=== PATIENT | male | born 2000 | race Two or more races ===

== ENCOUNTER 2023-11-05 14:41 | Outpatient (REF) | payer OTHER, SELFPAY ==
[2023-11-05 16:19] LABS: Immature Retic Fraction 29.6 % (2.3-13.4); Retic HGB Equivalent 35.9 pg (30.0-35.0); Reticulocytes Absolute 0.147 X10*6/uL (0.026-0.095)
[2023-11-05 17:34] LABS: Anion Gap 12 (12-20); Blood Urea Nitrogen 8 mg/dL (9-16); Calcium 9.5 mg/dL (8.4-10.2); Carbon Dioxide 26 mmol/L (22-29); Chloride 106 mmol/L (96-108); Estimated Glomerular Filt Rate > 60; Glucose Random 86 mg/dL (60-115); Potassium 4.1 mmol/L (3.3-5.1); Sodium 140 mmol/L (135-145)
[2023-11-05 17:36] LABS: Alanine Aminotransferase 15 U/L (0-40); Albumin Level 4.3 g/dL (3.5-5.0); Alkaline Phosphatase 61 U/L (39-117); Aspartate Amino Transferase 25 U/L (5-37); Bilirubin Direct 0.5 mg/dL (0.0-0.5); Bilirubin Total 1.4 mg/dL (0.0-1.0); Total Protein 7.8 g/dL (6.5-8.0)
[2023-11-05 20:20] LABS: Creatinine Urine 87.39 mg/dL; Microalbum/Creatinine Ratio Ur 26.3 ug/mg cr (<30)
[2023-11-06 01:58] LABS: CT PCR NOT DETECTED (Not Detect.); NG PCR NOT DETECTED (Not Detect.)
[2023-11-06 08:00] LABS: HBc Num1 0.38 S/CO (0.00-0.79); HBsAGNum1 0.28 S/CO (0.00-0.99); HIV AB/AG Nonreactive (Nonreactive); HIV Num 1 0.05 S/CO (0.00-0.99); Hepatitis A Antibody IgM 0.43 Index (0-0.79); Hepatitis B Core Antibody Nonreactive (Nonreactive); Hepatitis B Surface Antigen Negative (Negative); ~HepC Num1 0.14 S/CO (0.00-0.79); ~Hepatitis A Antibody IgM Nonreactive (Nonreactive); ~Hepatitis B Surface Antibody REACTIVE (Nonreactive); ~Hepatitis C Antibody Nonreactive (Nonreactive)
[2023-11-11 14:28] LABS: Hematocrit 30.6 % (38.5-50.0); Hemoglobin 10.4 g/dL (13.2-17.1); MCH 35.7 pg (27.0-33.0); MCV 105.2 fL (80.0-100.0); RBC 2.91 Million/uL (4.20-5.80); RDW 16.2 % (11.0-15.0)
== END 2023-11-05 14:42 | disposition home or self-care (01) ==
LOC: HO.HHCL 14:41
PROVIDERS: Nurse Practitioner Primary Care; Visit Provider Internal Medicine
DX: D57.1 Sickle-cell disease without crisis (principal); Z20.2 Contact with and (suspected) exposure to infections with a predominantly sexual mode of transmission
CPT/HCPCS: 0353U; 36415; 80048; 80076; 82043; 82570; 83020; 85014; 85018; 85041; 85045; 86592; 86704; 86706; 86709; 86803; 87340; 87389; 87661

== ENCOUNTER 2024-05-22 17:57 | Emergency (ER) | payer OTHER, SELFPAY ==
--- NOTE | ~2024-05-22 | XR_ITS ---
EXAMINATION: XR CHEST CLINICAL INFORMATION: chest pain COMPARISON: Chest pain. TECHNIQUE: 2 views of the chest were obtained. FINDINGS: No significant abnormality is noted involving the heart, lungs, mediastinum, bony thorax or soft tissues. XR/XR chest 2V IMPRESSION: Unremarkable examination. Electronically signed by: Moreno Dykes MD 05/22/2024 07:58 PM [facility]
--- NOTE | 2024-05-22 17:58 | ECG_ITS ---
Test Reason : CP Blood Pressure : / mmHG Vent. Rate : 078 BPM Atrial Rate : 078 BPM P-R Int : 126 ms QRS Dur : 100 ms QT Int : 366 ms P-R-T Axes : 030 037 047 degrees QTc Int : 417 ms Normal sinus rhythm with sinus arrhythmia Normal ECG No previous ECGs available Referred By: Generic ED Physician Electronically Signed By:ISMAEL CHAVEZ
[2024-05-22 18:13] VITALS: BP 145/64; PULSE 87; RESP 18; TEMP 37.2; O2SAT 96; BMI 22.3
--- NOTE | 2024-05-22 18:19 | ED_ITS ---
HPI - Chest Pain General Chief Complaint: Chest Pain Stated Complaint: chest pain Time Seen by Provider: 05/22/24 19:26 Source: patient, RN notes reviewed, old records reviewed and certified court interpreter Mode of arrival: ambulatory Limitations: no limitations History of Present Illness ED Provider: Jennifer KINCAID narrative: 24-year-old male presents for evaluation of chest pain. The patient reports associated nausea and vomiting. His symptoms started about 16 hours ago per his report. Denies any abdominal pain He reports that he has not eaten since his symptoms started so he is unsure if this makes it better or worse He denies any fevers or chills He is unsure if he has a history of sickle cell disease, but he does state he has had similar pains like this in the past His pain is 04/01 Related Data Previous Rx's ?Medication ?Instructions ?Recorded aluminum-mag hydroxide-simethicone 10 ml PO 5XD PRN dyspepsia #3,000 05/22/24 200 mg-200 mg-20 mg/5 mL oral susp mL (Antacid M) omeprazole 20 mg capsule,delayed 20 mg PO DAILY #14 caps 05/22/24 release Allergies Allergy/AdvReac Type Severity Reaction Status Date / Time No Known Allergies Allergy Verified 05/22/24 18:16 Review of Systems 2 Constitutional: Constitutional: Denies body ache(s), Denies chills, Denies fever(s) and Denies headache(s) Eyes: Eyes: Denies irritation ENT: Denies vertigo, Denies dizziness and Denies headache(s) Cardiovascular: Cardiovascular: Reports chest pain and Denies dyspnea Respiratory: Respiratory: Denies cough and Denies dyspnea Gastrointestinal: Gastrointestinal: Denies abdominal pain, Denies nausea and Denies vomiting Musculoskeletal: Musculoskeletal: Denies back pain Integumentary/Breasts: Skin/Breast: Denies rash Neurologic: Denies vertigo, Denies dizziness and Denies headache(s) [facility] Social History Social History Advance Directives: No Advance Directives Information Provided: No Do you have a plan to hurt others: No Plan Physical Exam 2 Vital Signs: Vital Signs: Last Vital Signs Temp 99.2 F 05/22/24 20:23 Pulse 90 05/22/24 20:23 Resp 16 05/22/24 20:23 BP 121/63 05/22/24 20:23 Pulse Ox 96 05/22/24 20:23 O2 Del Method Room Air 05/22/24 20:23 BMI result Body Mass Index 22.3 Const: General: healthy appearing, comfortable, no acute distress, alert and awake Nutritional Appearance: well nourished Orientation/consciousness: p atient oriented x3 HEENT: Head: Yes normocephalic and Yes atraumatic Eyes: Eyelids: Yes eyelids normal Conjunctivae: conjunctivae normal S clerae: sclerae normal Corneas: corneas normal Pupils: Equal, round and reactive pupils present EOM: EOMs intact bilaterally Neck: Neck: Yes full ROM Resp: Effort & Inspection: normal respiratory effort, able to speak in complete sentences, no audible wheezes and not labored Auscultation: clear to auscultation bilaterally Cardio: Rate: regular rate Rhythm: regular rhythm GI: Inspection: No distended Palpation (GI): Soft to palpation, not firm, nontender (Nontender to the entire abdomen including the RUQ, LUQ and epigastrum), no guarding and not rigid Skin: General skin exam: elasticity normal Neuro: General: patient oriented x3 Cranial nerves: Yes Equal, round and reactive pupils present and Yes Bilaterally intact EOM present Cognition (Neuro): normal cognition Course Course Course Narrative: This is a Rapid Medical Examination (RME) performed by Kee Gordillo PA-C in triage. Full HPI, ROS, assessment and treatment plan per primary provider in the Main ED. 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 Denies fever, chills, sore throat, cough, sob, abd pain. + well appearing Plan: labs, ekg, viral swabs, cxr Reevaluation(s) Reevaluation #1: Patient's pain decreased from a 7 to a 2 with GI cocktail. This makes GI etiology much more likely. The patient's EKG is nonischemic, troponin is flat, he rules out for ACS. Again he does appear to have sickle cell disease but does not appear to be in [place] cell crisis, he will be discharged to follow up with GI Time: 21:02 Medications Administered Discontinued Medications Generic Name Dose Route Start Last Admin Trade Name Freq PRN Reason Stop Dose Admin Al Hydroxide/Mg Hydroxide 30 ml 05/22/24 19:38 05/22/24 19:48 Magnesium Hydrox/Alum Hydrox 30 Ml Oral.Susp PO 05/22/24 19:39 30 ml ONCE ONE Administration Lidocaine HCl 15 ml 05/22/24 19:38 05/22/24 19:48 Lidocaine Hcl Viscous 2 % 15 Ml Solution MUCOUS MEM 05/22/24 19:39 15 ml ONCE ONE Administration Ondansetron HCl 4 mg 05/22/24 19:38 05/22/24 19:48 Ondansetron Odt 4 Mg Tab.Rapdis TRANSLINGU 05/22/24 19:39 4 mg ONCE ONE Administration Medical Decision Making Medical Decision Making [facility] Narrative: 24-year-old male presents for evaluation of chest pain. He is quite well appearing vital signs are stable. His EKG is nonischemic. Initial troponin is 5.2. His hematology was not drawn, unclear why. I will make sure this is drawn with his repeat troponin. Based on his previous outpatient labs from October of this year does appear the patient likely has sickle cell disease as he was anemic with a high reticulocyte count. The patient's bilirubin is elevated 2.1 but he has no abdominal pain or tenderness, doubt obstructive biliary disease. Differential Diagnosis Differential Diagnoses: The differential diagnosis associated with the presentation includes Chest pain ACS Sickle cell disease Sickle cell crisis Pneumonia Bronchitis GERD Biliary disease Lab Data [facility] Lab Attestation statement: I reviewed the patient's lab results. Patient has a mild leukocytosis to 13.1 with a left shift. This may be related to a gastritis or viral illness. He does have a chronic anemia with an elevated reticulocyte count. His anemia is consistent with his baseline dating back to October of this year. His reticulocyte count is elevated to 7.8% chemistries show no significant concerning abnormalities. The bilirubin is slightly elevated as documented for, this may be related to sickle cell trait/sickle cell disorder. There was no evidence of sickle cell crisis. The patient's initial troponin was side 5.2 with a repeat of 6.1. 05/22/24 20:29 05/22/24 18:37 Labs: Lab Results 05/22/24 05/22/24 Range/Units 18:37 20:29 WBC 13.1 H (4.8-10.8) X10*3/uL RBC 3.05 L (4.60-5.80) X10*6/uL Hgb 10.4 L (14.0-18.0) g/dl Hct 28.4 L (42.0-52.0) % MCV 93.1 (80.0-98.0) fL MCH 34.1 H (27.0-33.0) pg MCHC 36.6 H (31.0-36.0) g/dl RDW 17.2 H (11.0-16.0) % Plt Count 353 (160-400) X10*3/uL MPV 9.8 (9.4-12.4) fL Immature Gran % (Auto) 1.1 H (0.0-0.4) % Neut % (Auto) 80.5 H (45-73) % Lymph % (Auto) 10.4 L (20-40) % [place] % (Auto) 7.7 (2-11) % Eos % (Auto) 0.1 (0-4) % Baso % (Auto) 0.2 (0-2) % Lymph # (Auto) 1.4 (1.2-4.9) X10*3/uL [place] # (Auto) 1.0 (0.1-1.2) X10*3/uL Eos # (Auto) 0.0 (0.0-0.4) X10*3/uL Baso # (Auto) 0.0 (0.0-0.2) X10*3/uL Abs Immat Gran (auto) 0.14 H (0.00-0.03) X10*3/uL Absolute Neuts (auto) 10.5 H (2.0-8.3) x10*3/uL Absolute Nucleated RBC 0.350 H (0.0-0.012) X10*3/uL Nucleated RBC % (auto) 2.7 H (0.0-0.2) /100WBC Sodium 139 (135-145) mmol/L Potassium 4.3 (3.3-5.1) mmol/L Chloride 104 (96-108) mmol/L Carbon Dioxide 23 (22-29) mmol/L Anion Gap 16 (12-20) BUN 8 L (9-16) mg/dL Creatinine 0.74 (0.5-1.4) mg/dL Estim Creat Clear Calc 150.2 Estimated GFR > 60 Random Glucose 106 (60-115) mg/dL Calcium 9.7 (8.4-10.2) mg/dL Magnesium 1.5 L (1.6-2.6) mg/dL Total Bilirubin 2.1 H (0.0-1.0) mg/dL AST 59 H (5-37) U/L ALT 27 (0-40) U/L Alkaline Phosphatase 69 (39-117) U/L Troponin I High Sens 5.2 6.1 (<3.5-35.0) ng/L Total Protein 8.4 H (6.5-8.0) g/dL Albumin 4.6 (3.5-5.0) g/dL Lipase 12 (8-78) U/L Influenza Type A (PCR) NEGATIVE (Negative) Influenza Type B (PCR) NEGATIVE (Negative) RSV RNA Qual (PCR) NEGATIVE (Negative) SARS-CoV-2 RNA (RT-PCR) NEGATIVE (Negative) Discharge Plan Discharge Clinical Impression: Chest pain Patient Disposition: Home, Self-Care Instructions: Chest Pain (ED), Gastroesophageal Reflux Disease (ED) Additional Instructions: Your symptoms are most likely related to heartburn or gastritis. I recommend taking omeprazole 20 mg daily for the next 2 weeks. You may follow-up with GI, Dr. Granados at the number provided You may use Tylenol for additional pain. I would avoid using ibuprofen as this may worsen your symptoms Prescriptions: New omeprazole 20 mg capsule,delayed release(DR/EC) 20 mg PO DAILY Qty: 14 0RF alum-mag hydroxide-simeth [Antacid M] 200-200-20 mg/5 mL suspension 10 ml PO 5XD PRN (Reason: dyspepsia) Qty: 3000 0RF Rx Instructions: administer between meals and at bedtime Referrals: Dylan Granados MD [Physician] - (GERD) Print Language: Kazakh
[2024-05-22 19:02] LABS: Anion Gap 16 (12-20)
[2024-05-22 19:03] LABS: Alanine Aminotransferase 27 U/L (0-40); Albumin Level 4.6 g/dL (3.5-5.0); Alkaline Phosphatase 69 U/L (39-117); Aspartate Amino Transferase 59 U/L (5-37); Bilirubin Total 2.1 mg/dL (0.0-1.0); Blood Urea Nitrogen 8 mg/dL (9-16); Calcium 9.7 mg/dL (8.4-10.2); Carbon Dioxide 23 mmol/L (22-29); Chloride 104 mmol/L (96-108); Creatinine Clr Calc Pharmacy 150.2; Estimated Glomerular Filt Rate > 60; Glucose Random 106 mg/dL (60-115); Lipase 12 U/L (8-78); Magnesium 1.5 mg/dL (1.6-2.6); Potassium 4.3 mmol/L (3.3-5.1); Sodium 139 mmol/L (135-145); Total Protein 8.4 g/dL (6.5-8.0)
[2024-05-22 19:06] LABS: Troponin-I High Sensitivity 5.2 ng/L (<3.5-35.0)
[2024-05-22 19:22] LABS: Influenza A PCR NEGATIVE (Negative); Influenza B PCR NEGATIVE (Negative); Resp Syncy Virus RNA Qual PCR NEGATIVE (Negative); SARS COV2 PCR INHOUSE NEGATIVE (Negative)
[2024-05-22] MEDS: Ondansetron ODT 4 MG TAB.RAPDIS TRANSLINGU (19:48)
[2024-05-22] MEDS: Magnesium Hydrox/Alum Hydrox 30 ML ORAL.SUSP PO (19:48)
[2024-05-22] MEDS: Lidocaine HCl Viscous 2 % 15 ML SOLUTION MUCOUS MEM (19:48)
--- NOTE | 2024-05-22 19:54 | PC.NURSE ---
pt medicated according to malik family at bedside per myranda karen repeat cbc and trop @ 2044
[2024-05-22 20:23] VITALS: BP 121/63; PULSE 90; RESP 16; TEMP 37.3; O2SAT 96
[2024-05-22 20:34] LABS: Basophils Percent Auto 0.2 % (0-2); Eosinophils Percent Auto 0.1 % (0-4); Hematocrit 28.4 % (42.0-52.0); Hemoglobin 10.4 g/dl (14.0-18.0); Imm Gran Abs Auto 0.14 X10*3/uL (0.00-0.03); Imm Gran Pct Auto 1.1 % (0.0-0.4); Lymphocytes Absolute Auto 1.4 X10*3/uL (1.2-4.9); Lymphocytes Percent Auto 10.4 % (20-40); MANUAL DIFF FLAG NO; Mean Corpuscular HGB Conc 36.6 g/dl (31.0-36.0); Mean Corpuscular Hemoglobin 34.1 pg (27.0-33.0); Mean Corpuscular Volume 93.1 fL (80.0-98.0); Mean Platelet Volume 9.8 fL (9.4-12.4); Monocytes Percent Auto 7.7 % (2-11); Neutrophils Absolute Auto 10.5 x10*3/uL (2.0-8.3); Neutrophils Percent Auto 80.5 % (45-73); Platelet Count 353 X10*3/uL (160-400); Red Blood Count 3.05 X10*6/uL (4.60-5.80); Red Cell Distribution Width 17.2 % (11.0-16.0); White Blood Count 13.1 X10*3/uL (4.8-10.8)
[2024-05-22 20:42] LABS: NRBC Pct Auto 2.7 /100WBC (0.0-0.2)
[2024-05-22 20:53] LABS: Troponin-I High Sensitivity 6.1 ng/L (<3.5-35.0)
[2024-05-22 20:56] LABS: Immature Retic Fraction 20.8 % (2.3-13.4); Reticulocyte Percent 7.8 % (0.5-1.8)
[2024-05-22 21:53] VITALS: BP 118/62; PULSE 88; RESP 16; TEMP 37.2; O2SAT 97
== END 2024-05-22 21:35 | disposition home or self-care (01) ==
PROVIDERS: Physician Assistant; Physician Assistant Medical; Emergency Provider Emergency Medicine Emergency Medical Services
DX: R07.9 Chest pain, unspecified (principal); Z03.818 Encounter for observation for suspected exposure to other biological agents ruled out; R11.2 Nausea with vomiting, unspecified; D64.9 Anemia, unspecified; Z79.899 Other long term (current) drug therapy
CPT/HCPCS: 0241U; 36415; 71046; 80053; 83690; 83735; 84484; 85025; 85045; 93005; 99283; 99285

== ENCOUNTER → 2024-05-22 17:58 | Outpatient (BNV) | payer OTHER, SELFPAY | PROVIDERS: Emergency Provider Emergency Medicine Emergency Medical Services; Visit Provider Internal Medicine | DX: I49.9 Cardiac arrhythmia, unspecified (principal) | CPT/HCPCS: 93010 ==

== ENCOUNTER 2024-06-22 16:08 | Emergency (ER) | payer OTHER, SELFPAY ==
--- NOTE | 2024-06-22 | ECG_ITS ---
Test Reason : CP Blood Pressure : / mmHG Vent. Rate : 059 BPM Atrial Rate : 059 BPM P-R Int : 136 ms QRS Dur : 102 ms QT Int : 400 ms P-R-T Axes : 042 051 053 degrees QTc Int : 396 ms Sinus bradycardia Otherwise normal ECG When compared with ECG of 22-MAY-2024 17:55, No significant change was found Referred By: Generic ED Physician Electronically Signed By:LOUIE BARAHONA MD
--- NOTE | ~2024-06-22 | XR_ITS ---
EXAMINATION: XR CHEST CLINICAL INFORMATION: chest pain COMPARISON: None available. TECHNIQUE: 2 views of the chest were obtained. FINDINGS: No significant abnormality is noted involving the heart, lungs, mediastinum, bony thorax or soft tissues. XR/XR chest 2V IMPRESSION: Unremarkable chest exam. Electronically signed by: Dru Mathur MD 06/22/2024 04:35 PM [facility]
--- NOTE | 2024-06-22 16:22 | ED_ITS ---
HPI - General Adult General Chief complaint: Chest Pain Stated complaint: Chest pain Related Data Previous Rx's ?Medication ?Instructions ?Recorded aluminum-mag hydroxide-simethicone 10 ml PO 5XD PRN dyspepsia #3,000 05/22/24 200 mg-200 mg-20 mg/5 mL oral susp mL (Antacid M) omeprazole 20 mg capsule,delayed 20 mg PO DAILY #14 caps 05/22/24 release aluminum-mag hydroxide-simethicone 10 ml PO 5XD #3,000 mL 06/23/24 200 mg-200 mg-20 mg/5 mL oral susp omeprazole 20 mg capsule,delayed 20 mg PO DAILY #30 caps 06/23/24 release Allergies Allergy/AdvReac Type Severity Reaction Status Date / Time No Known Allergies Allergy Verified 06/23/24 09:52 [facility] Social History Social History Alcohol intake: current Alcohol intake frequency: holidays/special occasions only Smoked in Last 30 Days: No Use of substances other than those prescribed or required for medical reasons: No Advance Directives: No Advance Directives Information Provided: No Do you have a plan to hurt others: No Plan Physical Exam ED Vital Signs: BMI result Body Mass Index 22.0 Course Course Course Narrative: This is a rapid medical exam performed by Nita Cerrato NP: Additional HPI, ROS, PE not included below will be deferred to primary provider. Patient is a 24-year-old Swedish speaking male presenting to the ED with complaint of chest pain. 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 Plan: EKG, labs, CXR Medical Decision Making Lab Data 06/22/24 16:50 06/22/24 16:50 Labs: Lab Results 06/22/24 Range/Units 16:50 WBC 12.6 H (4.8-10.8) X10*3/uL RBC 2.88 L (4.60-5.80) X10*6/uL Hgb 10.1 L (14.0-18.0) g/dl Hct 27.2 L (42.0-52.0) % MCV 94.4 (80.0-98.0) fL MCH 35.1 H (27.0-33.0) pg MCHC 37.1 H (31.0-36.0) g/dl RDW 18.0 H (11.0-16.0) % Plt Count 226 D (160-400) X10*3/uL MPV 10.1 (9.4-12.4) fL Immature Gran % (Auto) 1.5 H (0.0-0.4) % Neut % (Auto) 70.9 (45-73) % Lymph % (Auto) 19.6 L (20-40) % [place] % (Auto) 7.2 (2-11) % Eos % (Auto) 0.5 (0-4) % Baso % (Auto) 0.3 (0-2) % Lymph # (Auto) 2.5 (1.2-4.9) X10*3/uL [place] # (Auto) 0.9 (0.1-1.2) X10*3/uL Eos # (Auto) 0.1 (0.0-0.4) X10*3/uL Baso # (Auto) 0.0 (0.0-0.2) X10*3/uL Abs Immat Gran (auto) 0.19 H (0.00-0.03) X10*3/uL Absolute Neuts (auto) 8.9 H (2.0-8.3) x10*3/uL Absolute Nucleated RBC 0.590 H (0.0-0.012) X10*3/uL Nucleated RBC % (auto) 4.7 H (0.0-0.2) /100WBC Smear Path Review Cancelled Sodium 137 (135-145) mmol/L Potassium 4.7 (3.3-5.1) mmol/L Chloride 107 (96-108) mmol/L Carbon Dioxide 20 L (22-29) mmol/L Anion Gap 15 (12-20) BUN 10 (9-16) mg/dL Creatinine 0.69 (0.5-1.4) mg/dL Estim Creat Clear Calc 159.2 Estimated GFR > 60 Random Glucose 116 H (60-115) mg/dL Calcium 9.5 (8.4-10.2) mg/dL Total Bilirubin 1.9 H (0.0-1.0) mg/dL AST 70 H (5-37) U/L ALT 31 (0-40) U/L Alkaline Phosphatase 70 (39-117) U/L Troponin I High Sens 3.5 (<3.5-35.0) ng/L Total Protein 8.6 H (6.5-8.0) g/dL Albumin 4.6 (3.5-5.0) g/dL Discharge Plan Discharge Clinical Impression: Chest pain Patient Disposition: Left W/O Completing Treatment Prescriptions: No Action omeprazole 20 mg capsule,delayed release(DR/EC) 20 mg PO DAILY Qty: 30 0RF alum-mag hydroxide-simeth 200-200-20 mg/5 mL suspension 10 ml PO 5XD Qty: 3000 0RF Rx Instructions: administer between meals and at bedtime omeprazole 20 mg capsule,delayed release(DR/EC) 20 mg PO DAILY Qty: 14 0RF alum-mag hydroxide-simeth [Antacid M] 200-200-20 mg/5 mL suspension 10 ml PO 5XD PRN (Reason: dyspepsia) Qty: 3000 0RF Rx Instructions: administer between meals and at bedtime Discharge Date/Time: 06/22/24 19:18
[2024-06-22 16:24] VITALS: BP 126/54; PULSE 67; RESP 16; TEMP 36.9; O2SAT 98; BMI 22.0
[2024-06-22 16:54] LABS: MANUAL DIFF FLAG NO
[2024-06-22 16:59] LABS: Basophils Percent Auto 0.3 % (0-2); Eosinophils Absolute Auto 0.1 X10*3/uL (0.0-0.4); Eosinophils Percent Auto 0.5 % (0-4); Hematocrit 27.2 % (42.0-52.0); Hemoglobin 10.1 g/dl (14.0-18.0); Imm Gran Abs Auto 0.19 X10*3/uL (0.00-0.03); Imm Gran Pct Auto 1.5 % (0.0-0.4); Lymphocytes Absolute Auto 2.5 X10*3/uL (1.2-4.9); Lymphocytes Percent Auto 19.6 % (20-40); Mean Corpuscular HGB Conc 37.1 g/dl (31.0-36.0); Mean Corpuscular Hemoglobin 35.1 pg (27.0-33.0); Mean Corpuscular Volume 94.4 fL (80.0-98.0); Mean Platelet Volume 10.1 fL (9.4-12.4); Monocytes Absolute Auto 0.9 X10*3/uL (0.1-1.2); Monocytes Percent Auto 7.2 % (2-11); Neutrophils Absolute Auto 8.9 x10*3/uL (2.0-8.3); Neutrophils Percent Auto 70.9 % (45-73); Platelet Count 226 X10*3/uL (160-400); Red Blood Count 2.88 X10*6/uL (4.60-5.80); White Blood Count 12.6 X10*3/uL (4.8-10.8)
[2024-06-22 17:01] LABS: NRBC Pct Auto 4.7 /100WBC (0.0-0.2)
[2024-06-22 17:15] LABS: Alanine Aminotransferase 31 U/L (0-40); Albumin Level 4.6 g/dL (3.5-5.0); Alkaline Phosphatase 70 U/L (39-117); Anion Gap 15 (12-20); Aspartate Amino Transferase 70 U/L (5-37); Bilirubin Total 1.9 mg/dL (0.0-1.0); Blood Urea Nitrogen 10 mg/dL (9-16); Calcium 9.5 mg/dL (8.4-10.2); Carbon Dioxide 20 mmol/L (22-29); Chloride 107 mmol/L (96-108); Creatinine Clr Calc Pharmacy 159.2; Estimated Glomerular Filt Rate > 60; Glucose Random 116 mg/dL (60-115); Potassium 4.7 mmol/L (3.3-5.1); Sodium 137 mmol/L (135-145); Total Protein 8.6 g/dL (6.5-8.0)
[2024-06-22 17:36] LABS: Troponin-I High Sensitivity 3.5 ng/L (<3.5-35.0)
== END 2024-06-22 19:18 | disposition left against medical advice (07) ==
PROVIDERS: Registered Nurse Emergency; Emergency Provider Emergency Medicine
DX: R07.89 Other chest pain (principal); Z79.899 Other long term (current) drug therapy
CPT/HCPCS: 36415; 71046; 80053; 84484; 85025; 93005; 99283

== ENCOUNTER → 2024-06-22 16:12 | Outpatient (BNV) | payer OTHER, SELFPAY | PROVIDERS: Emergency Provider Emergency Medicine; Visit Provider Internal Medicine Cardiovascular Disease | DX: R07.9 Chest pain, unspecified (principal) | CPT/HCPCS: 93010 ==

== ENCOUNTER → 2024-06-22 16:26 | Outpatient (BNV) | payer OTHER, SELFPAY | PROVIDERS: Visit Provider Radiology Diagnostic Radiology | DX: R07.9 Chest pain, unspecified (principal) | CPT/HCPCS: 71046 ==

== ENCOUNTER 2024-06-23 09:43 | Emergency (ER) | payer OTHER, SELFPAY ==
[2024-06-23 09:51] VITALS: BP 136/81; PULSE 85; RESP 18; TEMP 37.1; O2SAT 95; BMI 26.4
--- NOTE | 2024-06-23 09:54 | ECG_ITS ---
Test Reason : CHEST PAIN Blood Pressure : / mmHG Vent. Rate : 082 BPM Atrial Rate : 082 BPM P-R Int : 132 ms QRS Dur : 100 ms QT Int : 376 ms P-R-T Axes : 043 023 024 degrees QTc Int : 439 ms Normal sinus rhythm with sinus arrhythmia Normal ECG When compared with ECG of 22-JUN-2024 16:12, No significant change was found Referred By: Generic ED Physician Electronically Signed By:LOUIE BARAHONA MD
[2024-06-23 10:08] LABS: MANUAL DIFF FLAG NO
[2024-06-23 10:09] LABS: Basophils Percent Auto 0.3 % (0-2); Eosinophils Absolute Auto 0.1 X10*3/uL (0.0-0.4); Eosinophils Percent Auto 0.4 % (0-4); Hematocrit 27.4 % (42.0-52.0); Hemoglobin 10.2 g/dl (14.0-18.0); Imm Gran Abs Auto 0.05 X10*3/uL (0.00-0.03); Imm Gran Pct Auto 0.4 % (0.0-0.4); Lymphocytes Absolute Auto 2.8 X10*3/uL (1.2-4.9); Lymphocytes Percent Auto 23.3 % (20-40); Mean Corpuscular HGB Conc 37.2 g/dl (31.0-36.0); Mean Corpuscular Hemoglobin 34.8 pg (27.0-33.0); Mean Corpuscular Volume 93.5 fL (80.0-98.0); Mean Platelet Volume 9.4 fL (9.4-12.4); Monocytes Absolute Auto 0.9 X10*3/uL (0.1-1.2); Monocytes Percent Auto 7.5 % (2-11); NRBC Pct Auto 4.9 /100WBC (0.0-0.2); Neutrophils Absolute Auto 8.1 x10*3/uL (2.0-8.3); Neutrophils Percent Auto 68.1 % (45-73); Platelet Count 256 X10*3/uL (160-400); Red Blood Count 2.93 X10*6/uL (4.60-5.80); Red Cell Distribution Width 18.3 % (11.0-16.0); White Blood Count 11.8 X10*3/uL (4.8-10.8)
--- NOTE | 2024-06-23 10:27 | ED_ITS ---
HPI - General Adult General Chief complaint: General Medical Stated complaint: chest pain abd pain Time Seen by Provider: 06/23/24 10:26 Source: patient, RN notes reviewed, old records reviewed and interpreter and translator Mode of arrival: ambulatory Limitations: language barrier History of Present Illness ED Provider: Saqib KINCAID narrative: Patient is a 24-year-old male presenting with complaint of chest and abdominal pain for the past few days as well as nausea, vomiting, and gas/bloating. Presented here yesterday for similar complaints but left from the waiting room due to long wait time. States that he was also seen in this ED around one month ago for similar complaints and was prescribed medications, but when he went to pick them up, they were not at his pharmacy. Denies fevers, chills, body aches. Denies diarrhea or constipation. Denies hematemesis. MD complaint: chest and abdominal pain Onset (ago): day(s) Location: chest and abdomen Severity: severe Quality: burning Pain Consistency: constant Associated symptoms: nausea/vomiting Treatments prior to arrival: none Related Data Previous Rx's ?Medication ?Instructions ?Recorded aluminum-mag hydroxide-simethicone 10 ml PO 5XD PRN dyspepsia #3,000 05/22/24 200 mg-200 mg-20 mg/5 mL oral susp mL (Antacid M) omeprazole 20 mg capsule,delayed 20 mg PO DAILY #14 caps 05/22/24 release aluminum-mag hydroxide-simethicone 10 ml PO 5XD #3,000 mL 06/23/24 200 mg-200 mg-20 mg/5 mL oral susp omeprazole 20 mg capsule,delayed 20 mg PO DAILY #30 caps 06/23/24 release Allergies Allergy/AdvReac Type Severity Reaction Status Date / Time No Known Allergies Allergy Verified 06/23/24 09:52 Review of Systems 2 Review of Systems: As per HPI. Yes all other systems are reviewed and are negative Constitutional: Constitutional: Reports as per HPI PMF Social History Social History Alcohol intake: current Alcohol intake frequency: holidays/special occasions only Smoked in Last 30 Days: No Use of substances other than those prescribed or required for medical reasons: No Advance Directives: No Advance Directives Information Provided: No Do you have a plan to hurt others: No Plan Physical Exam ED Vital Signs: Vital Signs - 24 hr 06/23/24 09:51 06/23/24 10:59 06/23/24 14:16 Temperature 98.7 F 98.2 F Pulse Rate 85 66 83 Respiratory Rate 18 18 18 Blood Pressure 136/81 109/54 L 122/70 Pulse Oximetry 95 98 96 Oxygen Delivery Method Room Air Room Air Room Air BMI result Body Mass Index 26.4 Vital signs have been reviewed and appear to be correct. Blood pressure normal. Heart rate normal. Respiratory rate normal. Temperature normal. Oxygen saturation normal. Const General: cooperative, healthy appearing and no acute distress Orientation/consciousness: oriented to person, oriented to place, oriented to time and patient oriented x3 Limitations: no limitations HENMT Head: Yes normocephalic and Yes atraumatic Ears: external ears normal General nose exam: Normal external nose present Face and sinus: Yes face symmetric Mouth: oropharynx normal and moist mucous membranes Throat: Yes uvula midline Eyes Pupils: Equal, round and reactive pupils present Neck Neck: Yes normal visual inspection and Yes supple Resp Effort & Inspection: normal respiratory effort and able to speak in complete sentences Auscultation: clear to auscultation bilaterally Cardio Rate: regular rate Rhythm: regular rhythm Heart sounds: S1 normal heart sound present and S2 normal heart sound present GI Inspection: Yes normal to inspection Palpation (GI): Soft to palpation, Tenderness to palpation present (GI) in the epigastrum, no guarding and No Rebound tenderness present Auscultation: normoactive bowel sounds General: Yes no CVA tenderness Back/Spine/Pelvis Back: no CVA tenderness Skin General skin exam: elasticity normal and turgor normal Neuro General: oriented to person, oriented to place, oriented to time, patient oriented x3, moves all extremities, no focal motor deficits and CN's II-XI intact bilaterally Cranial nerves: Yes Equal, round and reactive pupils present Cognition (Neuro): normal cognition Extrem General: Yes full ROM, Yes no pedal edema and Yes no calf tenderness Psych Mental Status: mental status grossly normal Affect: normal affect Thought process: Normal thought process present Medications Administered Discontinued Medications Generic Name Dose Route Start Last Admin Trade Name Freq PRN Reason Stop Dose Admin Al Hydroxide/Mg Hydroxide 30 ml 06/23/24 11:21 06/23/24 12:34 Magnesium Hydrox/Alum Hydrox 30 Ml Oral.Susp PO 06/23/24 11:22 30 ml ONCE ONE Administration Famotidine 20 mg 06/23/24 10:37 06/23/24 11:15 Famotidine/Pf 20 Mg/2 Ml Vial IVPUSH 06/23/24 10:38 20 mg ONCE ONE Administration Hydromorphone HCl 1 mg 06/23/24 12:42 06/23/24 14:18 Hydromorphone Hcl 1 Mg/Ml Syringe IVPUSH 06/23/24 12:43 Not Given ONCE ONE Protocol Sodium Chloride 1,000 mls @ 999 mls/hr 06/23/24 10:45 06/23/24 12:33 Ns IV 06/23/24 11:45 Infused .Q1H1M MATILDE Infusion Lidocaine HCl 15 ml 06/23/24 11:21 06/23/24 12:34 Lidocaine Hcl Viscous 2 % 15 Ml Solution MUCOUS MEM 06/23/24 11:22 15 ml ONCE ONE Administration Ondansetron HCl 4 mg 06/23/24 10:37 06/23/24 11:15 Ondansetron Hcl 4 Mg/2 Ml Vial IVPUSH 06/23/24 10:38 4 mg ONCE ONE Administration Medical Decision Making Medical Decision Making MDM Narrative: Patient is a 24-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 On exam patient is awake, A+Ox3, in no acute distress, VS WNL, afebrile, normal neurological exam without focal deficits, physical exam findings as above. Given reported symptoms and physical exam findings, initial differential includes but is not limited to GERD, PUD, gastritis, sickle cell crisis. Labs notable for anemia consistent with prior lab values, elevated Tbili and AST similar to prior, troponin of 3.8, will obtain repeat. X-ray chest obtained yesterday while patient in the waiting room notable for no evidence of pneumonia, pneumothorax, cardiomegaly. My interpretation is in agreement with the radiologist's interpretation. Patient reports significant improvement in pain after medications given in the ED. No delta on repeat troponin. He states that he is ready for discharge home. I am in agreement with this. Will refer patient to GI for any ongoing symptoms. Will send prescriptions for omeprazole and antacid. Return precautions discussed at bedside. Patient verbalized understanding of and agreement with plan. In- person aerial photograph interpreter was utilized for all interactions, assessments, and discussions. Differential Diagnosis Differential Diagnoses: The differential diagnosis associated with the presentation includes as per [facility] Admission/Observation Consideration of admission/observation: Escalation of care including admission/observation considered Patient would have been admitted to the hospital had their work up had any findings where hospital admission was appropriate and their clinical presentation warranted hospital admission. Lab Data [facility] Lab Attestation statement: I reviewed the patient's lab results. as per [facility] 06/23/24 10:03 06/23/24 10:03 Labs: Lab Results 06/23/24 06/23/24 Range/Units 10:03 13:50 WBC 11.8 H (4.8-10.8) X10*3/uL RBC 2.93 L (4.60-5.80) X10*6/uL Hgb 10.2 L (14.0-18.0) g/dl Hct 27.4 L (42.0-52.0) % MCV 93.5 (80.0-98.0) fL MCH 34.8 H (27.0-33.0) pg MCHC 37.2 H (31.0-36.0) g/dl RDW 18.3 H (11.0-16.0) % Plt Count 256 (160-400) X10*3/uL MPV 9.4 (9.4-12.4) fL Immature Gran % (Auto) 0.4 (0.0-0.4) % Neut % (Auto) 68.1 (45-73) % Lymph % (Auto) 23.3 (20-40) % [place] % (Auto) 7.5 (2-11) % Eos % (Auto) 0.4 (0-4) % Baso % (Auto) 0.3 (0-2) % Lymph # (Auto) 2.8 (1.2-4.9) X10*3/uL [place] # (Auto) 0.9 (0.1-1.2) X10*3/uL Eos # (Auto) 0.1 (0.0-0.4) X10*3/uL Baso # (Auto) 0.0 (0.0-0.2) X10*3/uL Abs Immat Gran (auto) 0.05 H (0.00-0.03) X10*3/uL Absolute Neuts (auto) 8.1 (2.0-8.3) x10*3/uL Absolute Nucleated RBC 0.580 H (0.0-0.012) X10*3/uL Nucleated RBC % (auto) 4.9 H (0.0-0.2) /100WBC Absolute Retic 0.303 H (0.026-0.095) X10*6/uL Percent Retic 9.8 H (0.5-1.8) % Immature Retic Fraction 34.0 H (2.3-13.4) % Retic Hgb Equivalent 31.7 (30.0-35.0) pg Sodium 140 (135-145) mmol/L Potassium 4.0 (3.3-5.1) mmol/L Chloride 106 (96-108) mmol/L Carbon Dioxide 24 (22-29) mmol/L Anion Gap 14 (12-20) BUN 10 (9-16) mg/dL Creatinine 0.78 (0.5-1.4) mg/dL Estim Creat Clear Calc 123.9 Estimated GFR > 60 Random Glucose 115 (60-115) mg/dL Calcium 9.3 (8.4-10.2) mg/dL Total Bilirubin 2.5 H (0.0-1.0) mg/dL AST 59 H (5-37) U/L ALT 28 (0-40) U/L Alkaline Phosphatase 71 (39-117) U/L Troponin I High Sens 3.8 4.2 (<3.5-35.0) ng/L Total Protein 8.3 H (6.5-8.0) g/dL Albumin 4.5 (3.5-5.0) g/dL Independent Interpretation I performed an independent interpretation of an: EKG External Record Review External record reviewed: Inpatient record, Office record and Outpatient record Prescription Management I considered prescription management with: Other Discharge Plan Discharge Clinical Impression: Acute epigastric pain Patient Disposition: Home, Self-Care Instructions: Acute Abdominal Pain (DC), Epigastric Pain (ED), Chest Pain (DC) Additional Instructions: You were evalutated in the ED today for chest and abdominal pain. Your evaluation was reassuring. Your symptoms improved with medication. You are being prescribed medications, pick these up from the pharmacy and take as prescribed. If your symptoms continue, call the gastroenterology office to schedule a follow up appointment. Prescriptions: New omeprazole 20 mg capsule,delayed release(DR/EC) 20 mg PO DAILY Qty: 30 0RF alum-mag hydroxide-simeth 200-200-20 mg/5 mL suspension 10 ml PO 5XD Qty: 3000 0RF Rx Instructions: administer between meals and at bedtime No Action omeprazole 20 mg capsule,delayed release(DR/EC) 20 mg PO DAILY Qty: 14 0RF alum-mag hydroxide-simeth [Antacid M] 200-200-20 mg/5 mL suspension 10 ml PO 5XD PRN (Reason: dyspepsia) Qty: 3000 0RF Rx Instructions: administer between meals and at bedtime Referrals: [facility] [Provider Group] Print Language: Ivorian
[2024-06-23 10:32] LABS: Albumin Level 4.5 g/dL (3.5-5.0); Alkaline Phosphatase 71 U/L (39-117); Anion Gap 14 (12-20); Aspartate Amino Transferase 59 U/L (5-37); Bilirubin Total 2.5 mg/dL (0.0-1.0); Blood Urea Nitrogen 10 mg/dL (9-16); Calcium 9.3 mg/dL (8.4-10.2); Carbon Dioxide 24 mmol/L (22-29); Chloride 106 mmol/L (96-108); Creatinine Clr Calc Pharmacy 123.9; Estimated Glomerular Filt Rate > 60; Glucose Random 115 mg/dL (60-115); Sodium 140 mmol/L (135-145); Total Protein 8.3 g/dL (6.5-8.0)
[2024-06-23 10:36] LABS: Alanine Aminotransferase 28 U/L (0-40)
[2024-06-23 10:47] LABS: Troponin-I High Sensitivity 3.8 ng/L (<3.5-35.0)
[2024-06-23 10:59] VITALS: BP 109/54; PULSE 66; RESP 18; TEMP 36.8; O2SAT 98
[2024-06-23] MEDS: Famotidine/PF 20 MG/2 ML VIAL IVPUSH (11:15)
[2024-06-23] MEDS: ondansetron HCL 4 MG/2 ML VIAL IVPUSH (11:15)
[2024-06-23] MEDS: 0.9 % Sodium Chloride 1,000 ML 999 ML IV (11:15)
[2024-06-23 11:19] LABS: Retic HGB Equivalent 31.7 pg (30.0-35.0); Reticulocyte Percent 9.8 % (0.5-1.8); Reticulocytes Absolute 0.303 X10*6/uL (0.026-0.095)
[2024-06-23] MEDS: Lidocaine HCl Viscous 2 % 15 ML SOLUTION MUCOUS MEM (12:34)
[2024-06-23] MEDS: Magnesium Hydrox/Alum Hydrox 30 ML ORAL.SUSP PO (12:34)
[2024-06-23 14:16] VITALS: BP 122/70; PULSE 83; RESP 18; O2SAT 96
[2024-06-23 14:21] LABS: Troponin-I High Sensitivity 4.2 ng/L (<3.5-35.0)
[2024-06-23 15:19] VITALS: BP 122/70; PULSE 83; RESP 18; TEMP 36.8; O2SAT 96
== END 2024-06-23 15:20 | disposition home or self-care (01) ==
PROVIDERS: Registered Nurse Emergency; Emergency Provider Emergency Medicine
DX: R10.13 Epigastric pain (principal); R11.2 Nausea with vomiting, unspecified; R07.9 Chest pain, unspecified; Z79.899 Other long term (current) drug therapy
CPT/HCPCS: 36415; 80053; 84484; 85025; 85045; 93005; 96361; 96374; 96375; 99284; J2405

== ENCOUNTER → 2024-06-23 09:54 | Outpatient (BNV) | payer OTHER, SELFPAY | PROVIDERS: Emergency Provider Emergency Medicine; Visit Provider Internal Medicine Cardiovascular Disease | DX: R07.9 Chest pain, unspecified (principal) | CPT/HCPCS: 93010 ==

== ENCOUNTER 2024-09-01 14:33 | Inpatient (IN) | payer OTHER, SELFPAY ==
[2024-09-01] VITALS (9 sets, daily range): BP systolic 98–153; BP diastolic 45–63; PULSE 57–96; RESP 13–23; TEMP 36.2–38.3; O2SAT 93–98; BMI 24.5
--- NOTE | ~2024-09-01 | CT_ITS ---
CLINICAL HISTORY: pain CT ABDOMEN AND PELVIS WITH CONTRAST Comparison: None Findings: The lung bases are clear. The gallbladder and solid organs are within normal limits. No renal stones. No bowel obstruction, pneumoperitoneum, or pneumatosis. No ascites. No significant mesenteric or paracolic edema. Large amount of stool in the colon. There is fecal material in the distal small bowel. Smooth luminal narrowing in the sigmoid with no adjacent fat stranding likely represents spasm. Appendix is not identified with certainty. No significant inflammatory changes are seen in its expected location. There are multiple small mesenteric lymph nodes in the right abdomen. Urinary bladder and prostate unremarkable. No acute fracture. IMPRESSION: 1. No obstructive or acute inflammatory changes in the gastrointestinal and genitourinary tracts. 2. Large colonic stool burden. Nonspecific small bowel feces. 3. Increased number of prominent mesenteric lymph nodes in the right abdomen for which the possibility of mesenteric adenitis is raised. This document has been electronically signed by: Deborah Sparrow DO on 09/01/2024 17:30:55
--- NOTE | ~2024-09-01 | XR_ITS ---
EXAMINATION: XR CHEST CLINICAL INFORMATION: pain COMPARISON: None available. TECHNIQUE: Frontal view of the chest was obtained. FINDINGS: Mild cardiac prominence, likely magnification from AP technique. Mediastinal and hilar contours appear normal. The lungs are clear bilaterally. No pneumothorax or effusion. No focal osseous or soft tissue abnormality. XR/XR chest 1V IMPRESSION: Mild prominence of the cardiac silhouette, likely magnification related to technique. Otherwise normal exam. Electronically signed by: Mesfin Buchanan MD 09/01/2024 04:43 PM EDT
--- NOTE | 2024-09-01 15:14 | ECG_ITS ---
Test Reason : ABD PAIN Blood Pressure : */* mmHG Vent. Rate : 85 BPM Atrial Rate : 85 BPM P-R Int : 136 ms QRS Dur : 102 ms QT Int : 362 ms P-R-T Axes : 52 52 39 degrees QTcB Int : 430 ms Sinus rhythm with marked sinus arrhythmia Otherwise normal ECG When compared with ECG of 23-Jun-2024 09:57, No significant change was found Referred By: Generic ED Physician Electronically Signed By: ISMAEL CHAVEZ
[2024-09-01 15:25] LABS: MANUAL DIFF FLAG NO
[2024-09-01 15:28] LABS: Basophils Percent Auto 0.2 % (0-2); Eosinophils Absolute Auto 0.1 X10*3/uL (0.0-0.4); Eosinophils Percent Auto 0.2 % (0-4); Hematocrit 27.7 % (42.0-52.0); Hemoglobin 10.4 g/dl (14.0-18.0); Imm Gran Abs Auto 0.29 X10*3/uL (0.00-0.03); Imm Gran Pct Auto 1.4 % (0.0-0.4); Lymphocytes Percent Auto 14.6 % (20-40); Mean Corpuscular HGB Conc 37.5 g/dl (31.0-36.0); Mean Corpuscular Hemoglobin 34.1 pg (27.0-33.0); Mean Corpuscular Volume 90.8 fL (80.0-98.0); Monocytes Absolute Auto 1.1 X10*3/uL (0.1-1.2); Monocytes Percent Auto 5.5 % (2-11); Neutrophils Absolute Auto 15.8 x10*3/uL (2.0-8.3); Neutrophils Percent Auto 78.1 % (45-73); Red Blood Count 3.05 X10*6/uL (4.60-5.80); Red Cell Distribution Width 16.9 % (11.0-16.0); White Blood Count 20.2 X10*3/uL (4.8-10.8)
[2024-09-01 15:33] LABS: NRBC Pct Auto 1.4 /100WBC (0.0-0.2)
[2024-09-01 15:39] LABS: INTERNATIONAL NORM RATIO 1.2 (0.9-1.1); Prothrombin Time 14.5 SEC (10.9-12.4)
[2024-09-01 15:48] LABS: Troponin-I High Sensitivity 4.6 ng/L (<3.5-35.0)
[2024-09-01 15:55] LABS: Mean Platelet Volume 9.3 fL (9.4-12.4); Platelet Count 627 X10*3/uL (160-400)
[2024-09-01 15:56] LABS: Alanine Aminotransferase 29 U/L (0-40); Albumin Level 4.4 g/dL (3.5-5.0); Anion Gap 13 (12-20); Aspartate Amino Transferase 57 U/L (5-37); Bilirubin Total 1.7 mg/dL (0.0-1.0); Blood Urea Nitrogen 11 mg/dL (9-16); Calcium 9.7 mg/dL (8.4-10.2); Carbon Dioxide 24 mmol/L (22-29); Chloride 106 mmol/L (96-108); Creatinine Clr Calc Pharmacy 134.6; Estimated Glomerular Filt Rate > 60; Glucose Random 153 mg/dL (60-115); Magnesium 1.4 mg/dL (1.6-2.6); Potassium 4.2 mmol/L (3.3-5.1); Sodium 139 mmol/L (135-145); Total Protein 8.7 g/dL (6.5-8.0)
--- NOTE | 2024-09-01 16:11 | ED.GENADULT ---
HPI - General Adult General Chief complaint: General Medical Stated complaint: Liberian speaking only, chest pain, poss sickle princess Time Seen by Provider: 09/01/24 16:10 Source: patient Limitations: no limitations and language barrier History of Present Illness ED Provider: Sherita Proctor PA-C HPI narrative: 24-year-old male with a history of sickle cell disease presents with pain. Patient states she developed diffuse abdominal and chest discomfort earlier today with the associated nausea vomiting. Denies sick contacts with same symptoms, diarrhea, fever or recent cough or cold symptoms. Denies shortness of breath. Related Data Previous Rx's ?Medication ?Instructions ?Recorded aluminum-mag hydroxide-simethicone 10 ml PO 5XD PRN dyspepsia #3,000 05/22/24 200 mg-200 mg-20 mg/5 mL oral susp mL (Antacid M) omeprazole 20 mg capsule,delayed 20 mg PO DAILY #14 caps 05/22/24 release aluminum-mag hydroxide-simethicone 10 ml PO 5XD #3,000 mL 06/23/24 200 mg-200 mg-20 mg/5 mL oral susp omeprazole 20 mg capsule,delayed 20 mg PO DAILY #30 caps 06/23/24 release Allergies Allergy/AdvReac Type Severity Reaction Status Date / Time No Known Allergies Allergy Verified 09/01/24 15:13 Review of Systems Review of Systems: Yes all other systems are reviewed and are negative Constitutional: Constitutional: Denies fatigue and Denies fever(s) Cardiovascular: Cardiovascular: Reports chest pain and Denies dyspnea Respiratory: Respiratory: Denies cough and Denies dyspnea Gastrointestinal: Gastrointestinal: Reports abdominal pain, Denies diarrhea, Reports nausea and Reports vomiting Endocrine: Endocrine: Denies fatigue [facility] Past Medical History Attestation statement: The following information was validated with the patient. Social History Social History Alcohol intake: current Alcohol intake frequency: holidays/special occasions only Smoked in Last 30 Days: No Use of substances other than those prescribed or required for medical reasons: Yes Substance Use Type: Marijuana Advance Directives: No Advance Directives Information Provided: Yes Do you have a plan to hurt others: No Plan Physical Exam ED Vital Signs: Vital Signs - 24 hr 09/01/24 15:12 09/01/24 16:50 09/01/24 17:16 Temperature 100.9 F H 99.3 F Pulse Rate 89 75 Respiratory Rate 18 14 Blood Pressure 98/45 L 120/54 L Pulse Oximetry 98 96 Oxygen Delivery Method Room Air Room Air 09/01/24 18:36 09/01/24 18:45 09/01/24 18:48 Temperature 98.6 F Pulse Rate 90 81 95 Respiratory Rate 23 H 13 13 Blood Pressure 125/53 L 123/56 L 123/56 L Pulse Oximetry 95 95 Oxygen Delivery Method Room Air Room Air BMI result Body Mass Index 24.5 Const Other: Alert, ill-appearing appears extremely uncomfortable Orientation/consciousness: patient oriented x3 HENMT Other: Dry oral mucosa, dry cracked lips Resp Effort & Inspection: normal respiratory effort Cardio Other: Normal peripheral perfusion GI Other: Abdomen is soft, nondistended, generalized tenderness to palpation without guarding Skin Other: Warm dry no rash Neuro General: patient oriented x3, gait normal, no focal motor deficits and CN's II-XI intact bilaterally Psych Other: Cooperative Course Reevaluation(s) Reevaluation #1: Concern for sepsis, the patient's pressures are soft, he has a leukocytosis of 20, adding on blood cultures, lactic acid, weight based IV fluid, ceftriaxone, we need to check if he has a fever.... Adding SARs and a chest x-ray, scanning his abdomen. His focus of pain is chest and abdomen and he has been vomiting. Time: 16:20 Medications Administered Discontinued Medications Generic Name Dose Route Start Last Admin Trade Name Eliceoq PRN Reason Stop Dose Admin Acetaminophen 975 mg 09/01/24 16:52 09/01/24 17:16 Acetaminophen 325 Mg Tablet PO 09/01/24 16:53 975 mg ONCE ONE Administration Ceftriaxone Sodium 2 gm 09/01/24 16:14 09/01/24 16:34 Ceftriaxone Sodium 2 Gm Vial IVPUSH 09/01/24 16:15 2 gm ONCE ONE Administration Hydromorphone HCl 1 mg 09/01/24 16:12 09/01/24 16:34 Hydromorphone Hcl 1 Mg/Ml Syringe IVPUSH 09/01/24 16:13 1 mg ONCE ONE Administration Protocol Hydromorphone HCl 1 mg 09/01/24 17:41 09/01/24 17:54 Hydromorphone Hcl 1 Mg/Ml Syringe IVPUSH 09/01/24 17:42 1 mg ONCE ONE Administration Protocol Magnesium Sulfate 2 gm in 50 mls @ 25 mls/hr 09/01/24 16:12 09/01/24 18:37 Magnesium Sulfate/H2o IV 09/01/24 18:11 Infused ONCE ONE Infusion Sodium Chloride 2,068.38 mls @ 2,068.38 mls/hr 09/01/24 16:14 09/01/24 18:32 Ns 30 ml/kg infuse over 1 hr (2068.38 ml) 09/01/24 17:13 Infused IV Infusion .Q1H STA Iohexol 100 ml 09/01/24 16:55 09/01/24 16:55 Iohexol 350 Mg/Ml 100 Ml Infus..Btl IV 09/01/24 16:56 85 ml ONCE ONE Administration Ketorolac Tromethamine 15 mg 09/01/24 16:12 09/01/24 16:34 Ketorolac Tromethamine 15 Mg/Ml Vial IVPUSH 09/01/24 16:13 15 mg ONCE ONE Administration Ondansetron HCl 4 mg 09/01/24 16:18 09/01/24 16:35 Ondansetron Hcl 4 Mg/2 Ml Vial IVPUSH 09/01/24 16:19 4 mg ONCE ONE Administration Medical Decision Making Medical Decision Making MDM Narrative: 24-year-old male with a history of sickle cell disease presents with pain. Patient states she developed diffuse abdominal and chest discomfort earlier today with the associated nausea vomiting. Denies sick contacts with same symptoms, diarrhea, fever or recent cough or cold symptoms. Denies shortness of breath. Problem: Sickle cell disease History: Per patient I have considered the following differential diagnoses: Sepsis, viral syndrome, pneumonia, viral gastroenteritis, acute intra-abdominal pathology, sickle cell crisis, acute chest syndrome Plan: Concern for sepsis, the patient's pressures are soft, he has a leukocytosis of 20, adding on blood cultures, lactic acid, weight based IV fluid, ceftriaxone, we need to check if he has a fever.... Adding SARs and a chest x-ray, scanning his abdomen. His focus of pain is chest and abdomen and he has been vomiting. Thought about acute chest syndrome, however his troponin is not elevated, there were no ischemic changes on EKG he is not hypoxic. Were tick count was ordered as well with the his initial screening labs. His Mag was low we will add on 2 g of IV magnesium I have independently reviewed the following tests: Labs: Leukocytosis with left shift, not anemic, he has reticulocytes, he is not an aplastic crisis, magnesium low at 1.4, we will replenish, no additional electrolyte abnormalities, delta trop 3.8, viral panel pending neg EKG: Sinus rhythm, rate 85, no ischemic changes no ectopy QTC 430 Chest x-ray: XR/XR chest 1V IMPRESSION: Mild prominence of the cardiac silhouette, likely magnification related to technique. Otherwise normal exam. CT abdomen and pelvis:IMPRESSION: 1. No obstructive or acute inflammatory changes in the gastrointestinal and genitourinary tracts. 2. Large colonic stool burden. Nonspecific small bowel feces. 3. Increased number of prominent mesenteric lymph nodes in the right abdomen for which the possibility of mesenteric adenitis is raised. Lab Data 09/01/24 15:22 09/01/24 15:22 Labs: Lab Results 09/01/24 09/01/24 09/01/24 Range/Units 15:22 16:34 17:37 WBC 20.2 H (4.8-10.8) X10*3/uL RBC 3.05 L (4.60-5.80) X10*6/uL Hgb 10.4 L (14.0-18.0) g/dl Hct 27.7 L (42.0-52.0) % MCV 90.8 (80.0-98.0) fL MCH 34.1 H (27.0-33.0) pg MCHC 37.5 H (31.0-36.0) g/dl RDW 16.9 H (11.0-16.0) % Plt Count 627 H D (160-400) X10*3/uL MPV 9.3 L (9.4-12.4) fL Immature Gran % (Auto) 1.4 H (0.0-0.4) % Neut % (Auto) 78.1 H (45-73) % Lymph % (Auto) 14.6 L (20-40) % [place] % (Auto) 5.5 (2-11) % Eos % (Auto) 0.2 (0-4) % Baso % (Auto) 0.2 (0-2) % Lymph # (Auto) 3.0 (1.2-4.9) X10*3/uL [place] # (Auto) 1.1 (0.1-1.2) X10*3/uL Eos # (Auto) 0.1 (0.0-0.4) X10*3/uL Baso # (Auto) 0.0 (0.0-0.2) X10*3/uL Abs Immat Gran (auto) 0.29 H (0.00-0.03) X10*3/uL Absolute Neuts (auto) 15.8 H (2.0-8.3) x10*3/uL Absolute Nucleated RBC 0.290 H (0.0-0.012) X10*3/uL Nucleated RBC % (auto) 1.4 H (0.0-0.2) /100WBC Absolute Retic 0.232 H (0.026-0.095) X10*6/uL Percent Retic 7.8 H (0.5-1.8) % Immature Retic Fraction 32.8 H (2.3-13.4) % Retic Hgb Equivalent 31.5 (30.0-35.0) pg PT 14.5 H (10.9-12.4) SEC INR 1.2 H (0.9-1.1) Sodium 139 (135-145) mmol/L Potassium 4.2 (3.3-5.1) mmol/L Chloride 106 (96-108) mmol/L Carbon Dioxide 24 (22-29) mmol/L Anion Gap 13 (12-20) BUN 11 (9-16) mg/dL Creatinine 0.77 (0.5-1.4) mg/dL Estim Creat Clear Calc 134.6 Estimated GFR > 60 Random Glucose 153 H (60-115) mg/dL Lactic Acid 1.2 (0.5-2.0) mmol/L Calcium 9.7 (8.4-10.2) mg/dL Magnesium 1.4 L* (1.6-2.6) mg/dL Total Bilirubin 1.7 H (0.0-1.0) mg/dL AST 57 H (5-37) U/L ALT 29 (0-40) U/L Alkaline Phosphatase 72 (39-117) U/L Troponin I High Sens 4.6 3.8 (<3.5-35.0) ng/L Total Protein 8.7 H (6.5-8.0) g/dL Albumin 4.4 (3.5-5.0) g/dL Influenza Type A (PCR) NEGATIVE (Negative) Influenza Type B (PCR) NEGATIVE (Negative) RSV RNA Qual (PCR) NEGATIVE (Negative) SARS-CoV-2 RNA (RT-PCR) NEGATIVE (Negative) Blood Type O Positive Antibody Screen NEGATIVE Discharge Plan Discharge Clinical Impression: Chest pain, Abdominal pain, Nausea and vomiting, Sepsis, Constipation Patient Disposition: Admitted As Inpatient
[2024-09-01 16:19] LABS: Immature Retic Fraction 32.8 % (2.3-13.4); RET ABN SCTR 1; Reticulocytes Absolute 0.232 X10*6/uL (0.026-0.095)
[2024-09-01 16:20] LABS: Retic HGB Equivalent 31.5 pg (30.0-35.0); Reticulocyte Percent 7.8 % (0.5-1.8)
[2024-09-01] MEDS: cefTRIAXone sodium 2 GM VIAL IVPUSH (16:34)
[2024-09-01] MEDS: Ketorolac Tromethamine 15 MG/ML VIAL IVPUSH (16:34)
[2024-09-01] MEDS: HYDROmorphone HCl 1 MG/ML SYRINGE IVPUSH ×3 (16:34→20:33)
[2024-09-01] MEDS: ondansetron HCL 4 MG/2 ML VIAL IVPUSH (16:35)
[2024-09-01] MEDS: Magnesium Sulfate/H2O 2 GM/50 ML PIGGYBACK IV (16:35)
[2024-09-01] MEDS: 0.9 % Sodium Chloride 2,068.38 ML 2068.38 ML IV (16:35)
[2024-09-01 16:46] LABS: Alkaline Phosphatase 72 U/L (39-117)
[2024-09-01] MEDS: iohexoL 350 MG/ML 100 ML INFUS..BTL IV (16:55)
[2024-09-01 16:56] LABS: Lactic Acid 1.2 mmol/L (0.5-2.0)
[2024-09-01] MEDS: Acetaminophen 325 MG TABLET 975 MG PO (17:16)
[2024-09-01 18:06] LABS: Troponin-I High Sensitivity 3.8 ng/L (<3.5-35.0)
--- OUTSIDE RECORDS SUMMARY | 2024-09-01 18:07 | XMS_ITS | Encounter Summary ---
Author Organization [employer] Address [address] [place] [address] Care Team Providers Care Aircraft Maintenance Engineer Name Role Phone Amanda Harrison Primary Care Provider [phone] Reason for Visit * Reason Onset Date Comments Med Refill 09/28/2023 Encounter Details Date Type Department Care Team (Late st Contact Info) Description 09/28/2023 Refill [facility] [address] [place], [place] [phone] Amanda Harrison ANP [address] [place] [address] Sickle cell disease without crisis (CMS/HCC) Social History Tobacco Use Types Packs/Day Years Used Date Smoking Tobacco: Never Passive Smoke Exposure: Never Smokeless Tobacco: Never Alcohol Use Standard Drinks/Week Comments Not Currently 0 (1 standard drink = 0.6 oz pur e alcohol) Housing Stability Answer Date Recorded What is your housing situation today? I do not have housing (Staying with others, in a hotel, in a mcfp, living outside on the street, on a beach, in a car, or in a park 04/02/[address] you li ve. Do you have problems with any of the following? None of the above 04/02/2023 Food Insecurity Answer Date Recorded Within the past 12 months, y ou worried that your food would run out before you got money to buy more: Never True 04/11/2023 Within the past 12 months,th e food you bought just didn't last and you didn't have enough money to get more: Never True Transportation Answer Date Recorded In the past 12 months, has l ack of transportation kept you from medical appts, meetings, work or from getting things needed for daily living? No 04/11/2023 Utilities Answer Date Recorded In the past 12 months, has t he electric, gas, oil or water company threatened to shut off services in your home? 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 Not on file Not on file documented as of this encounter Plan of Treatment Upcoming Encounters Date Type Department Care Team (Late st Contact Info) Description 09/08/2024 2:00 PM EDT Office Visit [facility] [address] [place] [phone] Amanda Harrison ANP [address] [place] [address] documented as of this encounter Visit Diagnoses Diagnosis Sickle cell disease without crisis (CMS/HCC) 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
--- OUTSIDE RECORDS SUMMARY | 2024-09-01 18:07 | XMS_ITS | Encounter Summary ---
Author Organization [employer] Address [address] [facility] [address] [place] [address] Care Team Providers Care Tongue Binder Name Role Phone Amanda Harrison Primary Care Provider [phone] Reason for Visit * Reason Onset Date Comments Med Refill 08/26/2023 Encounter Details Date Type Department Care Team (Late st Contact Info) Description 08/26/2023 Refill [facility] [address] [place], [place] [phone] Amanda Harrison ANP [address] [place] [address] Sickle cell disease without crisis (CMS/HCC) Social [...] with others, in a hotel, in a skilled nursing, living outside on the street, on a [...] Description 09/08/2024 2:00 PM EDT Office Visit [facility] [address] [place] [phone] Amanda Harrison ANP [address] [place] [address] documented as of this encounter Visit Diagnoses Diagnosis Sickle cell disease without crisis (CMS/HCC) 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
--- OUTSIDE RECORDS SUMMARY | 2024-09-01 18:07 | XMS_ITS | Continuity of Care Document ---
[facility] Organization [facility] Address [address] [place] [phone] Phone Care Team Providers Care Wheelman Name Role Phone Unavailable Unavailable Unavailable Advance Directives Directive Yes / No Effective Date File Name No Information Encounters Encounter Description Practice Location Reason(s) For Visit Diagnoses Date Provider Providers Copied on Encounter [facility], [address] [place] [address], [id number], tel:[phone] Advanced Care No Information No Information Family [...]
--- OUTSIDE RECORDS SUMMARY | 2024-09-01 18:07 | XMS_ITS | Encounter Summary ---
Author Organization [employer] Address [address] [place] [address] Care Team Providers Care Self Pay Collector Name Role Phone Amanda Harrison Primary Care Provider [phone] Reason for Visit * Reason Comments Pre-visit Planning SDOH Screening negat janelle and Tobacco screening negative Encounter Details Date Type Department Care Team ([facility] st Contact Info) Description 08/31/2024 Patient Outreach [facility] [address] [place] [address] Amanda Harrison ANP [address] [place] [address] Pre-visit Planning (SDOH Screening negative and Tobacco screening negative) Social History Tobacco Use Types Packs/Day Years Used Date Smoking Tobacco: Never Passive Smoke Exposure: Never Smokeless Tobacco: Never Alcohol Use Standard Drinks/Week Comments Not Currently 0 (1 standard drink = 0.6 oz pur e alcohol) Housing Stability Answer Date Recorded What is your housing situation today? I have areli hurd 08/31/[address] you li ve. Do you have problems with any of the following? None of the above 08/31/2024 Food Insecurity Answer Date Recorded Within the past 12 months, y ou worried that your food would run out before you got money to buy more: Never True 08/31/2024 Within the past 12 months,th e food you bought just didn't last and you didn't have enough money to get more: Never True 04/2025 Transportation Answer Date Recorded In the past 12 months, has l ack of transportation kept you from medical appts, meetings, work or from getting things needed for daily living? No 08/31/2024 Utilities Answer Date Recorded In the past 12 months, has t he electric, gas, oil or water company threatened to shut off services in your home? No 08/31/2024 Depression Answer Date Recorded Patient Health Questionnaire-2 Score 0 04/11/2023 Internet Access Answer Date Recorded Internet Access Q1 Yes 08/31/2024 Internet Access Q2 Not on file 08/31/2024 Sex and Gender Information Value Date Recorded Sex Assigned at Male 02/26/2023 10:30 AM EDT Legal Sex Male 11:13 AM EDT Gender Identity Male 02/26/2023 10:30 AM EDT Sexual Orientation Straight 02/26/2023 10 :30 AM EDT Occupation Industry Job Start Date Job End Date [employer] Not on file Not on file Not on file documented as of this encounter Progress Notes * Marely Howe - 08/31/2024 1:50 PM EDT [employer] placed successful outbound call to patient for pre-visit planning. Patient name and confirmed. Patient confirms appt date and time, and has transportation arrangements. Biggest concern for appointment at this time is no concerns. Patient advised to bring to appointment a photo id and insurance card. Appropriate screenings completed in anticipation of appointment. documented in this encounter Plan of Treatment Upcoming Encounters Date Type Department Care Team (Late st Contact Info) Description 09/08/2024 2:00 PM EDT Office Visit [facility] [address] [place] [address] Amanda Harrison ANP [address] [place] [address] documented as of this encounter Visit Diagnoses Not on filedocumented in this encounter Care Teams Self Pay Collector Relationship Specialty Start Date End Date Amanda Harrison ANP [address] [place] [address] PCP - General Family Medicine 04/11/23 documented as of this encounter
--- OUTSIDE RECORDS SUMMARY | 2024-09-01 18:07 | XMS_ITS | Clinical Summary ---
Author Organization [employer] Address [address] [facility] 7[address] [place] [address] Care Team Providers Care Male Model Name Role Phone Amanda Harrison Primary Care Provider [phone] Allergies No known active allergies Medications ibuprofen 800 MG tablet TAKE 1 TABLET ORALLY 3 TIMES A DAY NEEDED 2023 Active Sodium Fluoride (PreviDent 5000 Plus) 1.1 % cream Apply 1 mg to teeth 3 times daily. 1 g 3 09/15/2023 Active folic acid (Folvite) 1 MG tabletIndicatio ns:Sickle cell disease without crisis (CMS/HCC) TAKE 1 TABLET BY MOUTH EVERY DAY 90 tablet 3 11/05/2023 Active triamcinolone (Kenalog) 0.1 % creamIndication s:Rash APPLY TO THE AFFECTED AREA(S) TWICE DAILY IN THE MORNING AND AT BEDTIME NEEDED 30 g 2 07/08/2024 Active hydroxyurea (Hydrea) 500 MG capsuleIndicati ons:Sickle cell disease without crisis (CMS/HCC) TAKE 3 CAPSULES BY MOUTH AT THE SAME TIME EVERY MORNING 90 capsule 1 07/20/2024 Active Active Problems Problem Noted Date Diagnosed Date Cardiomyopathy 07/08/2023 Sickle cell disease without crisis 02/26/2023 Encounters Date Type Department Care Team Description 08/31/2024 Patient Outreach [facility] [address] [place] [address] [phone] Amanda Harrison ANP Pre-visit Planning (SDOH Screening negative and Tobacco screening negative) 07/20/2024 Refill [facility] [address] [place], [place] [phone] Amanda Harrison ANP Sickle cell disease without crisis (CMS/HCC) 07/08/2024 Telephone [facility] [address] [place], [place] [phone] Meron Villanueva, RN Record Request 07/08/2024 Refill [facility] [address] [place] [phone] Amanda Harrison ANP Rash 06/30/2024 5:20 PM EST Office Visit [facility] [address] [place] [phone] Alexa Gonzales NP Epigastric pain (Primary Dx) 06/30/2024 Telephone [facility] [address] [place] [phone] Alexa Gonzales NP Insurance 06/30/2024 Travel 06/29/2024 Telephone [facility] [address] [place] [phone] Amanda Harrison ANP Letter for School/Work from Last 3 Months Family History Medical History Relation Name Comments Sickle cell anemia Other Relation Name Status Comments Other Social History Tobacco Use Types Packs/Day Years Used Date Smoking Tobacco: Never Passive Smoke Exposure: Never Smokeless Tobacco: Never Tobacco Cessation:Counseling Given: Not Answered Alcohol Use Standard Drinks/Week Comments Not Currently [...] file Not on file Not on file Last Filed Vital Signs Vital Sign Reading Time Taken Comments Blood Pressure 126/73 06/30/2024 6:22 PM EST Pulse 86 06/30/2024 6:22 PM EST Temperature 36.7 ??C (98.1 ??F) 06/30/2024 6:22 PM ES T Respiratory Rate 16 06/30/2024 6:22 PM EST Oxygen Saturation 99% 06/30/2024 6:22 PM EST Inhaled Oxygen Concentration - - Weight 69.4 kg (153 lb) 06/30/2024 6:22 PM EST Height 167.6 cm (5' 6 ) 03/06/2024 11:39 AM EDT Body Mass Index 24.69 03/06/2024 11:39 AM EDT Plan of Treatment Upcoming Encounters Date Type Department Care Team (Late st Contact Info) Description 09/08/2024 2:00 PM EDT Office Visit [facility] [address] [place], [place] [phone] Amanda Harrison ANP [address] [place] [address] Health Maintenance Due Date Last Done Comments Dental Prophylaxis 2001 HIB Vaccines (1 of 1 - Risk 1-dose series) 05/07/2002 Meningococcal Vaccine (1 - Risk 2-dose series) 2003 Meningococcal B Vaccine (1 o f 4 - Increased Risk) 2011 Alcohol/Substance Use Screening 2013 Family Planning (PISQ) 02/05/2016 HPV Vaccines (1 - Male 3-dos e series) 02/05/2016 DTaP/Tdap/Td Vaccines (1 - Tdap) 02/05/2020 Hepatitis B Vaccines (1 of 3 - 19+ 3-dose series) 02/05/2020 Pneumococcal Vaccine: Pediatrics (0 to 5 Years) and At-Risk Patients (6 to 49) Years) (1 of 2 - PCV) 02/05/2020 COVID-19 Vaccine (1 - 2023-2 5 season) 2024 Influenza Vaccine (#1) 2024 Dental Oral Exam 03/18/2024 09/15/2023 Depression Screening 04/11/2024 04/11/2023, 04/11/2023 Dental X-Ray: Bitewings 09/15/2024 09/15/2023 Chlamydia and Gonorrhea Screening 11/04/2024 11/05/2023 Tobacco Screening 07/08/2025 07/08/2024 SDOH Screening 08/31/2025 08/31/2024 Dental X-Ray: Full Mouth 09/15/2026 09/15/2023 Zoster Vaccines (1 of 2) 2051 RSV Patients and Patients Aged 60 years or older (1 - 1-dose 75+ series) 02/05/2076 HIV Screening Completed 11/05/2023 Hepatitis C Screening Completed 11/05/2023 Hepatitis A Vaccines Aged Out No long er eligible based on patient's age to complete this topic IPV Vaccines Aged Out No longer eligi ble based on patient's age to complete this topic RSV under 20 months Aged Out No longe r eligible based on patient's age to complete this topic Rotavirus Vaccines Aged Out No longer eligible based on patient's age to complete this topic Procedures Procedure Name Priority Date/Time Associated Diagnosis Comments CHLAMYDIA/N. GONORRHOEAE RNA, TMA, UROGENITAL Routine 11/05/2023 2:51 PM EDT Possible exposure to STI HEPATITIS PANEL, GENERAL Routine 11/05/2023 2:49 PM EDT Possible exposure to STI HIV 1/2 ANTIGEN/ANTIBODY, FOURTH GENERATION W/RFL Routine 11/05/2023 2:49 PM EDT Possible exposure to STI INTRAORAL - COMPLETE SERIES OF RADIOGRAPHIC IMAGES Routine 09/15/2023 10:00 AM EDT Encounter for dental examination Dental caries Dental plaque Dental calculus COMPREHENSIVE ORAL EVALUATION - NEW OR ESTABLISHED PATIENT Routine 09/15/2023 10:00 AM EDT Encounter for dental examination Dental caries Dental plaque Dental calculus from Last 3 Months or Most Recently Relevant to Health Maintenance Results * Chlamydia/N. Gonorrhoeae RNA, TMA, Urogenitial (11/05/2023 2:51 PM EDT) CT PCR NOT DETECTED Not Detect. [facility] Comment:A not detected test result does not exclude the possibilityof infection because test results can be affected byimproper specimen collection, concurrent antibiotic therapy,or the number of organisms in the specimen which may bebelow the sensitivity of the test. As with many diagnostictests, results from the Xpert CT/NG assay should beinterpreted in conjunction with other laboratory andclinical data available to the clinician.Xpert CT/NG performance has not been evaluated in patientsless than 14 years of age. The assay should not be used forthe evaluationof suspected sexual abuse or for other medico-legalindications. Additional testing is recommended in anycircumstance when false positive or false negative resultscould lead to adverse medical, social or psychologicalconsequences. NG PCR NOT DETECTED Not Detect. [facility] Comment:A not detected test result does not exclude the possibilityof infection because test results can be affected byimproper specimen collection, concurrent antibiotic therapy,or the number of organisms in the specimen which may bebelow the sensitivity of the test. As with many diagnostictests, results from the Xpert CT/NG assay should beinterpreted in conjunction with other laboratory andclinical data available to the clinician.Xpert CT/NG performance has not been evaluated in patientsless than 14 years of age. The assay should not be used forthe evaluationof suspected sexual abuse or for other medico-legalindications. Additional testing is recommended in anycircumstance when false positive or false negative resultscould lead to adverse medical, social or psychologicalconsequences. Urine (Urine, Random) 11/05/2023 2:51 PM EDT 11/05/2023 7:25 PM EDT Narrative [facility] - 11/06/2023 1:58 AM EDT Urine [facility] MICROBIOLOGY - GENERAL ORDER JOSE Final Result [facility] [address] [place] [address] [phone] * Hepatitis A,B,C Profile (11/05/2023 2:49 PM EDT) Pathologist [facility] [place] Hepatitis A IgM Nonreactive Nonreactive [facility] Comment:IgM antibodies to PATEL V not detected; does not exclude earlyacute or recovered HAV infection. ~Hepatitis B Surface Antibody REACTIVE Nonreactive [facility] Comment:REACTIVE: > 11.99 mI U/mL Hepatitis B Core Antibody Nonreactive Nonreactive [facility] Hepatitis C Antibody Nonreactive Nonreactive [facility] Comment:Antibodies to HCV no t detected; does not exclude early acuteHCV infection. Hepatitis B Surface Ag Negative Negative [facility] Blood Venous blood specimen / Unknown 11/05/2023 2:49 PM EDT 11/05/2023 4:00 PM EDT [facility] LAB BLOOD ORDERABLES Final Resul t [facility] [address] [place] [address] [phone] * HIV-1/2 Antigen and Antibodies, Fourth Generation, with Reflexes (11/05/2023 2:49 PM EDT) Pathologist [facility] [place] HIV AB/AG Nonreactive Nonreactive [facility] Comment:HIV-1 p24 Ag and/or HIV-1/HIV-2 Ab not detected.A test result that is nonreactive does not exclude thepossibility of exposure to or infection with HIV-1 and/orHIV-2. Nonreactive results in this assay for individualswith prior exposure to HIV-1 and/or HIV-2 may be due toantigen and antibody levels that are below the limit ofdetection of this assay.The [employer] HIV Ag/Ab Combo assay result andsupplemental assay results should be interpreted inconjunction with the patient's clinical presentation,history and other laboratory results. If the results areinconsistent with clinical evidence, additional testing issuggested to confirm the result. Blood Venous blood specimen / Unknown 11/05/2023 2:49 PM EDT 11/05/2023 4:00 PM EDT [facility] BLOOD ORDERABLES Final Resul t [facility] [address] [place] [address] [phone] from Last 3 Months or Most Recently Relevant to Health Maintenance Insurance [facility] DIRECT [facility] MEDICAID STAND ADULT Care Teams Male Model Relationship Specialty Start Date End Date Amanda Harrison ANP [address] [place] [address] PCP - General Family Medicine 04/11/23
[2024-09-01 18:28] LABS: Influenza A PCR NEGATIVE (Negative); Influenza B PCR NEGATIVE (Negative); Resp Syncy Virus RNA Qual PCR NEGATIVE (Negative); SARS COV2 PCR INHOUSE NEGATIVE (Negative)
--- NOTE | 2024-09-01 19:58 | P.HPHOSP_ITS ---
History of Present Illness Date of Service: 09/01/24 Chief Complaint: chest pain/abd pain 24-year-old male with a past medical history of sickle cell disease presented to the hospital with a chief complaint of abdominal pain, chest pain started this morning. Patient reported that this morning he started developing abdominal pain, diffuse in nature, associated nausea and vomiting. Denies any diarrhea. Also developed chest pain. Denies any shortness of breath. Denies any cough or sputum production. Mentioned that his pain distribution is different than the current symptoms today. Denies any numbness tingling or focal weakness. Denies any urinary symptoms. Review of all other systems is negative except mentioned above ER course: Per ER team, patient reported having chest pain, EKG nonischemic, troponin negative, chest x-ray showed no acute cardiopulmonary process, patient is saturating well on room air. Also has mild diffuse abdominal tenderness, CT abdomen pelvis showed no acute intra-abdominal process except for constipation. Patient given Dilaudid with improvement in the pain. [facility] Social History Alcohol intake: current Alcohol intake frequency: holidays/special occasions only Smoked in Last 30 Days: No Use of substances other than those prescribed or required for medical reasons: Yes Substance Use Type: Marijuana Advance Directives: No Advance Directives Information Provided: Yes Do you have a plan to hurt others: No Plan Meds Allergies Allergy/AdvReac Type Severity Reaction Status Date / Time No Known Allergies Allergy Verified 09/01/24 15:13 Active Medications: Current Medications Acetaminophen (Acetaminophen 325 Mg Tablet) 650 mg PO Q6H PRN PRN Reason: Pain, Mild 1-3,fever,headache Albuterol/Ipratropium (Albuterol/Iprat 2.5/0.5mg 3 Ml Ampul.Neb) 3 ml INHALE Q4H PRN PRN Reason: Shortness of Breath/Wheezing Benzonatate (Benzonatate 100 Mg Capsule) 100 mg PO TID PRN PRN Reason: Cough Calcium Carbonate (Calcium Carbonate 750 Mg Tab.Chew) 750 mg PO Q4H PRN PRN Reason: Heartburn Docusate Sodium (Docusate Sodium 100 Mg Capsule) 100 mg PO BID MATILDE Enoxaparin Sodium (Enoxaparin Sodium 40 Mg/0.4 Ml Syringe) 40 mg SUBCUT Q24H MATILDE Hydromorphone HCl (Hydromorphone Hcl 0.5 Mg/0.5 Ml Syringe) 0.5 mg IVPUSH Q4H PRN; Protocol PRN Reason: Pain, Severe (Pain Scale 7-10) Lactated Ringer's (Lr) 1,000 mls @ 100 mls/hr IVCONT .Q10H MATILDE Magnesium Hydroxide (Milk Of Magnesia 30 Ml Oral.Susp) 30 ml PO DAILY PRN PRN Reason: Constipation Melatonin (Melatonin 3 Mg Tablet) 6 mg PO BEDTIME PRN PRN Reason: Insomnia Polyethylene Glycol (Polyethylene Glycol 3350 17 Gm Powd.Pack) 17 gm PO DAILY PRN PRN Reason: Constipation Senna (Sennosides 8.6 Mg Tablet) 17.2 mg PO BEDTIME MATILDE Sodium Chloride (0.9 % Sodium Chloride Flush 3 Ml Syringe) 3 ml IVFLUSH QSHIFT MATILDE Physical Exam 2 Vital Signs and Narrative: Vital Signs: Last Vital Signs Temp 98.6 F 09/01/24 18:36 Pulse 95 09/01/24 18:48 Resp 13 09/01/24 18:48 BP 123/56 L 09/01/24 18:48 Pulse Ox 95 09/01/24 18:48 O2 Del Method Room Air 09/01/24 18:48 BMI result Body Mass Index 24.5 Gen: Appears be in no acute distress HEENT: NCAT, Moist mucosa. Pulmonary: Vesicular breath sounds, fair air entry CVS: Normal S1-S2 Abdomen: BS+, Soft, mildly tender diffusely, no guarding no rigidity Extremities: Warm well perfused Neuro: Alert and awake. Results Labs 09/01/24 15:22 09/01/24 15:22 Labs: Laboratory Results - last 24 hr 09/01/24 09/01/24 15:22 16:34 MCV 90.8 MCH 34.1 H MCHC 37.5 H RDW 16.9 H Plt Count 627 H D MPV 9.3 L Immature Gran % (Auto) 1.4 H Neut % (Auto) 78.1 H Lymph % (Auto) 14.6 L [place] % (Auto) 5.5 Eos % (Auto) 0.2 Baso % (Auto) 0.2 Lymph # (Auto) 3.0 [place] # (Auto) 1.1 Eos # (Auto) 0.1 Baso # (Auto) 0.0 Abs Immat Gran (auto) 0.29 H Absolute Neuts (auto) 15.8 H Absolute Nucleated RBC 0.290 H Nucleated RBC % (auto) 1.4 H Absolute Retic 0.232 H Percent Retic 7.8 H Immature Retic Fraction 32.8 H Retic Hgb Equivalent 31.5 PT 14.5 H INR 1.2 H Anion Gap 13 Estim Creat Clear Calc 134.6 Estimated GFR > 60 Random Glucose 153 H Lactic Acid 1.2 Calcium 9.7 Magnesium 1.4 L* Total Bilirubin 1.7 H AST 57 H ALT 29 Alkaline Phosphatase 72 Total Protein 8.7 H Albumin 4.4 Influenza Type A (PCR) NEGATIVE Influenza Type B (PCR) NEGATIVE RSV RNA Qual (PCR) NEGATIVE SARS-CoV-2 RNA (RT-PCR) NEGATIVE Blood Type O Positive Antibody Screen NEGATIVE Imaging Radiologist's Impressions: Impressions Chest X-Ray 09/01/24 16:11 IMPRESSION: Mild prominence of the cardiac silhouette, likely magnification related to technique. Otherwise normal exam. Electronically signed by: Mesfin Buchanan MD 09/01/2024 04:43 PM EDT RP Assessment and Plan (1) Abdominal pain: Qualifiers: Abdominal location: upper abdomen, unspecified Qualified Code(s): R 10.10 - Upper abdominal pain, unspecified Status: Acute Plan 24-year-old male with a past medical history of sickle cell disease presented to the hospital with a chief complaint of abdominal pain, chest pain started this morning. Concern for sickle cell pain crisis. Admitted for further management. Chest pain/abdominal pain: Sickle cell pain crisis: Patient pain crisis distribution is different from current symptoms. EKG nonischemic, troponin negative, CT abdomen pelvis showed no acute findings except for constipation. Patient saturating well on room air. Less concern for acute chest syndrome. Plan -telemetry -Dilaudid p.r.n. -incentive spirometry -gentle IV fluids Constipation: Bowel regimen Fever: Unclear source. Patient received ceftriaxone in the ER. Follow up cultures. UA pending. Chest x-ray shows no pneumonia. Will continue ceftriaxone for now. DVT prophylaxis: Lovenox Code status: Full code Quality Stroke Does the patient have a stroke diagnosis?: No VTE Prior VTE?: No VTE Risk Level:: Medical - moderate - high VTE Device Contraindication: Patient Refused VTE Drug Contraindication: N/A - Med Ordered
[2024-09-01] MEDS: Docusate Sodium 100 MG CAPSULE PO (20:32)
[2024-09-01] MEDS: Milk of Magnesia 30 ML ORAL.SUSP PO (20:32)
[2024-09-01] MEDS: bisacodyL 5 MG TABLET.DR 10 MG PO (20:32)
[2024-09-01] MEDS: Enoxaparin Sodium 40 MG/0.4 ML SYRINGE SUBCUT (20:33)
[2024-09-01] MEDS: Sennosides 8.6 MG TABLET 17.2 MG PO (20:33)
[2024-09-01] MEDS: Acetaminophen 325 MG TABLET 650 MG PO (20:34)
[2024-09-01] MEDS: Lactated Ringers 1,000 ML 100 ML IVCONT (20:34)
[2024-09-01 20:53] LABS: Appearance Urine Clear; Color Urine Yellow; Glucose Urine UA Negative (Negative); Leukocyte Esterase Urine Negative (Negative); Nitrite Urine Negative (Negative); PH 6.5 (5.0-9.0); Specific Gravity - Urine >= 1.030 (1.005-1.025); Urine Blood Negative (Negative); Urine Ketones Negative (Negative); Urine Protein Negative (Neg-Trace)
--- NOTE | 2024-09-01 21:14 | PHA.MEDREC ---
Addendum entered by Teto Mckinney formerly [facility] 09/02/24 09:15: MED REC CHECKED BY [facility] Addendum entered by Nora Hammonds 09/02/24 09:10: Called [facility] pharmacy and patient hasn't picked up Hydroxyurea 500 mg since December 2023. Addendum entered by Nora Hammonds 09/02/24 09:07: called [facility] pharmacy to confirm Hydroxyurea 500 mg . [facility] states that patient hasn't filled since February 2024. [facility] confirmed there was a script called in but patient never picked up. Original Note: Pharmacy Consult ? Medication Reconciliation Pharmacy has completed the medication reconciliation. Spoke with patient and he stated he is taking 3 Hydroxyurea 500mg tabs every morning for sickle cell control and states he is filling it at [facility]; will have AM team follow up with [facility] to confirm medication, facility closed at 1800. He confirmed he took that yesterday.
[2024-09-02] MEDS: HYDROmorphone HCl 0.5 MG/0.5 ML SYRINGE 1 MG IVPUSH ×3 (01:44→08:22)
[2024-09-02 03:42] VITALS: BP 112/52; PULSE 62; RESP 20; TEMP 36.8; O2SAT 90
[2024-09-02 06:25] LABS: Hematocrit 24.9 % (42.0-52.0); Hemoglobin 9.3 g/dl (14.0-18.0); Mean Corpuscular HGB Conc 37.3 g/dl (31.0-36.0); Mean Corpuscular Hemoglobin 33.9 pg (27.0-33.0); Mean Corpuscular Volume 90.9 fL (80.0-98.0); Mean Platelet Volume 9.3 fL (9.4-12.4); Platelet Count 511 X10*3/uL (160-400); Red Blood Count 2.74 X10*6/uL (4.60-5.80); Red Cell Distribution Width 17.7 % (11.0-16.0)
[2024-09-02 06:28] LABS: NRBC Pct Auto 2.2 /100WBC (0.0-0.2)
[2024-09-02 07:09] LABS: Alanine Aminotransferase 25 U/L (0-40); Albumin Level 3.9 g/dL (3.5-5.0); Alkaline Phosphatase 63 U/L (39-117); Anion Gap 13 (12-20); Aspartate Amino Transferase 56 U/L (5-37); Bilirubin Total 1.7 mg/dL (0.0-1.0); Blood Urea Nitrogen 6 mg/dL (9-16); Calcium 9.1 mg/dL (8.4-10.2); Carbon Dioxide 21 mmol/L (22-29); Chloride 109 mmol/L (96-108); Creatinine Clr Calc Pharmacy 161.9; Estimated Glomerular Filt Rate > 60; Glucose Random 97 mg/dL (60-115); Potassium 4.8 mmol/L (3.3-5.1); Sodium 138 mmol/L (135-145); Total Protein 7.8 g/dL (6.5-8.0)
[2024-09-02 07:10] VITALS: BP 122/61; PULSE 61; RESP 18; TEMP 37.3; O2SAT 93
[2024-09-02 07:13] LABS: Atypical Lymph Absolute Manual 0.2 x10*3/uL; Atypical Lymphs Percent Manual 1 % (0-6); Eosinophils Absolute Manual 0.2 X10*3/uL (0.0-0.4); Eosinophils Percent Manual 1 % (0-4); Large Platelet PRESENT; Lymphocytes Absolute Manual 2.1 X10*3/uL (1.2-4.9); Lymphocytes Percent Manual 14 % (20-40); Macrocytosis 1+ (5-14) /OIF; Metamyelocytes Absolute 0.2 X10*3/uL; Metamyelocytes Percent 1 %; Monocytes Absolute Manual 0.9 X10*3/uL (0.1-1.2); Monocytes Percent Manual 6 % (2-11); Neutrophils Percent Manual 77 % (45-73); Nucleated Red Blood Cells 3 /100WBC (0-0); Ovalocytes 1+ (5-14) /OIF; Platelet Estimate SLIGHTLY INCREASED (NORMAL); Platelet Morphology Comment NOTED; RBC Morphology NOTED
[2024-09-02 07:14] LABS: Howell Jolly Bodies PRESENT; Polychromasia 2+ (3-5) /OIF; Sickle Cells 2+ (3-5) /OIF; Smudge Cells PRESENT; Target Cells 1+ (5-14) /OIF; Toxic Vacuolation PRESENT
[2024-09-02 07:23] LABS: Band Neutrophils Percent 0 % (3-5); Neutrophils Absolute Manual 11.6 X10*3/uL (2.0-8.3)
[2024-09-02] MEDS: Lactated Ringers 1,000 ML 100 ML IVCONT (08:17)
[2024-09-02] MEDS: polyethylene glycoL 3350 17 GM POWD.PACK PO (08:24)
[2024-09-02] MEDS: Acetaminophen 325 MG TABLET 650 MG PO ×2 (08:25→14:43)
[2024-09-02] MEDS: 0.9 % Sodium Chloride Flush 3 ML SYRINGE IVFLUSH ×3 (08:28→19:57)
[2024-09-02] MEDS: ondansetron HCL 4 MG/2 ML VIAL IVPUSH (08:28)
--- NOTE | 2024-09-02 09:44 | MHC.CM.PN ---
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 Harrison. He is able to arrange transport home at [place]. DCP; home, self care. CM to follow for DC needs.
[2024-09-02] MEDS: Folic Acid 1 MG TABLET PO (10:20)
[2024-09-02] MEDS: Hydroxyurea 500 MG CAPSULE 1500 MG PO (10:20)
[2024-09-02] MEDS: Docusate Sodium 100 MG CAPSULE PO ×2 (10:21→19:57)
[2024-09-02] MEDS: Lactulose 20 GM/30 ML SOLUTION PO (10:21)
--- NOTE | 2024-09-02 10:39 | HO.PM.IMPN ---
Subjective Subjective Date of Service: 09/02/24 Interval History: Complaining of bilateral lower chest pain constant pain, started yesterday a.m. took marijuana the night before, denies associated fever chills, no cough no sputum production, no urinary symptoms, presentation atypical for his usual crisis flare, no shortness of breath with deep breathing, no PND, no orthopnea. Review of Systems All other system reviewed and are negative. Physical Exam Vital Signs: Vital Signs: Last Vital Signs Temp 99.2 F 09/02/24 07:10 Pulse 61 09/02/24 07:10 Resp 18 09/02/24 07:10 BP 122/61 09/02/24 07:10 Pulse Ox 93 09/02/24 07:10 O2 Del Method Room Air 09/02/24 07:10 BMI result Body Mass Index 24.5 Const: Other: General in no acute distress. Neck no JVD. Tenderness to palpation bilateral lower ribs CVS regular rate rhythm, Respiratory lungs clear to auscultation, no respiratory distress, no wheeze, no rhonchi. Gastrointestinal abdomen soft, non tender, bowel sounds audible, no guarding , no rigidity. Extremities no edema. Neuro non focal Skin no rash Objective Data Active Medications Acetaminophen (Acetaminophen 325 Mg Tablet) 650 mg PO Q6H PRN PRN Reason: Pain, Mild 1-3,fever,headache Last Admin: 09/02/24 08:25 Dose: 650 mg Documented By: JACK Albuterol/Ipratropium (Albuterol/Iprat 2.5/0.5mg 3 Ml Ampul.Neb) 3 ml INHALE Q4H PRN PRN Reason: Shortness of Breath/Wheezing Benzonatate (Benzonatate 100 Mg Capsule) 100 mg PO TID PRN PRN Reason: Cough Calcium Carbonate (Calcium Carbonate 750 Mg Tab.Chew) 750 mg PO Q4H PRN PRN Reason: Heartburn Ceftriaxone Sodium (Ceftriaxone Sodium 1 Gm Vial) 1 gm IVPUSH Q24H [facility] Docusate Sodium (Docusate Sodium 100 Mg Capsule) 100 mg PO BID [facility] Last Admin: 09/02/24 10:21 Dose: 100 mg Documented By: JACK Enoxaparin Sodium (Enoxaparin Sodium 40 Mg/0.4 Ml Syringe) 40 mg SUBCUT Q24H [facility] Last Admin: 09/01/24 20:33 Dose: 40 mg Documented By: EVANS Folic Acid (Folic Acid 1 Mg Tablet) 1 mg PO DAILY [facility] Last Admin: 09/02/24 10:20 Dose: 1 mg Documented By: JACK Hydromorphone HCl (Hydromorphone Hcl 0.5 Mg/0.5 Ml Syringe) 0.25 mg IVPUSH Q3H PRN; Protocol PRN Reason: Pain, Severe (Pain Scale 7-10) Hydroxyurea (Hydroxyurea 500 Mg Capsule) 1,500 mg PO DAILY [facility] Last Admin: 09/02/24 10:20 Dose: 1,500 mg Documented By: JACK Lactated Ringer's (Lr) 1,000 mls @ 150 mls/hr IVCONT .Q6H40M [facility] Last Infusion: 09/02/24 10:01 Dose: 150 mls/hr Documented By: JACK Magnesium Hydroxide (Milk Of Magnesia 30 Ml Oral.Susp) 30 ml PO DAILY PRN PRN Reason: Constipation Melatonin (Melatonin 3 Mg Tablet) 6 mg PO BEDTIME PRN PRN Reason: Insomnia Ondansetron HCl (Ondansetron Hcl 4 Mg/2 Ml Vial) 4 mg IVPUSH Q6H PRN PRN Reason: Nausea and Vomiting Last Admin: 09/02/24 08:28 Dose: 4 mg Documented By: JACK Polyethylene Glycol (Polyethylene Glycol 3350 17 Gm Powd.Pack) 17 gm PO DAILY PRN PRN Reason: Constipation Last Admin: 09/02/24 08:24 Dose: 17 gm Documented By: JACK Senna (Sennosides 8.6 Mg Tablet) 17.2 mg PO BEDTIME [facility] Last Admin: 09/01/24 20:33 Dose: 17.2 mg Documented By: EVANS Sodium Chloride (0.9 % Sodium Chloride Flush 3 Ml Syringe) 3 ml IVFLUSH QSHIFT [facility] Last Admin: 09/02/24 08:28 Dose: 3 ml Documented By: JACK Labs 09/02/24 06:14 09/02/24 06:14 Labs: Laboratory Results - last 24 hr 09/01/24 09/01/24 09/01/24 15:22 16:34 20:43 MCV 90.8 MCH 34.1 H MCHC 37.5 H RDW 16.9 H Plt Count 627 H D MPV 9.3 L Immature Gran % (Auto) 1.4 H Neut % (Auto) 78.1 H Lymph % (Auto) 14.6 L [place] % (Auto) 5.5 Eos % (Auto) 0.2 Baso % (Auto) 0.2 Lymph # (Auto) 3.0 [place] # (Auto) 1.1 Eos # (Auto) 0.1 Baso # (Auto) 0.0 Abs Immat Gran (auto) 0.29 H Absolute Neuts (auto) 15.8 H Absolute Nucleated RBC 0.290 H Nucleated RBC % (auto) 1.4 H Neutrophils % (Manual) Band Neutrophils % Lymphocytes % (Manual) Atypical Lymphs % (Man) Monocytes % (Manual) Eosinophils % (Manual) Metamyelocytes % Abs Neuts (Manual) Lymphocytes # (Manual) Atyp Lymphs # (Manual) Monocytes # (Manual) Eosinophils # (Manual) Metamyelocytes # Nucleated RBCs Smudge Cells Toxic Vacuolation Platelet Estimate Large Platelets Plt Morphology Comment RBC Morphology Polychromasia Macrocytosis Sickle Cells Target Cells Ovalocytes [place] Bodies Smear Path Review SEE NOTE Absolute Retic 0.232 H Percent Retic 7.8 H Immature Retic Fraction 32.8 H Retic Hgb Equivalent 31.5 PT 14.5 H INR 1.2 H Anion Gap 13 Estim Creat Clear Calc 134.6 Estimated GFR > 60 Random Glucose 153 H Lactic Acid 1.2 Calcium 9.7 Magnesium 1.4 L* Total Bilirubin 1.7 H AST 57 H ALT 29 Alkaline Phosphatase 72 Total Protein 8.7 H Albumin 4.4 Urine Color Yellow Urine Appearance Clear Urine pH 6.5 Ur Specific [place] >= 1.030 H Urine Protein Negative Urine Glucose (UA) Negative Urine Ketones Negative Urine Blood Negative Urine Nitrite Negative Ur Leukocyte Esterase Negative Influenza Type A (PCR) NEGATIVE Influenza Type B (PCR) NEGATIVE RSV RNA Qual (PCR) NEGATIVE SARS-CoV-2 RNA (RT-PCR) NEGATIVE Blood Type O Positive Antibody Screen NEGATIVE 09/02/24 06:14 MCV 90.9 MCH 33.9 H MCHC 37.3 H RDW 17.7 H Plt Count 511 H MPV 9.3 L Immature Gran % (Auto) Cancelled Neut % (Auto) Cancelled Lymph % (Auto) Cancelled [place] % (Auto) Cancelled Eos % (Auto) Cancelled Baso % (Auto) Cancelled Lymph # (Auto) Cancelled [place] # (Auto) Cancelled Eos # (Auto) Cancelled Baso # (Auto) Cancelled Abs Immat Gran (auto) Cancelled Absolute Neuts (auto) Cancelled Absolute Nucleated RBC 0.330 H Nucleated RBC % (auto) 2.2 H Neutrophils % (Manual) 77 H Band Neutrophils % 0 L Lymphocytes % (Manual) 14 L Atypical Lymphs % (Man) 1 Monocytes % (Manual) 6 Eosinophils % (Manual) 1 Metamyelocytes % 1 Abs Neuts (Manual) 11.6 H Lymphocytes # (Manual) 2.1 Atyp Lymphs # (Manual) 0.2 Monocytes # (Manual) 0.9 Eosinophils # (Manual) 0.2 Metamyelocytes # 0.2 Nucleated RBCs 3 H Smudge Cells PRESENT Toxic Vacuolation PRESENT Platelet Estimate SLIGHTLY INCREASED Large Platelets PRESENT Plt Morphology Comment NOTED RBC Morphology NOTED Polychromasia 2+ (3-5) Macrocytosis 1+ (5-14) Sickle Cells 2+ (3-5) Target Cells 1+ (5-14) Ovalocytes 1+ (5-14) [place] Bodies PRESENT Smear Path Review Absolute Retic Percent Retic Immature Retic Fraction Retic Hgb Equivalent PT INR Anion Gap 13 Estim Creat Clear Calc 161.9 Estimated GFR > 60 Random Glucose 97 Lactic Acid Calcium 9.1 D Magnesium Total Bilirubin 1.7 H AST 56 H ALT 25 Alkaline Phosphatase 63 Total Protein 7.8 Albumin 3.9 Urine Color Urine Appearance Urine pH Ur Specific [place] Urine Protein Urine Glucose (UA) Urine Ketones Urine Blood Urine Nitrite Ur Leukocyte Esterase Influenza Type A (PCR) Influenza Type B (PCR) RSV RNA Qual (PCR) SARS-CoV-2 RNA (RT-PCR) Blood Type Antibody Screen Assessment and Plan (1) Constipation: Status: Acute (2) Chest pain: Status: Acute (3) Sickle cell crisis: Status: Acute Plan 24-year-old male with a past medical history of sickle cell disease presented to the hospital with a chief complaint of abdominal pain, chest pain started this morning. Concern for sickle cell pain crisis. Admitted for further management. Acute chest pain likely flare of sickle cell crisis Persistent pain, vomited x1 this morning, no further nausea, low-grade fever on arrival, no recurrent fevers No acute infection UA unremarkable chest x-ray showed no pneumonia. EKG nonischemic, troponin negative, CT abdomen pelvis showed no acute findings except for constipation. saturating well on room air. Less concern for acute chest syndrome, since normal chest x-ray, no tachypnea, no cough or wheeze. Continue IV Dilaudid p.r.n. dose reduced, continue IV fluids Continue hydroxyurea/folic acid DC IV ceftriaxone. WBC trending down follow CBC/BMP. Mild acute hypoxia likely due to shallow breaths with pain, O2 support as needed. Constipation: Bowel regimen/encourage by mouth fluids/lactulose 20 g x 1 DVT prophylaxis: Lovenox Code status: Full code Quality Stroke Does the patient have a stroke diagnosis?: No VTE Prior VTE?: No VTE Risk Level:: Medical - moderate - high VTE Device Contraindication: Patient Refused VTE Drug Contraindication: N/A - Med Ordered
[2024-09-02 10:42] LABS: Magnesium 1.9 mg/dL (1.6-2.6)
[2024-09-02 11:06] VITALS: BP 122/64; PULSE 74; RESP 18; TEMP 37.3; O2SAT 93
[2024-09-02] MEDS: HYDROmorphone HCl 0.5 MG/0.5 ML SYRINGE 0.25 MG IVPUSH (12:08)
[2024-09-02] MEDS: HYDROmorphone HCl 0.5 MG/0.5 ML SYRINGE IVPUSH ×4 (14:44→22:58)
[2024-09-02] MEDS: cefTRIAXone sodium 1 GM VIAL IVPUSH (14:44)
[2024-09-02] MEDS: Lactated Ringers 1,000 ML 150 ML IVCONT ×2 (14:47→22:58)
[2024-09-02 16:00] VITALS: BP 131/65; PULSE 73; RESP 20; TEMP 37.7; O2SAT 98
[2024-09-02 18:49] VITALS: BP 134/60; PULSE 87; RESP 20; TEMP 36.7; O2SAT 94
[2024-09-02] MEDS: Enoxaparin Sodium 40 MG/0.4 ML SYRINGE SUBCUT (19:57)
[2024-09-02] MEDS: Sennosides 8.6 MG TABLET 17.2 MG PO (19:57)
[2024-09-03] VITALS: BP 134/63; PULSE 75; RESP 18; TEMP 37.4; O2SAT 94
[2024-09-03] MEDS: Acetaminophen 325 MG TABLET 650 MG PO (00:06)
[2024-09-03] MEDS: HYDROmorphone HCl 0.5 MG/0.5 ML SYRINGE IVPUSH ×2 (02:08→08:19)
[2024-09-03 03:08] VITALS: BP 121/69; PULSE 78; RESP 18; TEMP 37.4; O2SAT 93
[2024-09-03 05:00] VITALS: TEMP 37.1
[2024-09-03 08:04] VITALS: BP 140/65; PULSE 92; RESP 17; TEMP 37.2; O2SAT 94
[2024-09-03] MEDS: Folic Acid 1 MG TABLET PO (08:18)
[2024-09-03] MEDS: Hydroxyurea 500 MG CAPSULE 1500 MG PO (08:18)
[2024-09-03] MEDS: Docusate Sodium 100 MG CAPSULE PO (08:19)
[2024-09-03] MEDS: Lactated Ringers 1,000 ML 150 ML IVCONT (08:22)
[2024-09-03 09:15] LABS: Hematocrit 25.5 % (42.0-52.0); Hemoglobin 9.3 g/dl (14.0-18.0); Mean Corpuscular HGB Conc 36.5 g/dl (31.0-36.0); Mean Corpuscular Hemoglobin 33.5 pg (27.0-33.0); Mean Corpuscular Volume 91.7 fL (80.0-98.0); Mean Platelet Volume 9.9 fL (9.4-12.4); Platelet Count 517 X10*3/uL (160-400); Red Blood Count 2.78 X10*6/uL (4.60-5.80); Red Cell Distribution Width 16.6 % (11.0-16.0); White Blood Count 14.2 X10*3/uL (4.8-10.8)
[2024-09-03 09:23] LABS: NRBC Pct Auto 2.9 /100WBC (0.0-0.2)
[2024-09-03 09:26] LABS: Anion Gap 12 (12-20); Blood Urea Nitrogen 7 mg/dL (9-16); Calcium 9.3 mg/dL (8.4-10.2); Carbon Dioxide 26 mmol/L (22-29); Chloride 102 mmol/L (96-108); Creatinine Clr Calc Pharmacy 175.7; Estimated Glomerular Filt Rate > 60; Glucose Random 110 mg/dL (60-115); Potassium 4.4 mmol/L (3.3-5.1); Sodium 136 mmol/L (135-145)
[2024-09-03 09:27] LABS: Anion Gap 12 (12-20); Blood Urea Nitrogen 5 mg/dL (9-16); Calcium 9.4 mg/dL (8.4-10.2); Carbon Dioxide 26 mmol/L (22-29); Chloride 102 mmol/L (96-108); Creatinine Clr Calc Pharmacy 164.5; Estimated Glomerular Filt Rate > 60; Glucose Random 112 mg/dL (60-115); Potassium 4.2 mmol/L (3.3-5.1); Sodium 136 mmol/L (135-145)
--- NOTE | 2024-09-03 10:34 | PM.DS ---
DS: Providers Provider Date of Service: 09/03/24 Date of admission: 09/01/24 19:54 Date of discharge: 09/03/24 Primary care physician: Amanda Harrison NP DS: Diagnosis Discharge Diagnosis (1) Constipation: Status: Acute (2) Chest pain: Status: Acute (3) Sickle cell crisis: Status: Acute DS: Summary Hospital Course Hospital Course: History of presenting illness Date of Service: 09/01/24 Chief Complaint: chest pain/abd pain 24-year-old male with a past medical history of sickle cell disease presented to the hospital with a chief complaint of abdominal pain, chest pain started this morning. Patient reported that this morning he started developing abdominal pain, diffuse in nature, associated nausea and vomiting. Denies any diarrhea. Also developed chest pain. Denies any shortness of breath. Denies any cough or sputum production. Mentioned that his pain distribution is different than the current symptoms today. Denies any numbness tingling or focal weakness. Denies any urinary symptoms. Review of all other systems is negative except mentioned above ER course: Per ER team, patient reported having chest pain, EKG nonischemic, troponin negative, chest x-ray showed no acute cardiopulmonary process, patient is saturating well on room air. Also has mild diffuse abdominal tenderness, CT abdomen pelvis showed no acute intra-abdominal process except for constipation. Patient given Dilaudid with improvement in the pain. Hospital course: 24-year-old male with a past medical history of sickle cell disease presented to the hospital with a chief complaint of abdominal pain, nausea and vomiting and bilateral anterior chest pain started this morning, likely multifactorial sickle cell pain crisis, question gastritis ,question due to constipation. Admitted for further management. Acute chest pain likely flare of sickle cell crisis versus gastroenteritis, patient treated with IV fluid, IV analgesics, UA and chest x-ray unremarkable,EKG nonischemic, troponin negative, CT abdomen pelvis showed no acute findings except for constipation, Less concern for acute chest syndrome, since normal chest x-ray, no tachypnea, no cough or wheeze, patient's symptoms improved with no recurrent nausea, vomiting , abdominal pain resolved, anterior chest wall pain improved, CBC and BMP stable, therefore being discharged home with recommendation to drink fluids avoid constipation continue hydroxyurea and folic acid and have close outpatient follow-up with PCP. Patient noted to have multiple visits to [place] [facility] for similar symptoms recommend to avoid use of marijuana and follow up with primary care physician to rule out gastritis Mild acute hypoxia likely due to shallow breaths with pain, resolved Constipation: Recommend high-fiber diet and fluids. Time Attestation Discharge Coordination Time (in mins): 40 Quality: Safe Use of Opioids Does Pt have an Active Cancer Diagnosis on the Problem List?: No Quality: Stroke Does the patient have a stroke diagnosis?: No Physical Exam Vital Signs: Vital Signs: Last Vital Signs Temp 99.0 F 09/03/24 08:04 Pulse 92 09/03/24 08:04 Resp 17 09/03/24 08:04 BP 140/65 H 09/03/24 08:04 Pulse Ox 94 09/03/24 08:04 O2 Del Method Room Air 09/03/24 08:04 BMI result Body Mass Index 24.5 Const: Other: General in no acute distress. Neck no JVD. CVS regular rate rhythm, Respiratory lungs clear to auscultation, no respiratory distress, no wheeze, no rhonchi. Gastrointestinal abdomen soft, non tender, bowel sounds audible, no guarding , no rigidity. Extremities no edema. Neuro non focal Skin no rash DS: Data Data Completed and Pending Labs on day of discharge: Laboratory Results - last 24 hr 09/02/24 09/03/24 09/03/24 06:14 08:18 08:18 WBC Cancelled 14.2 H RBC Cancelled Hgb Hct MCV MCH MCHC RDW Plt Count MPV Absolute Nucleated RBC Nucleated RBC % (auto) Sodium Potassium Chloride Carbon Dioxide Anion Gap BUN Creatinine Estim Creat Clear Calc Estimated GFR Random Glucose Calcium Magnesium 1.9 09/03/24 09/03/24 09/03/24 08:18 08:18 08:18 WBC RBC 2.78 L Hgb Cancelled 9.3 L Hct Cancelled 25.5 L MCV Cancelled MCH MCHC RDW Plt Count MPV Absolute Nucleated RBC Nucleated RBC % (auto) Sodium Potassium Chloride Carbon Dioxide Anion Gap BUN Creatinine Estim Creat Clear Calc Estimated GFR Random Glucose Calcium Magnesium 09/03/24 09/03/24 09/03/24 08:18 08:18 08:18 WBC RBC Hgb Hct MCV 91.7 MCH Cancelled 33.5 H MCHC Cancelled 36.5 H RDW Cancelled Plt Count MPV Absolute Nucleated RBC Nucleated RBC % (auto) Sodium Potassium Chloride Carbon Dioxide Anion Gap BUN Creatinine Estim Creat Clear Calc Estimated GFR Random Glucose Calcium Magnesium 09/03/24 09/03/24 09/03/24 08:18 08:18 08:18 WBC RBC Hgb Hct MCV MCH MCHC RDW 16.6 H Plt Count Cancelled 517 H MPV Cancelled 9.9 Absolute Nucleated RBC Cancelled Nucleated RBC % (auto) Sodium Potassium Chloride Carbon Dioxide Anion Gap BUN Creatinine Estim Creat Clear Calc Estimated GFR Random Glucose Calcium Magnesium 09/03/24 09/03/24 09/03/24 08:18 08:18 08:18 WBC RBC Hgb Hct MCV MCH MCHC RDW Plt Count MPV Absolute Nucleated RBC 0.410 H Nucleated RBC % (auto) Cancelled 2.9 H Sodium 136 136 Potassium 4.2 Chloride Carbon Dioxide Anion Gap BUN Creatinine Estim Creat Clear Calc Estimated GFR Random Glucose Calcium Magnesium 09/03/24 09/03/24 09/03/24 08:18 08:18 08:18 WBC RBC Hgb Hct MCV MCH MCHC RDW Plt Count MPV Absolute Nucleated RBC Nucleated RBC % (auto) Sodium Potassium 4.4 Chloride 102 102 Carbon Dioxide 26 26 Anion Gap 12 BUN Creatinine Estim Creat Clear Calc Estimated GFR Random Glucose Calcium Magnesium 09/03/24 09/03/24 09/03/24 08:18 08:18 08:18 WBC RBC Hgb Hct MCV MCH MCHC RDW Plt Count MPV Absolute Nucleated RBC Nucleated RBC % (auto) Sodium Potassium Chloride Carbon Dioxide Anion Gap 12 BUN 5 L 7 L Creatinine 0.63 0.59 Estim Creat Clear Calc 164.5 Estimated GFR Random Glucose Calcium Magnesium 09/03/24 09/03/24 09/03/24 08:18 08:18 08:18 WBC RBC Hgb Hct MCV MCH MCHC RDW Plt Count MPV Absolute Nucleated RBC Nucleated RBC % (auto) Sodium Potassium Chloride Carbon Dioxide Anion Gap BUN Creatinine Estim Creat Clear Calc 175.7 Estimated GFR > 60 > 60 Random Glucose 112 110 Calcium 9.4 Magnesium 09/03/24 08:18 WBC RBC Hgb Hct MCV MCH MCHC RDW Plt Count MPV Absolute Nucleated RBC Nucleated RBC % (auto) Sodium Potassium Chloride Carbon Dioxide Anion Gap BUN Creatinine Estim Creat Clear Calc Estimated GFR Random Glucose Calcium 9.3 Magnesium Preliminary micro results at discharge 09/01/24 16:33 Blood Culture - Preliminary Blood - Venous No growth after 24 hours. 09/01/24 16:33 Blood Culture - Preliminary Blood - Venous No growth after 24 hours. Discharge Plan Discharge Anticipated Discharge Date/Time: 09/03/24 10:29 Patient Disposition: Home, Self-Care Discharge Diagnosis: Acute flare of sickle cell disease Referrals: Amanda Harrison, [facility] [Primary Care Provider] - 1 Week Discharge Medications: Continued hydroxyurea 500 mg capsule 1,500 mg PO DAILY folic acid 1 mg tablet 1 mg DAILY Discharge Orders: Discharge Order (Routine); Ordered 09/03/24 Ordered By: Lorenza Ugalde Diet: Advance to usual diet Activity on Discharge: As tolerated Stand Alone Forms: Patient Portal Discharge page Print Language: [place] Care Plan Goals: Chest pain nausea, vomiting likely multifactorial due to sickle cell flare, versus gastritis, versus marijuana induced cyclic vomiting, nausea ,vomiting resolved, mild lower anterior chest wall pain take Tylenol, Drink fluids, continue hydroxyurea, avoid marijuana Take high-fiber diet and avoid constipation Health Concerns: Sickle cell disease continue home medication. Plan of Treatment: Outpatient follow-up with primary care provider Assessment: As above
--- NOTE | 2024-09-03 10:47 | MHC.CM.PN ---
PATIENT IS DC TODAY WITH NO SERVICE NEEDS INDICATED. RN AWARE OF PLAN.
--- NOTE | 2024-09-03 11:45 | PC.NURSE ---
per Md pt can return to work Friday
== END 2024-09-03 12:01 | disposition home or self-care (01) | DRG 662 ==
LOC: HO.ED 19:41 → HO.EDOVER 19:59 → HO.IMC 20:46
PROVIDERS: Physician Assistant; Physician Assistant Medical; Admitting Provider Hospitalist; Emergency Provider Emergency Medicine Emergency Medical Services; PCP Nurse Practitioner Primary Care; Visit Provider Hospitalist
DX: D57.00 Hb-SS disease with crisis, unspecified (principal); R09.02 Hypoxemia; K52.9 Noninfective gastroenteritis and colitis, unspecified; K59.00 Constipation, unspecified; Z20.822 Contact with and (suspected) exposure to COVID-19
CPT/HCPCS: 0241U; 36415; 71045; 74177; 80048; 80053; 81003; 83605; 83735; 84484; 85007; 85025; 85027; 85045; 85610; 86850; 86900; 86901; 87040; 93005; 99285; J0696; J1171; J1650; J1885; J2405; J3475; J7120; Q9967

== ENCOUNTER → 2024-09-01 15:14 | Outpatient (BNV) | payer OTHER, MEDICAID, SELFPAY | PROVIDERS: Emergency Provider Emergency Medicine Emergency Medical Services; Visit Provider Internal Medicine | DX: R10.9 Unspecified abdominal pain (principal) | CPT/HCPCS: 93010 ==

== ENCOUNTER → 2024-09-01 16:11 | Outpatient (BNV) | payer OTHER, MEDICAID, SELFPAY | PROVIDERS: Emergency Provider Emergency Medicine Emergency Medical Services; Visit Provider Radiology Diagnostic Radiology | DX: K56.41 Fecal impaction (principal); R07.9 Chest pain, unspecified | CPT/HCPCS: 71045; 74177 ==

== ENCOUNTER → 2024-09-01 19:54 | Outpatient (BNV) | payer MEDICAID, SELFPAY | PROVIDERS: Admitting Provider Hospitalist; Emergency Provider Emergency Medicine Emergency Medical Services; Visit Provider Hospitalist | DX: K59.00 Constipation, unspecified (principal); R07.9 Chest pain, unspecified; D57.00 Hb-SS disease with crisis, unspecified | CPT/HCPCS: 99223; 99233; 99239 ==

== ENCOUNTER 2025-01-05 10:56 | Outpatient (REF) | payer MEDICAID, SELFPAY ==
--- OUTSIDE RECORDS SUMMARY | 2020-09-07 06:44 | XMS_ITS | Continuity of Care Document ---
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
--- OUTSIDE RECORDS SUMMARY | 2025-01-05 10:20 | XMS_ITS | Encounter Summary ---
Author Organization [employer] Address [address] [place] [address] Care Team Providers Care Collar Band Creaser Name Role Phone Amanda Harrison Primary Care Provider [phone] Reason for Visit * Reason Comments Leg Pain Encounter Details Date Type Department Care Team ([facility] st Contact Info) Description 01/05/2025 10:20 AM EDT Office Visit [facility] [address] [place] [address] Acute pain of left knee (Primary Dx); Injury of left knee, initial encounter; Sickle cell disease without crisis (CMS/HCC) Social History Tobacco Use Types Packs/Day Years Used Date Smoking Tobacco: Never Passive Smoke Exposure: Never Smokeless Tobacco: Never Alcohol Use Standard Drinks/Week Comments Not Currently 0 (1 standard drink = 0.6 oz pur e alcohol) Depression Answer Date Recorded Patient Health Questionnaire-9 Score 4 09/08/2024 Patient Health Questionnaire-9 Score 4 09/08/2024 Last PHQ-9: Questionnaire Data Not on file 0 09/08/2024 Housing Stability Answer Date Recorded What is [...] Answer Date Recorded Patient Health Questionnaire-2 Score 1 09/08/2024 Internet Access Answer Date Recorded Internet Access [...] on file documented as of this encounter Last Filed Vital Signs Vital Sign Reading Time Taken Comments Blood Pressure 121/66 01/05/2025 9:57 AM EDT Pulse 68 01/05/2025 9:57 AM EDT Temperature 36.7 C (98.1 F) 01/05/2025 9:57 AM EDT Respiratory Rate 16 01/05/2025 9:57 AM EDT Oxygen Saturation 98% 01/05/2025 9:57 AM EDT Inhaled Oxygen Concentration - - Weight 68 kg (150 lb) 01/05/2025 9:57 AM EDT Height - - Body Mass Index 24.21 09/08/2024 2:13 PM EDT documented in this encounter Plan of Treatment Scheduled Orders Name Type Priority Associated Diagnoses Orde r Schedule XR Knee 4+ Views Left Imaging Routine Acute pain of left knee Injury of left knee, initial encounter Expected: 01/05/2025, Expires: 01/05/2026 documented as of this encounter Visit Diagnoses Diagnosis Acute pain of left knee- Primary Injury of left knee, initial encounter Sickle cell disease without crisis (CMS/HCC) 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
== END 2025-01-05 10:57 | disposition home or self-care (01) ==
LOC: HO.HHCX 10:56
PROVIDERS: Visit Provider Emergency Medicine
DX: S89.92XA Unspecified injury of left lower leg, initial encounter (principal); M25.562 Pain in left knee
CPT/HCPCS: 73564

== ENCOUNTER → 2025-01-05 10:56 | Outpatient (BNV) | payer MEDICAID, SELFPAY | PROVIDERS: Visit Provider Radiology Diagnostic Radiology | DX: M25.562 Pain in left knee (principal) | CPT/HCPCS: 73564 ==

== ENCOUNTER 2025-02-01 09:12 | Inpatient (IN) | payer OTHER, SELFPAY ==
[2025-02-01] VITALS (11 sets, daily range): BP systolic 123–134; BP diastolic 48–81; PULSE 56–108; RESP 13–25; TEMP 36.7–37.7; O2SAT 92–99; BMI 22.5
--- NOTE | ~2025-02-01 | XR_ITS ---
EXAMINATION: XR ABDOMEN KUB CLINICAL INDICATION: abd pain COMPARISON: Correlated to CT dated September 01, 2024. TECHNIQUE: AP view of the abdomen. FINDINGS: Abundant stool in the rectum and right hemicolon. Gas filled mildly prominent small bowel and large intestine. No pneumatosis intestinalis. No evidence levels. 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 XR/XR KUB IMPRESSION: Abundant stool without intestinal obstruction pattern. Concerning hematopathology discratia such as sickle cell disease Electronically signed by: Ferny Borden MD 02/03/2025 10:32 AM EDT
--- NOTE | 2025-02-01 09:49 | ED_ITS ---
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 He took motrin at home but threw it up. States last transfusion was many years ago. No trauma to the back. MD complaint: sickle cell crisis, back pain Onset (ago): day(s) (1) Location: back Severity: severe Quality: crushing and constant Pain Consistency: constant Relieving factors: none Exacerbating factors: movement Associated symptoms: nausea/vomiting Treatments prior to arrival: none Related Data Home Medications ?Medication ?Instructions ?Recorded ?Confirmed folic acid 1 mg tablet 1 mg DAILY 09/01/24 09/01/24 hydroxyurea 500 mg capsule 1,500 mg PO DAILY 09/01/24 09/01/24 Allergies Allergy/AdvReac Type Severity Reaction Status Date / Time No Known Allergies Allergy Verified 02/01/25 09:25 Review of Systems 2 Review of Systems: Constitutional : No Weight loss, No Fever, No Chills, ENT/Mouth : No Hearing loss, No Ear Pain, No Nasal Congestion, No Sinus Pain, No Hoarseness, No sore throat, No Rhinorrhea, No Swallowing Difficulty Cardiovascular : No Chest Pain, No SOB Respiratory : No Cough, No Dyspnea Gastrointestinal : pos Nausea, pos Vomiting, No Diarrhea, No abdominal Pain, No Hematochezia, No Melena Genitourinary : No Dysuria, No Urinary Frequency, No Hematuria, No Urinary Incontinence, Musculoskeletal : positive back pain, pos myalgias Skin : No Skin Lesions, No rash Neuro : No Weakness, No Numbness, No Paresthesias, no loss of bowel or bladder incontinence, no saddle anesthesia all other systemst reviewed and are negative PMFSH Past Medical History Attestation statement: The following information was validated with the patient. Source: old records reviewed Medical History Sickle cell anemia Social History Social History Household Members: Friend(s) Housing: House Do you presently have visiting nurse or other home services: No Alcohol intake: current Alcohol intake frequency: holidays/special occasions only Patient Tobacco Use Status: Never used Tobacco Smoked in Last 30 Days: No Use of substances other than those prescribed or required for medical reasons: No Substance Use Type: Marijuana Advance Directives: No Advance Directives Information Provided: Yes Do you have a plan to hurt others: No Plan service: No Physical Exam ED Vital Signs: Vital Signs - 24 hr 02/01/25 09:24 02/01/25 09:45 02/01/25 11:14 Temperature 98.4 F 98.4 F 98.0 F Pulse Rate 67 67 56 Respiratory Rate 22 H 22 H 16 Blood Pressure 134/81 134/81 125/59 L Pulse Oximetry 99 99 99 Oxygen Delivery Method Room Air Room Air Room Air 02/01/25 12:38 Temperature Pulse Rate Respiratory Rate 18 Blood Pressure Pulse Oximetry Oxygen Delivery Method BMI result Body Mass Index 22.5 Appearance: Alert. Oriented X3. in pain mild acute distress. Eyes: Pupils equal, round and reactive to light. scleral icterus ENT: Pharynx normal. Neck: Normal inspection. Neck supple. CVS: Normal heart rate and rhythm. Pulses normal. Respiratory: No respiratory distress. Breath sounds normal. Abdomen: Soft and nontender. Back: no midline ttp Skin: Skin warm and dry. Normal skin color. Normal skin turgor. Extremities: No lower extremity edema. No calf ttp Neuro: Oriented X 3. No motor deficit. No sensory deficit. CN2-12 intact Course Course Course Narrative: repeat IV dilaudid for pain Reevaluation(s) Reevaluation #1: multiple repeat IV doses of IV dilaudid with some improvement in pain but still c/o pain Medications Administered Generic Name Dose Route Start Last Admin Trade Name Freq PRN Reason Stop Dose Admin Sodium Chloride 1,000 mls @ 100 mls/hr 02/01/25 10:00 02/01/25 09:58 Ns IVCONT 100 mls/hr .Q10H MATILDE Administration Discontinued Medications Generic Name Dose Route Start Last Admin Trade Name Freq PRN Reason Stop Dose Admin Hydromorphone HCl 1 mg 02/01/25 10:44 02/01/25 11:15 Hydromorphone Hcl 1 Mg/Ml Syringe IVPUSH 02/01/25 10:45 1 mg ONCE ONE Administration Protocol Hydromorphone HCl 1 mg 02/01/25 12:25 02/01/25 12:38 Hydromorphone Hcl 1 Mg/Ml Syringe IVPUSH 02/01/25 12:26 1 mg ONCE ONE Administration Protocol Sodium Chloride 1,000 mls @ 999 mls/hr 02/01/25 10:01 02/01/25 11:20 Ns IV 02/01/25 11:01 Infused .Q1H1M ONE Infusion Ketorolac Tromethamine 15 mg 02/01/25 12:25 02/01/25 12:37 Ketorolac Tromethamine 15 Mg/Ml Vial IVPUSH 02/01/25 12:26 15 mg ONCE ONE Administration Morphine Sulfate 4 mg 02/01/25 09:51 02/01/25 09:59 Morphine Sulfate 4 Mg/Ml Cartridge IVPUSH 02/01/25 09:52 4 mg ONCE ONE Administration Protocol Medical Decision Making Medical Decision Making MDM Narrative: 24 yo male with PMH of sickle cell anemia here with c/o body pain and back pain but no fevers, no chest pain, no trouble breathing - he is NV intact and has no IVDA or cauda equina symptoms will obtain labs and retic count, start on IVF and morphine for pain Differential Diagnosis Differential Diagnoses: The differential diagnosis associated with the presentation includes sickle cell crisis, back strain Admission/Observation Consideration of admission/observation: Escalation of care including admission/observation considered will admit for hydration and pain control Consult Healthcare Provider Management of the patient was discussed with: Hospitalist (will admit) Lab Data [facility] Lab Attestation statement: I reviewed the patient's lab results. 02/01/25 09:42 02/01/25 09:42 Labs: Lab Results 02/01/25 02/01/25 Range/Units 09:42 09:50 WBC 11.0 H (4.8-10.8) X10*3/uL RBC 2.65 L (4.60-5.80) X10*6/uL Hgb 9.5 L (14.0-18.0) g/dl Hct 25.0 L (42.0-52.0) % MCV 94.3 (80.0-98.0) fL MCH 35.8 H (27.0-33.0) pg MCHC 38.0 H (31.0-36.0) g/dl RDW 16.7 H (11.0-16.0) % Plt Count 375 D (160-400) X10*3/uL MPV 10.2 (9.4-12.4) fL Immature Gran % (Auto) 1.4 H (0.0-0.4) % Neut % (Auto) 42.9 L (45-73) % Lymph % (Auto) 45.6 H (20-40) % [place] % (Auto) 7.8 (2-11) % Eos % (Auto) 2.3 (0-4) % Baso % (Auto) 0.0 (0-2) % Lymph # (Auto) 1.0 L (1.2-4.9) X10*3/uL [place] # (Auto) 0.2 (0.1-1.2) X10*3/uL Eos # (Auto) 0.1 (0.0-0.4) X10*3/uL Baso # (Auto) 0.0 (0.0-0.2) X10*3/uL Abs Immat Gran (auto) 0.03 (0.00-0.03) X10*3/uL Absolute Neuts (auto) 0.9 L (2.0-8.3) x10*3/uL Absolute Nucleated RBC 0.330 H (0.0-0.012) X10*3/uL Nucleated RBC % (auto) 15.2 H (0.0-0.2) /100WBC Smear Tech's Comments VERIFIED Absolute Retic 0.175 H Cancelled (0.026-0.095) X10*6/uL Percent Retic 6.5 H Cancelled (0.5-1.8) % Immature Retic Fraction 19.0 H Cancelled (2.3-13.4) % Retic Hgb Equivalent 31.3 Cancelled (30.0-35.0) pg Hold Purple Top SEE NOTE Sodium 139 (135-145) mmol/L Potassium 4.1 (3.3-5.1) mmol/L Chloride 107 (96-108) mmol/L Carbon Dioxide 23 (22-29) mmol/L Anion Gap 13 (12-20) BUN 12 (9-16) mg/dL Creatinine 0.68 (0.5-1.4) mg/dL Estim Creat Clear Calc 164.8 Estimated GFR > 60 Random Glucose 123 H (60-115) mg/dL Calcium 9.5 (8.4-10.2) mg/dL Total Bilirubin 1.8 H (0.0-1.0) mg/dL AST 64 H (5-37) U/L ALT 41 H (0-40) U/L Alkaline Phosphatase 77 (39-117) U/L Total Protein 8.1 H (6.5-8.0) g/dL Albumin 4.6 (3.5-5.0) g/dL Independent Historian Clinical information obtained from an independent historian. History obtained from or confirmed by: EMS External Record Review External record reviewed: Inpatient record and Outpatient record Critical Care Time Critical Care Time Critical Care Time: Yes Total Critical Care Time: 30 Attestation: repeat IV dilaudid for pain, review of records, admission, medical consult for admission. I attest to this time spent taking care of the patient Discharge Plan Discharge Clinical Impression: Sickle cell crisis Patient Disposition: Admitted As Inpatient Print Language: [place]
[2025-02-01 10:17] LABS: Alanine Aminotransferase 41 U/L (0-40); Albumin Level 4.6 g/dL (3.5-5.0); Alkaline Phosphatase 77 U/L (39-117); Anion Gap 13 (12-20); Aspartate Amino Transferase 64 U/L (5-37); Blood Urea Nitrogen 12 mg/dL (9-16); Calcium 9.5 mg/dL (8.4-10.2); Carbon Dioxide 23 mmol/L (22-29); Chloride 107 mmol/L (96-108); Creatinine Clr Calc Pharmacy 164.8; Estimated Glomerular Filt Rate > 60; Potassium 4.1 mmol/L (3.3-5.1); Sodium 139 mmol/L (135-145); Total Protein 8.1 g/dL (6.5-8.0)
[2025-02-01 10:40] LABS: Imm Gran Abs Auto 0.03 X10*3/uL (0.00-0.03); Imm Gran Pct Auto 1.4 % (0.0-0.4); Lymphocytes Absolute Auto 1.0 X10*3/uL (1.2-4.9); MANUAL DIFF FLAG SCAN; Mean Corpuscular Hemoglobin 35.8 pg (27.0-33.0); Mean Corpuscular Volume 94.3 fL (80.0-98.0); NRBC Abs Auto 0.330 X10*3/uL (0.0-0.012); SCAN SMEAR FLAG 1
[2025-02-01 10:41] LABS: Hematocrit 25.0 % (42.0-52.0); Hemoglobin 9.5 g/dl (14.0-18.0); Mean Corpuscular HGB Conc 38.0 g/dl (31.0-36.0); NRBC Pct Auto 15.2 /100WBC (0.0-0.2); Red Blood Count 2.65 X10*6/uL (4.60-5.80); White Blood Count 11.0 X10*3/uL (4.8-10.8)
[2025-02-01 10:42] LABS: Platelet Count 375 X10*3/uL (160-400); Reticulocytes Absolute 0.175 X10*6/uL (0.026-0.095)
--- NOTE | 2025-02-01 11:17 | PC.NURSE ---
24 M presents to ED with sickle cell crisis, 10/10 lower back pain. A+OX4, anxious, cooperative. RR even and unlabored, denies CP or SOB. Pain radiating from abdomen, to back and bilat legs. Pt sts he got out of work and showered today when it started. No other complaints.
--- NOTE | 2025-02-01 13:36 | PC.NURSE ---
patient oxygen noted to be 89% on room air, patient in no distress, s/p medication administration. upon waking, oxygen 95%. placed on 2L nasal cannula w/ good effect. patient continues to rest more comfortably at this time. call soto within reach
--- NOTE | 2025-02-01 14:48 | PHA.MEDREC ---
Pharmacy Consult ? Medication Reconciliation Pharmacy has completed the medication reconciliation. Patient reported medications. Takes ibuprofen but reported it is not helping. Gardenia Luevano, PharmD
[2025-02-01] MEDS: oxyCODONE HCl Immed Release 5 MG TABLET PO ×2 (16:24→22:54)
--- NOTE | 2025-02-01 16:31 | P.HPHOSP_ITS ---
History of Present Illness Date of Service: 02/01/25 Chief Complaint: Pain 24-year-old man presented in his lower back and chest secondary to sickle cell crisis. Patient denied no fevers, nausea, vomiting, diarrhea. He took Motrin at home but threw it up. His last episode was about 5 or 6 months ago in his last transfusion was years ago. Reticulocyte count elevated. Treated with IV fluids, IV Dilaudid, Toradol and morphine. Plan is to admit patient for further management and treatment of acute sickle cell crisis. Review of Systems 2 Review of Systems: Denies any recent fever chills or decrease in appetite respiratory denies any shortness of breath or cough cardiovascular reports musculoskeletal chest pain from sickle cell crisis gastrointestinal denies any dysphagia abdominal pain nausea vomiting or diarrhea genitourinary denies any dysuria frequency or hematuria musculoskeletal reports right-sided back pain neuropsych denies any weakness or seizures all other systems reviewed are negative [facility] Medical History Sickle cell anemia Social History Household Members: Friend(s) Housing: House Do you presently have visiting nurse or other home services: No Alcohol intake: current Alcohol intake frequency: holidays/special occasions only Patient Tobacco Use Status: Never used Tobacco Smoked in Last 30 Days: No Use of substances other than those prescribed or required for medical reasons: No Substance Use Type: Marijuana Advance Directives: No Advance Directives Information Provided: Yes Do you have a plan to hurt others: No Plan service: No Meds Allergies Allergy/AdvReac Type Severity Reaction Status Date / Time No Known Allergies Allergy Verified 02/01/25 09:25 Active Medications: Current Medications Acetaminophen (Acetaminophen 325 Mg Tablet) 650 mg PO Q6H PRN PRN Reason: Pain, Mild 1-3,fever,headache Calcium Carbonate (Calcium Carbonate 750 Mg Tab.Chew) 750 mg PO Q4H PRN PRN Reason: Heartburn Hydromorphone HCl (Hydromorphone Hcl 1 Mg/Ml Syringe) 1 mg IVPUSH Q3H PRN; Protocol PRN Reason: Pain, Severe (Pain Scale 7-10) Last Admin: 02/01/25 15:54 Dose: 1 mg Sodium Chloride (Ns) 1,000 mls @ 100 mls/hr IVCONT .Q10H MATILDE Last Admin: 02/01/25 09:58 Dose: 100 mls/hr Magnesium Hydroxide (Milk Of Magnesia 30 Ml Oral.Susp) 30 ml PO DAILY PRN PRN Reason: Constipation Melatonin (Melatonin 3 Mg Tablet) 6 mg PO BEDTIME PRN PRN Reason: Insomnia Ondansetron HCl (Ondansetron Hcl 4 Mg/2 Ml Vial) 4 mg IVPUSH Q8H PRN PRN Reason: Nausea and Vomiting Oxycodone HCl (Oxycodone Hcl Immed Release 5 Mg Tablet) 5 mg PO Q6H PRN PRN Reason: Pain, Moderate(Pain Scale 4-6) Last Admin: 02/01/25 16:24 Dose: 5 mg Sodium Chloride (0.9 % Sodium Chloride Flush 3 Ml Syringe) 3 ml IVFLUSH QSHIFT [facility] Last Admin: 02/01/25 14:10 Dose: Not Given Home Medications ?Medication ?Instructions ?Recorded ?Confirmed ?Last Taken ?Type folic acid 1 mg tablet 1 mg DAILY 09/01/24 02/01/25 02/01/25 History hydroxyurea 500 mg capsule 1,500 mg PO DAILY 09/01/24 02/01/25 02/01/25 History ibuprofen 200 mg tablet 400 mg PO Q6H PRN Pain 02/0102/01/25 02/01/25 History Physical Exam 2 Vital Signs and Narrative: Vital Signs: Last Vital Signs Temp 98.0 F 02/01/25 16:19 Pulse 61 02/01/25 16:19 Resp 16 02/01/25 16:19 BP 125/48 L 02/01/25 16:19 Pulse Ox 94 02/01/25 16:19 O2 Del Method Room Air 02/01/25 16:19 BMI result Body Mass Index 22.5 Appearing in no acute distress head is normocephalic atraumatic eyes pupils are PERRLA sclera is anicteric mouth throat mucous membranes are intact and moist neck is supple no lymphadenopathy, no JVD noted lung sounds are clear to auscultation heart regular rate rhythm, clear S1, S2 positive bowel sounds, abdomen is soft, nontender neuro patient is alert x3, no focal deficits Results Labs 02/01/25 09:42 02/01/25 09:42 Labs: Laboratory Results - last 24 hr 02/01/25 02/01/25 09:42 09:50 MCV 94.3 MCH 35.8 H MCHC 38.0 H RDW 16.7 H Plt Count 375 D MPV 10.2 Immature Gran % (Auto) 1.4 H Neut % (Auto) 42.9 L Lymph % (Auto) 45.6 H [place] % (Auto) 7.8 Eos % (Auto) 2.3 Baso % (Auto) 0.0 Lymph # (Auto) 1.0 L [place] # (Auto) 0.2 Eos # (Auto) 0.1 Baso # (Auto) 0.0 Abs Immat Gran (auto) 0.03 Absolute Neuts (auto) 0.9 L Absolute Nucleated RBC 0.330 H Nucleated RBC % (auto) 15.2 H Smear Tech's Comments VERIFIED Absolute Retic 0.175 H Cancelled Percent Retic 6.5 H Cancelled Immature Retic Fraction 19.0 H Cancelled Retic Hgb Equivalent 31.3 Cancelled Hold Purple Top SEE NOTE Anion Gap 13 Estim Creat Clear Calc 164.8 Estimated GFR > 60 Random Glucose 123 H Calcium 9.5 Total Bilirubin 1.8 H AST 64 H ALT 41 H Alkaline Phosphatase 77 Total Protein 8.1 H Albumin 4.6 Assessment and Plan (1) Sickle cell crisis: Status: Acute Plan 24-year-old man admitted with sickle cell crisis exacerbation Sickle cell crisis exacerbation with chest pain Stable H&H Elevated retic count Pain management IV fluids Incentive spirometry Mild transaminitis Secondary to sickle cell crisis DVT prophylaxis with early ambulation Full code Quality Stroke Does the patient have a stroke diagnosis?: No VTE Prior VTE?: No VTE Risk Level:: Medical - moderate - high VTE Device Contraindication: Treatment Not Indicated VTE Drug Contraindication: Treatment Not Indicated
[2025-02-01 23:13] LABS: Appearance Urine Clear; Glucose Urine UA Negative (Negative); PH 6.0 (5.0-9.0); Specific Gravity - Urine 1.010 (1.005-1.025); UMIC TRIGGER UACC YES
[2025-02-02 00:15] VITALS: BP 127/71; PULSE 107; RESP 17; TEMP 37.4; O2SAT 96
[2025-02-02] MEDS: oxyCODONE HCl Immed Release 5 MG TABLET PO ×2 (04:54→17:26)
[2025-02-02 05:05] LABS: Hematocrit 24.4 % (42.0-52.0); Hemoglobin 9.1 g/dl (14.0-18.0); Mean Corpuscular HGB Conc 37.3 g/dl (31.0-36.0); Mean Corpuscular Hemoglobin 36.1 pg (27.0-33.0); Mean Corpuscular Volume 96.8 fL (80.0-98.0); NRBC Abs Auto 2.010 X10*3/uL (0.0-0.012); Platelet Count 419 X10*3/uL (160-400); Red Blood Count 2.52 X10*6/uL (4.60-5.80); White Blood Count 13.1 X10*3/uL (4.8-10.8)
[2025-02-02 05:26] LABS: Anion Gap 12 (12-20); Blood Urea Nitrogen 7 mg/dL (9-16); Calcium 8.7 mg/dL (8.4-10.2); Carbon Dioxide 24 mmol/L (22-29); Chloride 108 mmol/L (96-108); Creatinine Clr Calc Pharmacy 200.2; Estimated Glomerular Filt Rate > 60; Potassium 4.1 mmol/L (3.3-5.1); Sodium 140 mmol/L (135-145)
[2025-02-02 05:30] LABS: NRBC Pct Auto 15.4 /100WBC (0.0-0.2)
[2025-02-02 05:36] VITALS: BP 133/75; PULSE 105; RESP 19; TEMP 37.3; O2SAT 93
[2025-02-02 05:36] LABS: Band Neutrophils Percent 2 % (3-5); Basophils Abs Manual 0.1 X10*3/uL (0.0-0.2); Basophils Percent Manual 1 % (0-2); Lymphocytes Absolute Manual 1.8 X10*3/uL (1.2-4.9); Lymphocytes Percent Manual 14 % (20-40); Monocytes Absolute Manual 1.6 X10*3/uL (0.1-1.2); Monocytes Percent Manual 12 % (2-11); Myelocytes Absolute 0.1 X10*/uL; Myelocytes Percent 1 %; Neutrophils Absolute Manual 9.4 X10*3/uL (2.0-8.3); Neutrophils Percent Manual 70 % (45-73)
[2025-02-02 05:37] LABS: RBC Morphology NOTED
[2025-02-02 05:38] LABS: Macrocytosis 1+ (5-14) /OIF; Ovalocytes 1+ (5-14) /OIF; Target Cells 1+ (5-14) /OIF
[2025-02-02 05:39] LABS: Microcytosis 1+ (5-14) /OIF; Polychromasia 1+ (0-2) /OIF
[2025-02-02 05:40] LABS: Smudge Cells PRESENT
[2025-02-02 05:41] LABS: Large Platelet PRESENT; Schistocytes 1+ (0-2) /OIF; Sickle Cells 2+ (3-5) /OIF; Stomatocytes 1+ (5-14) /OIF
[2025-02-02 08:17] VITALS: BP 129/75; PULSE 89; RESP 18; TEMP 37.1; O2SAT 91
[2025-02-02 11:40] VITALS: BP 140/65; PULSE 89; RESP 16; TEMP 37.2; O2SAT 94
--- NOTE | 2025-02-02 12:01 | MHC.CM.PN ---
Male 24 DX Sickle Cell Crisis Lives with Family. Independent with all functional mobility. PCP Amanda ALEMAN home self care. Patient will arrange for a family member to provide transportation home at discharge.
--- NOTE | 2025-02-02 12:12 | P.PNIM_ITS ---
Subjective Subjective Date of Service: 02/02/25 Interval History: pain Physical Exam 2 Exam: Exam: General: AO X 3, no acute distress Resp: CTA bilateral, no accessory muscles used CVS: S1,S2,RRR GI: soft, non tender, non distended Neuro: motor grossly intact, alert Psych: appropriate affect, appropriate insight Vital Signs: Vital Signs: Last Vital Signs Temp 98.9 F 02/02/25 11:40 Pulse 89 02/02/25 11:40 Resp 16 02/02/25 11:40 BP 140/65 H 02/02/25 11:40 Pulse Ox 94 02/02/25 11:40 O2 Del Method Nasal Cannula 02/02/25 11:40 O2 Flow Rate 1 02/02/25 11:40 BMI result Body Mass Index 22.5 Objective Data Active Medications Acetaminophen (Acetaminophen 325 Mg Tablet) 650 mg PO Q6H PRN PRN Reason: Pain, Mild 1-3,fever,headache Calcium Carbonate (Calcium Carbonate 750 Mg Tab.Chew) 750 mg PO Q4H PRN PRN Reason: Heartburn Hydromorphone HCl (Hydromorphone Hcl 1 Mg/Ml Syringe) 1.5 mg IVPUSH Q3H PRN; Protocol PRN Reason: Pain, Severe (Pain Scale 7-10) Last Admin: 02/02/25 11:04 Dose: 1.5 mg Documented By: REINIER Sodium Chloride (Ns) 1,000 mls @ 100 mls/hr IVCONT .Q10H MATILDE Last Admin: 02/02/25 05:57 Dose: 100 mls/hr Documented By: KIM Magnesium Hydroxide (Milk Of Magnesia 30 Ml Oral.Susp) 30 ml PO DAILY PRN PRN Reason: Constipation Melatonin (Melatonin 3 Mg Tablet) 6 mg PO BEDTIME PRN PRN Reason: Insomnia Ondansetron HCl (Ondansetron Hcl 4 Mg/2 Ml Vial) 4 mg IVPUSH Q8H PRN PRN Reason: Nausea and Vomiting Oxycodone HCl (Oxycodone Hcl Immed Release 5 Mg Tablet) 5 mg PO Q6H PRN PRN Reason: Pain, Moderate(Pain Scale 4-6) Last Admin: 02/02/25 04:54 Dose: 5 mg Documented By: KIM Sodium Chloride (0.9 % Sodium Chloride Flush 3 Ml Syringe) 3 ml IVFLUSH QSHIFT [facility] Last Admin: 02/02/25 07:06 Dose: Not Given Documented By: VANESSA Non-Admin Reason: IV Running Labs 02/02/25 04:47 02/02/25 04:47 Labs: Laboratory Results - last 24 hr 02/01/25 02/02/25 23:07 04:47 MCV 96.8 MCH 36.1 H MCHC 37.3 H RDW 18.8 H Plt Count 419 H MPV 9.6 Immature Gran % (Auto) Cancelled Neut % (Auto) Cancelled Lymph % (Auto) Cancelled [facility] % (Auto) Cancelled Eos % (Auto) Cancelled Baso % (Auto) Cancelled Lymph # (Auto) Cancelled [facility] # (Auto) Cancelled Eos # (Auto) Cancelled Baso # (Auto) Cancelled Abs Immat Gran (auto) Cancelled Absolute Neuts (auto) Cancelled Absolute Nucleated RBC 2.010 H Nucleated RBC % (auto) 15.4 H Neutrophils % (Manual) 70 Band Neutrophils % 2 L Lymphocytes % (Manual) 14 L Monocytes % (Manual) 12 H Basophils % (Manual) 1 Myelocytes % 1 Abs Neuts (Manual) 9.4 H Lymphocytes # (Manual) 1.8 Monocytes # (Manual) 1.6 H Basophils # (Manual) 0.1 Myelocytes # 0.1 Nucleated RBCs 29 H Smudge Cells PRESENT Platelet Estimate NORMAL Large Platelets PRESENT Plt Morphology Comment NOTED RBC Morphology NOTED Polychromasia 1+ (0-2) Microcytosis 1+ (5-14) Macrocytosis 1+ (5-14) Sickle Cells 2+ (3-5) Target Cells 1+ (5-14) Ovalocytes 1+ (5-14) Stomatocytes 1+ (5-14) Carbone-Huntington Bodies PRESENT Schistocytes 1+ (0-2) Anion Gap 12 Estim Creat Clear Calc 200.2 Estimated GFR > 60 Random Glucose 121 H Calcium 8.7 D Urine Color Yellow Urine Appearance Clear Urine pH 6.0 Ur Specific [place] 1.010 Urine Protein 30 (1+) H Urine Glucose (UA) Negative Urine Ketones Trace Urine Blood Negative Urine Nitrite Negative Ur Leukocyte Esterase Negative Urine RBC 0-2 Urine WBC 0-5 Ur Squamous Epith Cells 0-2 Urine Bacteria None Seen Hyaline Casts 0-2 Assessment and Plan (1) Sickle cell crisis: Status: Acute Plan 24M PMH sickle cell disease, presented with back pain Sickle cell disease with acute crisis Continue IV fluids, pain control, monitor hemoglobin DVT prophylaxis with Lovenox Full Code reason for continued hospitalization: Requiring IV pain med Quality Stroke Does the patient have a stroke diagnosis?: No VTE Prior VTE?: No VTE Risk Level:: Medical - moderate - high VTE Device Contraindication: Treatment Not Indicated VTE Drug Contraindication: Treatment Not Indicated
[2025-02-02 15:12] VITALS: BP 142/72; PULSE 99; RESP 18; TEMP 37.1; O2SAT 94
[2025-02-02 19:45] VITALS: BP 140/66; PULSE 87; RESP 18; TEMP 37.7; O2SAT 93
[2025-02-03] VITALS (7 sets, daily range): BP systolic 128–137; BP diastolic 60–80; PULSE 75–120; RESP 18–20; TEMP 36.6–37.7; O2SAT 91–100
--- NOTE | 2025-02-03 | ECG_ITS ---
Test Reason : cp Blood Pressure : */* mmHG Vent. Rate : 67 BPM Atrial Rate : 67 BPM P-R Int : 124 ms QRS Dur : 100 ms QT Int : 406 ms P-R-T Axes : 36 29 24 degrees QTcB Int : 429 ms Normal sinus rhythm with sinus arrhythmia Nonspecific T wave abnormality Abnormal ECG When compared with ECG of 01-Sep-2024 15:26, Nonspecific T wave abnormality now evident in Anterior leads Referred By: Dickson Gallego Electronically Signed By: Jh Pascal
[2025-02-03] MEDS: oxyCODONE HCl Immed Release 5 MG TABLET PO (00:40)
[2025-02-03 08:37] LABS: Anion Gap 14 (12-20); Blood Urea Nitrogen 6 mg/dL (9-16); Calcium 9.0 mg/dL (8.4-10.2); Carbon Dioxide 23 mmol/L (22-29); Chloride 105 mmol/L (96-108); Creatinine Clr Calc Pharmacy 183.8; Estimated Glomerular Filt Rate > 60; Potassium 4.6 mmol/L (3.3-5.1); Sodium 137 mmol/L (135-145)
[2025-02-03] MEDS: 0.9 % Sodium Chloride Flush 3 ML SYRINGE IVFLUSH (09:22)
[2025-02-03] MEDS: Milk of Magnesia 30 ML ORAL.SUSP PO (09:24)
[2025-02-03 09:49] LABS: Hematocrit 24.1 % (42.0-52.0); Hemoglobin 9.0 g/dl (14.0-18.0); Mean Corpuscular HGB Conc 37.3 g/dl (31.0-36.0); Mean Corpuscular Hemoglobin 36.6 pg (27.0-33.0); Mean Corpuscular Volume 98.0 fL (80.0-98.0); NRBC Abs Auto 1.280 X10*3/uL (0.0-0.012); Platelet Count 414 X10*3/uL (160-400); Red Blood Count 2.46 X10*6/uL (4.60-5.80); White Blood Count 10.8 X10*3/uL (4.8-10.8)
[2025-02-03 09:50] LABS: NRBC Pct Auto 11.8 /100WBC (0.0-0.2)
--- NOTE | 2025-02-03 10:49 | P.PNIM_ITS ---
Subjective Subjective Date of Service: 02/03/25 Interval History: Ongoing pain, constipation Physical Exam 2 Exam: Exam: General: AO X 3, no acute distress Resp: CTA bilateral, no accessory muscles used CVS: S1,S2,RRR GI: soft, non tender, non distended Neuro: motor grossly intact, alert Psych: appropriate affect, appropriate insight Vital Signs: Vital Signs: Last Vital Signs Temp 97.9 F 02/03/25 07:07 Pulse 106 H 02/03/25 07:07 Resp 18 02/03/25 07:07 BP 137/80 02/03/25 07:07 Pulse Ox 93 02/03/25 07:07 O2 Del Method Room Air 02/03/25 07:07 O2 Flow Rate 2 02/03/25 03:24 BMI result Body Mass Index 22.5 Objective Data Active Medications Acetaminophen (Acetaminophen 325 Mg Tablet) 650 mg PO Q6H PRN PRN Reason: Pain, Mild 1-3,fever,headache Last Admin: 02/03/25 10:10 Dose: 650 mg Documented By: AROLDO Calcium Carbonate (Calcium Carbonate 750 Mg Tab.Chew) 750 mg PO Q4H PRN PRN Reason: Heartburn Enoxaparin Sodium (Enoxaparin Sodium 40 Mg/0.4 Ml Syringe) 40 mg SUBCUT Q24H MATILDE Last Admin: 02/03/25 09:25 Dose: 40 mg Documented By: AROLDO Hydromorphone HCl (Hydromorphone Hcl 1 Mg/Ml Syringe) 1.5 mg IVPUSH Q3H PRN; Protocol PRN Reason: Pain, Severe (Pain Scale 7-10) Last Admin: 02/03/25 09:26 Dose: 1.5 mg Documented By: AROLDO Sodium Chloride (Ns) 1,000 mls @ 100 mls/hr IVCONT .Q10H MATILDE Last Admin: 02/03/25 00:41 Dose: 100 mls/hr Documented By: SUJIT Magnesium Hydroxide (Milk Of Magnesia 30 Ml Oral.Susp) 30 ml PO DAILY PRN PRN Reason: Constipation Last Admin: 02/03/25 09:24 Dose: 30 ml Documented By: AROLDO Melatonin (Melatonin 3 Mg Tablet) 6 mg PO BEDTIME PRN PRN Reason: Insomnia Ondansetron HCl (Ondansetron Hcl 4 Mg/2 Ml Vial) 4 mg IVPUSH Q8H PRN PRN Reason: Nausea and Vomiting Oxycodone HCl (Oxycodone Hcl Immed Release 5 Mg Tablet) 5 mg PO Q6H PRN PRN Reason: Pain, Moderate(Pain Scale 4-6) Last Admin: 02/03/25 00:40 Dose: 5 mg Documented By: SUJIT Sodium Chloride (0.9 % Sodium Chloride Flush 3 Ml Syringe) 3 ml IVFLUSH QSHIFT [facility] Last Admin: 02/03/25 09:22 Dose: 3 ml Documented By: AROLDO Labs 02/03/25 09:38 02/03/25 07:50 Labs: Laboratory Results - last 24 hr 02/03/25 02/03/25 07:50 09:38 MCV 98.0 MCH 36.6 H MCHC 37.3 H RDW 18.1 H Plt Count 414 H MPV 9.5 Absolute Nucleated RBC 1.280 H Nucleated RBC % (auto) 11.8 H Anion Gap 14 Estim Creat Clear Calc 183.8 Estimated GFR > 60 Random Glucose 108 Calcium 9.0 Assessment and Plan (1) Sickle cell crisis: Status: Acute Plan 24M PMH sickle cell disease, presented with back pain Sickle cell disease with acute crisis Continue IV fluids, pain control, monitor hemoglobin Constipation Due to opiates MiraLax Monitor DVT prophylaxis with Lovenox Full Code reason for continued hospitalization: Requiring IV pain med Quality Stroke Does the patient have a stroke diagnosis?: No VTE Prior VTE?: No VTE Risk Level:: Medical - moderate - high VTE Device Contraindication: Treatment Not Indicated VTE Drug Contraindication: Treatment Not Indicated
[2025-02-04 03:05] VITALS: BP 134/69; PULSE 98; RESP 18; TEMP 37.7; O2SAT 90
[2025-02-04 07:08] VITALS: BP 136/64; PULSE 82; RESP 18; TEMP 37.2; O2SAT 97
[2025-02-04 07:25] LABS: Hematocrit 23.0 % (42.0-52.0); Hemoglobin 8.4 g/dl (14.0-18.0); Mean Corpuscular HGB Conc 36.5 g/dl (31.0-36.0); Mean Corpuscular Hemoglobin 36.1 pg (27.0-33.0); Mean Corpuscular Volume 98.7 fL (80.0-98.0); NRBC Abs Auto 0.890 X10*3/uL (0.0-0.012); Platelet Count 458 X10*3/uL (160-400); Red Blood Count 2.33 X10*6/uL (4.60-5.80); White Blood Count 9.9 X10*3/uL (4.8-10.8)
[2025-02-04 07:30] LABS: NRBC Pct Auto 9.0 /100WBC (0.0-0.2)
[2025-02-04 07:42] LABS: Alanine Aminotransferase 20 U/L (0-40); Albumin Level 3.6 g/dL (3.5-5.0); Alkaline Phosphatase 95 U/L (39-117); Anion Gap 11 (12-20); Aspartate Amino Transferase 47 U/L (5-37); Blood Urea Nitrogen 6 mg/dL (9-16); Calcium 8.7 mg/dL (8.4-10.2); Carbon Dioxide 27 mmol/L (22-29); Chloride 104 mmol/L (96-108); Creatinine Clr Calc Pharmacy 195.0; Estimated Glomerular Filt Rate > 60; Magnesium 1.6 mg/dL (1.6-2.6); Potassium 3.9 mmol/L (3.3-5.1); Sodium 138 mmol/L (135-145); Total Protein 6.9 g/dL (6.5-8.0)
--- NOTE | 2025-02-04 09:00 | MHC.CM.PN ---
Patient is not medically cleared to discharge. He continues to require IV pain medication. SPO2 90%, Patient requires supplemental oxygen. DP home self care. Patient will arrange for transportation home at discharge.
--- NOTE | 2025-02-04 10:17 | PM.DS ---
DS: Providers Provider Date of Service: 02/04/25 Date of admission: 02/01/25 13:42 Date of discharge: 02/04/25 Primary care physician: Amanda Harrison NP DS: Diagnosis Discharge Diagnosis (1) Sickle cell crisis: Status: Acute DS: Summary Hospital Course Hospital Course: from initial hpi: 24-year-old man presented in his lower back and chest secondary to sickle cell crisis. Patient denied no fevers, nausea, vomiting, diarrhea. He took Motrin at home but threw it up. His last episode was about 5 or 6 months ago in his last transfusion was years ago. Reticulocyte count elevated. Treated with IV fluids, IV Dilaudid, Toradol and morphine. Plan is to admit patient for further management and treatment of acute sickle cell crisis. hospital course: Patient was admitted for sickle cell disease with acute crisis. Was treated with IV fluids, pain control, symptoms improved and will be discharged home continued on Hydrea and folic acid. Hemoglobin stable between 8 and 10. Time Attestation Discharge Coordination Time (in mins): 34 Quality: Safe Use of Opioids Does Pt have an Active Cancer Diagnosis on the Problem List?: No Quality: Stroke Does the patient have a stroke diagnosis?: No Physical Exam Exam: Exam: General: AO X 3, no acute distress Resp: CTA bilateral, no accessory muscles used CVS: S1,S2,RRR GI: soft, non tender, non distended Neuro: motor grossly intact, alert Psych: appropriate affect, appropriate insight Vital Signs: Vital Signs: Last Vital Signs Temp 98.9 F 02/04/25 07:08 Pulse 82 02/04/25 07:08 Resp 18 02/04/25 07:08 BP 136/64 02/04/25 07:08 Pulse Ox 97 02/04/25 07:08 O2 Del Method Nasal Cannula 02/04/25 07:08 O2 Flow Rate 2 02/04/25 07:08 BMI result Body Mass Index 22.5 DS: Data Data Completed and Pending Labs on day of discharge: Laboratory Results - last 24 hr 02/04/25 06:44 WBC 9.9 RBC 2.33 L Hgb 8.4 L Hct 23.0 L MCV 98.7 H MCH 36.1 H MCHC 36.5 H RDW 17.5 H Plt Count 458 H MPV 9.9 Absolute Nucleated RBC 0.890 H Nucleated RBC % (auto) 9.0 H Sodium 138 Potassium 3.9 Chloride 104 Carbon Dioxide 27 Anion Gap 11 L BUN 6 L Creatinine 0.57 Estim Creat Clear Calc 195.0 Estimated GFR > 60 Random Glucose 96 Calcium 8.7 Magnesium 1.6 Total Bilirubin 2.2 H Direct Bilirubin 0.5 AST 47 H ALT 20 Alkaline Phosphatase 95 Total Protein 6.9 Albumin 3.6 Discharge Plan Discharge Anticipated Discharge Date/Time: 02/04/25 09:57 Patient Disposition: Home, Self-Care Discharge Diagnosis: sickle cell Referrals: Amanda Harrison NP [Primary Care Provider, Internal Medicine] - 1 Week Discharge Medications: New hydromorphone 2 mg tablet 2 mg PO Q6H PRN (Reason: pain (scale score 7-10)) Qty: 10 0RF Rx Instructions: Partial Fill upon patient request. Continued hydroxyurea 500 mg capsule 1,500 mg PO DAILY folic acid 1 mg tablet 1 mg DAILY ibuprofen 200 mg Tablet 400 mg PO Q6H PRN (Reason: Pain) Discharge Orders: Discharge Order (Routine); Ordered 02/04/25 Ordered By: Dickson Gallego Diet: Advance to usual diet Activity on Discharge: As tolerated Stand Alone Forms: Patient Portal Discharge page Print Language: Tanzanian Care Plan Goals: recovery Health Concerns: sickle cell Plan of Treatment: conitnue meds Assessment: see above
--- NOTE | 2025-02-04 10:43 | MHC.CM.PN ---
Patient is medically cleared to discharge today to home, self care. He has arranged for transportation.
== END 2025-02-04 11:30 | disposition home or self-care (01) | DRG 812 ==
LOC: HO.ED 13:15 → HO.EDOVER 14:01 → HO.IMC 02-02 07:37
PROVIDERS: Admitting Provider Nurse Practitioner Acute Care; Emergency Provider Emergency Medicine; PCP Nurse Practitioner Primary Care; Visit Provider Internal Medicine
DX: D57.00 Hb-SS disease with crisis, unspecified (principal); K59.03 Drug induced constipation; T40.605A Adverse effect of unspecified narcotics, initial encounter; Z79.899 Other long term (current) drug therapy
CPT/HCPCS: 36415; 74018; 80048; 80053; 80076; 81001; 83735; 85007; 85025; 85027; 85045; 93005; 99285; J1171; J1650; J1885; J2270

== ENCOUNTER 2025-02-01 13:42 | Outpatient (BNV) | payer SELFPAY | END 2025-02-03 09:23 | PROVIDERS: Admitting Provider Nurse Practitioner Acute Care; Emergency Provider Emergency Medicine; PCP Nurse Practitioner Primary Care; Visit Provider Radiology Diagnostic Radiology | DX: K56.41 Fecal impaction (principal) | CPT/HCPCS: 74018 ==

== ENCOUNTER 2025-02-01 13:42 | Outpatient (BNV) | payer SELFPAY | END 2025-02-03 12:26 | PROVIDERS: Admitting Provider Nurse Practitioner Acute Care; Emergency Provider Emergency Medicine; PCP Nurse Practitioner Primary Care; Visit Provider Internal Medicine Cardiovascular Disease | DX: R94.31 Abnormal electrocardiogram [ECG] [EKG] (principal); R07.9 Chest pain, unspecified | CPT/HCPCS: 93010 ==

== ENCOUNTER → 2025-02-01 13:42 | Outpatient (BNV) | payer OTHER, SELFPAY | PROVIDERS: Admitting Provider Nurse Practitioner Acute Care; Emergency Provider Emergency Medicine; PCP Nurse Practitioner Primary Care; Visit Provider Internal Medicine | DX: D57.00 Hb-SS disease with crisis, unspecified (principal) | CPT/HCPCS: 99223; 99233; 99239 ==

== ENCOUNTER 2025-04-05 08:43 | Emergency (ER) | payer OTHER, SELFPAY ==
--- OUTSIDE RECORDS SUMMARY | 2020-09-07 06:44 | XMS_ITS | Continuity of Care Document ---
Author Organization [facility] Address [address] [place] [phone] Phone Care Team Providers Care [employer] Name Role Phone Unavailable Unavailable Unavailable Advance Directives Directive Yes / No Effective Date File Name No Information Encounters Encounter Description Practice Location Reason(s) For Visit Diagnoses Date Provider Providers Copied on Encounter [facility], [address] [place] [address], [id number], tel:[phone] [facility] No Information No Information Family History Family Member Type Diagnosis Age At Onset No Information Payers Payer name Insurance type Covered alliance party ID Authoriza tion(s) No Information Social History [...]
--- NOTE | ~2025-04-05 | XR_ITS ---
EXAMINATION: XR CHEST CLINICAL INFORMATION: Sickle cell disease, chest pain, R/O infiltrate COMPARISON: 09/01/2024. 06/22/2024. TECHNIQUE: 2 views of the chest were obtained. FINDINGS: There is mild cardiac enlargement. Mediastinal and hilar contours appear normal. The lungs are clear bilaterally. There is no pneumothorax or pleural effusion. There is no focal osseous or soft tissue abnormality. There is increased density of the osseous structures. XR/XR chest 2V IMPRESSION: No active pulmonary disease. Mild cardiac enlargement. Electronically signed by: Mesfin Buchanan MD 04/05/2025 12:00 PM EDT
--- NOTE | 2025-04-05 08:47 | ECG_ITS ---
Test Reason : cp Blood Pressure : */* mmHG Vent. Rate : 64 BPM Atrial Rate : 64 BPM P-R Int : 132 ms QRS Dur : 100 ms QT Int : 398 ms P-R-T Axes : 35 40 34 degrees QTcB Int : 410 ms Normal sinus rhythm with sinus arrhythmia Normal ECG When compared with ECG of 03-Feb-2025 12:26, Nonspecific T wave abnormality, improved in Inferior leads Nonspecific T wave abnormality no longer evident in Anterolateral leads Referred By: Generic ED Physician Electronically Signed By: Jh Pascal
[2025-04-05 08:55] VITALS: BP 134/70; PULSE 66; RESP 18; TEMP 36.6; O2SAT 99; BMI 23.1
--- OUTSIDE RECORDS SUMMARY | 2025-04-05 09:24 | XMS_ITS | Encounter Summary ---
Author Organization [employer] Address [address] [facility] 7[address] [place] [address] Care Team Providers Care Installer Helper Name Role Phone Amanda Harrison Primary Care Provider Reason for Visit * Reason Onset Date Comments Med Refill 09/28/2023 Encounter Details Date Type Department Care Team (Late st Contact Info) Description 09/28/2023 Refill [facility] [address] [place], [place] [phone] Amanda Harrison ANP [address] [place] [address] Sickle cell disease without crisis (CMS/HCC) Social [...] with others, in a hotel, in a jail, living outside on the street, on a [...] Industry Job Start Date Job End Date [employer] Not on file Not on file Not on file documented as of this encounter Plan of Treatment Not on file documented as of this encounter Visit Diagnoses Diagnosis Sickle cell disease without crisis (CMS/HCC) (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
--- OUTSIDE RECORDS SUMMARY | 2025-04-05 09:24 | XMS_ITS | Encounter Summary ---
Author Organization [employer] Address [address] [facility] 7[address] [place] [address] Care Team Providers Care Piercer Name Role Phone Amanda Harrison Primary Care Provider [phone] Reason for Visit * Reason Onset Date Comments Med Refill 08/26/2023 Encounter Details Date Type Department Care Team (Late st Contact Info) Description 08/26/2023 Refill [facility] [address] [place], [place] [phone] Amanda Harrison ANP [address] [place] [address] Sickle cell disease without crisis (CMS/HCC) Social [...] with others, in a hotel, in a half-way, living outside on the street, on a [...] Industry Job Start Date Job End Date [employer] Not on file Not on file Not on file documented as of this encounter Plan of Treatment Not on file documented as of this encounter Visit Diagnoses Diagnosis Sickle cell disease without crisis (CMS/HCC) (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
--- OUTSIDE RECORDS SUMMARY | 2025-04-05 09:24 | XMS_ITS | Encounter Summary ---
Author Organization [employer] Address [address] [facility] 7t [place] [address] Care Team Providers Care Bag Bailer Name Role Phone Amanda Harrison Primary Care Provider [phone] Encounter Details Date Type Department Care Team (Latest Contact Info) Description 02/01/2025 Results Follow-Up [facility] [address] [place], [place] [phone] Amanda Harrison ANP [address] [place] [address] Hold Green Gel, Hold Lavender - Possible Hematology, Comprehensive Metabolic Panel Social History Tobacco Use Types Packs/Day Years [...] on file documented as of this encounter Miscellaneous Notes * Result Encounter Note - GUSTAVO Tao - 02/01/2025 11:02 AM EDT Awaiting additional labs or notes, not evident if pt at ED or elsewhere documented in this encounter Plan of Treatment Not on file documented as of this encounter Visit Diagnoses Not on filedocumented in this encounter Additional Health Concerns Assessment Noted Time PHQ-9 Depression Total Score: 4 09/09/19 25 2:17 PM EDT documented as of this encounter Care Teams Bag Bailer Relationship Specialty Start Date End Date Amanda Harrison ANP [address] [place] [address] PCP - General Family Medicine 04/11/23 documented as of this encounter
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
[2025-04-05 09:32] LABS: MANUAL DIFF FLAG NO
[2025-04-05 09:33] LABS: Hematocrit 27.7 % (42.0-52.0); Hemoglobin 10.0 g/dl (14.0-18.0); Imm Gran Abs Auto 0.07 X10*3/uL (0.00-0.03); Imm Gran Pct Auto 0.7 % (0.0-0.4); Lymphocytes Absolute Auto 4.0 X10*3/uL (1.2-4.9); Mean Corpuscular HGB Conc 36.1 g/dl (31.0-36.0); Mean Corpuscular Hemoglobin 35.7 pg (27.0-33.0); Mean Corpuscular Volume 98.9 fL (80.0-98.0); NRBC Abs Auto 0.570 X10*3/uL (0.0-0.012); Platelet Count 307 X10*3/uL (160-400); Red Blood Count 2.80 X10*6/uL (4.60-5.80); White Blood Count 9.4 X10*3/uL (4.8-10.8)
[2025-04-05 09:36] LABS: NRBC Pct Auto 6.0 /100WBC (0.0-0.2)
[2025-04-05 09:44] LABS: Anion Gap 14 (12-20); Blood Urea Nitrogen 6 mg/dL (9-16); Calcium 9.3 mg/dL (8.4-10.2); Carbon Dioxide 26 mmol/L (22-29); Chloride 108 mmol/L (96-108); Creatinine Clr Calc Pharmacy 183.6; Estimated Glomerular Filt Rate > 60; Potassium 3.9 mmol/L (3.3-5.1); Sodium 144 mmol/L (135-145)
[2025-04-05 09:52] LABS: Troponin-I High Sensitivity 5.0 ng/L (<3.5-35.0)
--- NOTE | 2025-04-05 10:36 | ED.CHESTPAIN ---
HPI - Chest Pain General Chief Complaint: Chest Pain Stated Complaint: chest pain Time Seen by Provider: 04/05/25 10:36 Source: patient Mode of arrival: ambulatory Limitations: no limitations History of Present Illness ED Provider: Dr. Demarcus Contreras HPI narrative: 25-year-old male with a history of sickle cell disease who presents emergency department for evaluation of chest pain. The patient states that he had gradual onset of chest pain at 08:00 hours. He points to his sternum when asked to localize the pain. He states the pain is a constant 8/10 deep ache. Patient states that he gets similar chest pain 2 to 3 times a month and has been here in the emergency department in the past for similar chest pain he denied fever, chills, cough, nausea, vomiting, shortness of breath, dyspnea on exertion. He denies injection drug use. Patient states that he takes folic acid and hydroxyurea but ran out in his folic acid. Patient's last ED visit was on 02/01/2025 for back pain. He was treated with Dilaudid 1 mg IV x2, Toradol 15 mg IV x1, morphine 4 mg IV x1 and normal saline x1 L Related Data Home Medications ?Medication ?Instructions ?Recorded ?Confirmed folic acid 1 mg tablet 1 mg DAILY 09/01/24 02/01/25 hydroxyurea 500 mg capsule 1,500 mg PO DAILY 09/01/24 02/01/25 ibuprofen 200 mg tablet 400 mg PO Q6H PRN Pain 02/01/25 02/01/25 Previous Rx's ?Medication ?Instructions ?Recorded hydromorphone 2 mg tablet 2 mg PO Q6H PRN pain (scale score 02/04/25 7-10) #10 tabs folic acid 1 mg tablet 1 mg PO DAILY 90 days #90 tabs 04/05/25 hydroxyurea 500 mg capsule (Hydrea) 1,500 mg (3 x 500 mg) PO DAILY 90 04/05/25 days #270 caps morphine 15 mg immediate release 15 mg PO Q6H PRN pain #14 tabs 04/05/25 tablet Allergies Allergy/AdvReac Type Severity Reaction Status Date / Time No Known Allergies Allergy Verified 04/05/25 08:57 Review of Systems Review of Systems: Yes all other systems are reviewed and are negative PMFSH Past Medical History [facility] Narrative: Social history: The patient that has tobacco use. Occasionally drinks alcohol. He denies injection drug use Medical History Sickle cell anemia Social History Social History Household Members: Family Housing: House Do you presently have visiting nurse or other home services: No Alcohol intake: current Alcohol intake frequency: holidays/special occasions only Patient Tobacco Use Status: Never used Tobacco Second Hand Smoke Exposure: No Substance Use Type: Marijuana Advance Directives: No Advance Directives Information Provided: Yes Do you have a plan to hurt others: No Plan service: No Physical Exam Vital Signs: Vital Signs: Last Vital Signs Temp 97.9 F 04/05/25 11:20 Pulse 52 04/05/25 11:20 Resp 15 04/05/25 11:20 BP 121/59 L 04/05/25 11:20 Pulse Ox 97 04/05/25 11:20 O2 Del Method Room Air 04/05/25 08:55 BMI result Body Mass Index 23.1 Vital signs were normal Exam: General: Awake, alert in no distress Head: Normocephalic, atraumatic EENT: PERRL, sclera and conjunctiva are normal, mouth with no erythema or exudates Neck: Supple, no adenopathy Lung: breath sounds symmetric, no wheezing, no rales and no rhonchi Chest: symmetric movement, nontender Heart: regular rate and rhythm, normal S1, S2 no murmurs or rubs Abdomen: soft, non-tender, nondistended, normal bowel sounds Back: no vertebral tenderness, no CVAT Extremities: no deformities, moves all extremities symmetrically, no edema Neuro: Awake, alert, oriented, normal speech, cranial nerves 2-12 intact, moves all extremities symmetrically Psych: Pleasant, cooperative Medications Administered Discontinued Medications Generic Name Dose Route Start Last Admin Trade Name Freq PRN Reason Stop Dose Admin Hydromorphone HCl 1 mg 04/05/25 10:53 04/05/25 11:12 Hydromorphone Hcl 1 Mg/Ml Syringe IVPUSH 04/05/25 10:54 1 mg ONCE STA Administration Protocol Sodium Chloride 1,000 mls @ 999 mls/hr 04/05/25 10:48 04/05/25 11:12 Ns IV 04/05/25 11:48 999 mls/hr .Q1H1M STA Administration Ketorolac Tromethamine 15 mg 04/05/25 10:57 04/05/25 11:13 Ketorolac Tromethamine 15 Mg/Ml Vial IVPUSH 04/05/25 10:58 15 mg ONCE STA Administration Medical Decision Making Medical Decision Making MDM Narrative: 25-year-old male with a history of sickle cell disease who presents emergency department for evaluation of chest pain. The patient states that he had gradual onset of chest pain at 08:00 hours. He points to his sternum when asked to localize the pain. He states the pain is a constant 8/10 deep ache. Patient states that he gets similar chest pain 2 to 3 times a month and has been here in the emergency department in the past for similar chest pain he denied fever, chills, cough, nausea, vomiting, shortness of breath, dyspnea on exertion. He denies injection drug use. Patient states that he takes folic acid and hydroxyurea but ran out in his folic acid. Vital signs were normal. Physical examination was unremarkable Differential diagnosis: ?Includes but is not limited to sickle cell crisis, Chest syndrome, aplastic anemia, electrolyte abnormalities Course: 11:02 My independent interpretation patient's laboratory evaluation is as follows: Chronic anemia with an H&H of 10.0 and 27.7 compared to an H&H on 0 02/04/2025 of 8.4 and 23. Platelet count was normal. Absolute nucleated RBC count elevated at 0.57. Percentage of absolute nucleated RBCs elevated at 6.0. These values are reassuring and suggests that he does not have a plastic anemia. Bilirubin elevated 1.7, direct bilirubin was normal at 0.5-consistent with hemolysis caused by his sickle cell disease. AST elevated 39. High sensitive troponin I initially 5.0, 2 hour troponin 3.9-no significant elevation which is reassuring. The patient is not hypoxic, he has no dyspnea on exertion or shortness of breath therefore I do not think that he has pulmonary or infarction/chest syndrome at this time and that has symptoms are consistent with sickle cell crisis. I will obtain a chest x-ray to rule out any pulmonary infiltrates 12:39 Chest x-ray did not reveal any infiltrates. Twelve EKG was unremarkable Patient states that his pain is significantly improved after 1 dose of Dilaudid, I doubt that the patient has significant ischemia/chest syndrome. Patient was discharged home with a prescription for morphine 15 mg pills, 1 pill every 6 hours as needed for pain dispense 10 tablets. I did represcribe the patient's folic acid and hydroxyurea with 6 refills. He is advised to follow up with his PCP/certified procedural coder for further evaluation and return to the emergency department if his symptoms got worse. Differential Diagnosis Differential Diagnoses: The differential diagnosis associated with the presentation includes (See above) Admission/Observation Consideration of admission/observation: Escalation of care including admission/observation considered (Yes) Lab Data MDM Lab Attestation statement: I reviewed the patient's lab results. 04/05/25 09:14 04/05/25 09:14 Labs: Lab Results 04/05/25 04/05/25 Range/Units 09:14 11:07 WBC 9.4 (4.8-10.8) X10*3/uL RBC 2.80 L D (4.60-5.80) X10*6/uL Hgb 10.0 L (14.0-18.0) g/dl Hct 27.7 L D (42.0-52.0) % MCV 98.9 H (80.0-98.0) fL MCH 35.7 H (27.0-33.0) pg MCHC 36.1 H (31.0-36.0) g/dl RDW 16.5 H (11.0-16.0) % Plt Count 307 D (160-400) X10*3/uL MPV 9.7 (9.4-12.4) fL Immature Gran % (Auto) 0.7 H (0.0-0.4) % Neut % (Auto) 46.9 (45-73) % Lymph % (Auto) 42.8 H (20-40) % [place] % (Auto) 7.7 (2-11) % Eos % (Auto) 1.6 (0-4) % Baso % (Auto) 0.3 (0-2) % Lymph # (Auto) 4.0 (1.2-4.9) X10*3/uL [place] # (Auto) 0.7 (0.1-1.2) X10*3/uL Eos # (Auto) 0.2 (0.0-0.4) X10*3/uL Baso # (Auto) 0.0 (0.0-0.2) X10*3/uL Abs Immat Gran (auto) 0.07 H (0.00-0.03) X10*3/uL Absolute Neuts (auto) 4.4 (2.0-8.3) x10*3/uL Absolute Nucleated RBC 0.570 H (0.0-0.012) X10*3/uL Nucleated RBC % (auto) 6.0 H (0.0-0.2) /100WBC Sodium 144 (135-145) mmol/L Potassium 3.9 (3.3-5.1) mmol/L Chloride 108 (96-108) mmol/L Carbon Dioxide 26 (22-29) mmol/L Anion Gap 14 (12-20) BUN 6 L (9-16) mg/dL Creatinine 0.60 (0.5-1.4) mg/dL Estim Creat Clear Calc 183.6 Estimated GFR > 60 Random Glucose 86 (60-115) mg/dL Calcium 9.3 D (8.4-10.2) mg/dL Total Bilirubin 1.7 H (0.0-1.0) mg/dL Direct Bilirubin 0.5 (0.0-0.5) mg/dL AST 39 H (5-37) U/L ALT 20 (0-40) U/L Alkaline Phosphatase 74 (39-117) U/L Troponin I High Sens 5.0 3.9 (<3.5-35.0) ng/L Total Protein 7.8 (6.5-8.0) g/dL Albumin 4.5 (3.5-5.0) g/dL Independent Interpretation I performed an independent interpretation of an: EKG and Plain X-Ray Interpretation: My independent interpretation patient's 12 EKG done on 04/05/2025 at 08:49 hours is as follows: Normal sinus rhythm rate of 64, normal AK interval, QRS duration and QTC interval, no ST segment elevation, no ST segment depression, no PACs, 12:26 hours previous EKG had inverted T-waves V3 through V5 which have now resolved. My independent interpretation patient's chest x-ray is as follows: No acute infiltrate Radiology Impression Discussion of test interpretation with radiology: I have reviewed the radiologist's reading. Radiologist Impression: XR chest 2V IMPRESSION: No active pulmonary disease. Mild cardiac enlargement. Electronically signed by: Mesfin Buchanan MD 04/05/2025 12:00 PM EDT Prescription Management I considered prescription management with: Pain Medication (Morphine) and Other (Sickle cell drugs: Folic acid, hydroxyurea) Chronic Conditions Patient?s care impacted by: Other (Sickle cell disease) Critical Care Time Critical Care Time Critical Care Time: Yes Total Critical Care Time: 35 Attestation: Critical Care: The patient was critically ill with a high probability of imminent or life threatening deterioration. I spent greater than 30 minutes of discontinuous time evaluating the patient,delivering critical care at the bedside, discussing and evaluating pertinent data with consultants. Critical care time does not include time spent performing separately billable procedures or teaching. Total time spent performing critical care was 35 minutes. Discharge Plan Discharge Clinical Impression: Chest pain, Sickle cell crisis Patient Disposition: Home, Self-Care Instructions: Sickle Cell Disease (DC) Additional Instructions: Your blood tests were consistent with your sickle cell disease. Your chest x-ray did not reveal any events for pneumonia which is reassuring Your EKG was normal. You were treated with Dilaudid (hydromorphone) 1 mg IV Take ibuprofen 200 mg pills, 2 pills every 6 hours as needed for pain. Take Tylenol (acetaminophen) 2 pills every 6 hours as needed for pain. For pain not relieved by ibuprofen or Tylenol take morphine 15 mg pills, 1 pill every 6 hours as needed for pain. This medication will make you sleepy, do not drive or work while taking this medication. Morphine is a narcotic medication and can be addicting. If you are concerned about addiction you can ask the pharmacist for less pills or do not get this prescription filled. Continue taking your folic acid and hydroxyurea that has prescribed. I sent prescription for these medications to your pharmacy with refills Follow-up with your doctor/certified procedural coder in 2 days. Please return to the emergency department if your symptoms get worse or if you develop any symptoms that are concerning to you. Prescriptions: New folic acid 1 mg tablet 1 mg PO DAILY 90 Days Qty: 90 3RF hydroxyurea [Hydrea] 500 mg capsule 1,500 mg PO DAILY 90 Days Qty: 270 3RF morphine 15 mg tablet 15 mg PO Q6H PRN (Reason: pain) Qty: 14 0RF Rx Instructions: Partial Fill upon patient request. No Action hydroxyurea 500 mg capsule 1,500 mg PO DAILY folic acid 1 mg tablet 1 mg DAILY ibuprofen 200 mg Tablet 400 mg PO Q6H PRN (Reason: Pain) hydromorphone 2 mg tablet 2 mg PO Q6H PRN (Reason: pain (scale score 7-10)) Qty: 10 0RF Rx Instructions: Partial Fill upon patient request. Print Language: Belarusian
--- NOTE | 2025-04-05 10:46 | PC.NURSE ---
Dr. Contreras at bedside speaking with patient.
[2025-04-05 11:12] VITALS: RESP 14
[2025-04-05 11:14] LABS: Alanine Aminotransferase 20 U/L (0-40); Albumin Level 4.5 g/dL (3.5-5.0); Alkaline Phosphatase 74 U/L (39-117); Aspartate Amino Transferase 39 U/L (5-37); Total Protein 7.8 g/dL (6.5-8.0)
[2025-04-05 11:20] VITALS: BP 121/59; PULSE 52; RESP 15; TEMP 36.6; O2SAT 97
[2025-04-05 11:38] LABS: Troponin-I High Sensitivity 3.9 ng/L (<3.5-35.0)
[2025-04-05 13:30] VITALS: BP 106/72; PULSE 82; RESP 14; TEMP 36.4; O2SAT 97
[2025-04-05 13:32] VITALS: BP 106/72; PULSE 82; RESP 14; TEMP 36.4; O2SAT 97
== END 2025-04-05 13:30 | disposition home or self-care (01) ==
PROVIDERS: Emergency Provider Emergency Medicine Emergency Medical Services; PCP Nurse Practitioner Primary Care
DX: D57.00 Hb-SS disease with crisis, unspecified (principal); D64.9 Anemia, unspecified; Z79.899 Other long term (current) drug therapy
CPT/HCPCS: 36415; 71046; 80048; 80076; 84484; 85025; 93005; 96361; 96374; 96375; 99284; J1171; J1885

== ENCOUNTER → 2025-04-05 08:47 | Outpatient (BNV) | payer SELFPAY | PROVIDERS: Emergency Provider Emergency Medicine Emergency Medical Services; PCP Nurse Practitioner Primary Care; Visit Provider Internal Medicine Cardiovascular Disease | DX: R07.9 Chest pain, unspecified (principal) | CPT/HCPCS: 93010 ==

== ENCOUNTER → 2025-04-05 11:05 | Outpatient (BNV) | payer SELFPAY | PROVIDERS: Emergency Provider Emergency Medicine Emergency Medical Services; PCP Nurse Practitioner Primary Care; Visit Provider Radiology Diagnostic Radiology | DX: I51.7 Cardiomegaly (principal) | CPT/HCPCS: 71046 ==

== ENCOUNTER 2025-04-19 16:12 | Outpatient (REF) | payer OTHER, SELFPAY ==
--- OUTSIDE RECORDS SUMMARY | 2020-09-07 06:44 | XMS_ITS | Continuity of Care Document ---
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 Phone Unavailable Unavailable Unavailable Advance Directives Directive Yes / No Effective Date File Name No Information Encounters Encounter Description Practice Location Reason(s) For Visit Diagnoses Date Provider Providers Copied on Encounter [facility], [address] [place] [address], [id number], tel:[phone] [facility] No Information No Information Family History Family Member Type Diagnosis Age At Onset No Information Payers Payer name Insurance type Covered republican ID Authoriza tion(s) No Information Social History Type Description Quantity Date Captured Comments Sex Male Smoking Status No Information Chief Complaint And Reason For Visit No Information Reason For Referral Reason For Referral No Information History Of Present Illness Encounter Date Complaint History Of Prese nt Illness No Information Functional Status Date Functional Assessmen t No Information Instructions Date Instruction Additional Infor mation No Information Assessments Type Assessment Date No Information Patient Care Teams Name Effective Dates (start - stop) Status Members No Information
--- OUTSIDE RECORDS SUMMARY | 2025-04-19 10:30 | XMS_ITS | Encounter Summary ---
Author Organization [employer] Address [address] [facility] [address] [place] [address] Care Team Providers Care Thaw Shed Heater Tender Name Role Phone Amanda Harrison Primary Care Provider [phone] Reason for Referral * Imaging (Routine) - Authorized Specialty Diagnoses / Procedures Referred By Contac t Referred To Contact Cardiology Diagnoses Sickle cell disease without crisis (CMS/HCC) (HCC) Procedures Transthoracic Echo (TTE) Complete Amanda Harrison ANP [address] [place] [address] Phone: tel: fax: [address] Phone: tel: fax: Referral ID Status Reason Start Date Expiration Date Visits Requested Visits Authorized [id number] Authorized Perform Procedure 04/19/2026 1 1 Reason for Visit * Reason Comments hospital follow up Encounter Details Date Type Department Care Team (Late st Contact Info) Description 04/19/2025 10:30 AM EDT Office Visit [facility] [address] [place], [place] [phone] Amanda Harrison ANP [address] [place], [place] [phone] Routine screening for STI (sexually transmitted infection) (Primary Dx); Sickle cell disease without crisis (CMS/HCC) (HCC); Need for hepatitis B screening test; Hospital discharge follow-up Social History Tobacco Use Types Packs/Day Years [...] Sign Reading Time Taken Comments Blood Pressure 120/80 04/19/2025 10:39 AM EDT Pulse 78 04/19/2025 10:39 AM EDT Temperature 36.8 C (98.3 F) 04/19/2025 10:39 AM EDT Respiratory Rate 12 04/19/2025 10:39 AM EDT Oxygen Saturation 99% 04/19/2025 10:39 AM EDT Inhaled Oxygen Concentration - - Weight 71.2 kg (157 lb) 04/19/2025 10:39 AM EDT Height 167.6 cm (5' 6 ) 04/19/2025 10:39 AM EDT Body Mass Index 25.34 04/19/2025 10:39 AM EDT documented in this encounter Functional Status * Over the last 2 weeks, how often have you been bothered by any of the following problems? Question Answer Date of Assessment Author Feeling nervous, anxious, or on edge 0 04/19/2025 11:40 AM EDT Margie Wilkerson MA Not being able to stop or co ntrol worrying 0 04/19/2025 11:40 AM EDT Margie Wilkerson MA Worrying too much about diff erent things 0 04/19/2025 11:40 AM EDT Margie Wilkerson MA Trouble relaxing 0 04/19/2025 11:40 AM EDT Margie Wilkerson MA Being so restless that it is hard to sit still 0 04/19/2025 11:40 AM EDT Margie Wilkerson MA Becoming easily annoyed or irritable 0 04/19/2025 11:40 AM EDT Margie Wilkerson MA Feeling afraid as if somethi ng awful might happen 0 04/19/2025 11:40 AM EDT Margie Wilkerson MA PIPO-7 Total Score 0 04/19/2025 11:40 AM EDT Margie Wilkerson MA documented as of this encounter Progress Notes * GUSTAVO Tao - 04/19/2025 10:30 AM EDT SUBJECTIVE: Leena Han is a 25 y.o. year old male who presents for HDF. PMH sickle cell Acute Concerns: None. He feels well. No chest pain or SOB since hospital visits. He says hydroxyurea dose not adjusted in last 4 years. Lost his insurance and has not gotten insurance from work. Met with our insurance navigators who recommended what sounds like [employer]. He has not gotten this yet. He is thinking about changing jobs to [employer] and will need work clearance to do this. I reviewed [employer] may require he see a specialist including cardiology given h/o cardiomyopathy. Declines IZ today. Here today for HDF sickle cell crisis Pharmacy Consult Visit Type: HDF Pre-Visit Pharmacist: Radha Ray PharmD Pharmacy Recommendations for provider: If patient is unable to establish care with hematology, please assess need to increase hydroxyurea dose If dose escalation is warranted increase by 500 mg/day (5 mg/kg/day x 68 kg as of 01/05/25, rounded to the nearest 500 mg) and monitor blood counts every 2 weeks Max dose: 35 mg/kg/day Background Pharmacist Radha Ray PharmD contacted patient to discuss upcoming hospital discharge visit for sickle cell crisis : Future Appointments Date Time Provider Department Center 04/19/2025 10:30 AM GUSTAVO Tao [facility] Course and Medication Reconciliation [facility] (02/01/25-02/04/25) Patient admitted for sickle cell disease with acute crisis. Treated with IV fluids and pain control. Symptoms improved and patient discharged home with hydromorphone. Medication changes that occurred during hospitalization include: Added Hydromorphone 2 mg every 6 hours as needed for pain Changed: none Discontinued: none [facility] (04/05/25-04/06/25) Patient with PMH of sickle cell disease presented for evaluation of chest pain. Pain treated with hydromorphone with significant improvement. Discharged home with morphine and refills for chronic medications. Advised to follow up with PCP/hematology. Medication changes that occurred during hospitalization include: Added Morphine 15 mg every 6 hours as needed for pain Changed: none Discontinued: none Preferred Pharmacy: [facility] - [place], [place] - [address] [facility] [address] [facility] [id number] [id number] - [place], [place] - [address] [facility] [id number] Medbox: No Patient Reported History Patient reported they have morphine available however have not used them as they have not had any pain Confirmed active medication list Denied follow up with hematology, reported they haven't seen them for a while because of insurance . Stated they will follow up with their new insurance and see about resuming care Confirmed and agreeable to HDF appointment as listed above Pharmacist Notes 04/05/25: neutrophils absolute 4.4x10^3/uL, platelets 307x10^3/ul, Hgb 10 g/dl CrCl: 171.3 ml/min (scr 0.60 mg/dl on 04/05/25 : IBW), CrCl 182.6 ml/min (ActualBW). No dose adjustment needed at this time Per 2014 [employer] Management of Sickle Cell Disease If dose escalation is warranted based on clinical and laboratory findings, proceed as follows: Increase by 5 mg/kg/day increments every 8 weeks Give until mild myelosuppression (absolute neutrophil count 2,000/uL to 4,000/uL) is achieved, up to a maximum of 35 mg/kg/day. Immunizations The MIIS database was reconciled and patient was not found. Social History Social History Narrative Not on file Problem List[1] Surgical History[2] Family History[3] Review of Systems Constitutional: Negative for chills and fever. HENT: Negative for sore throat. Respiratory: Negative for cough and shortness of breath. Cardiovascular: Negative for chest pain. Gastrointestinal: Negative for constipation and diarrhea. Endocrine: Negative for polydipsia, polyphagia and polyuria. Genitourinary: Negative for dysuria. Skin: Negative for rash. OBJECTIVE: Vitals: 04/19/25 1039 BP: 120/80 BP Location: Right arm Patient Position: Sitting BP Cuff Size: Adult Pulse: 78 Resp: 12 Temp: 98.3 ??F (36.8 ??C) TempSrc: Oral SpO2: 99% Weight: 157 lb (71.2 kg) Height: 5' 6 (1.676 m) Physical Exam Constitutional: General: He is not in acute distress. Appearance: Normal appearance. He is not ill-appearing. HENT: Head: Normocephalic and atraumatic. Eyes: General: No scleral icterus. Extraocular Movements: Extraocular movements intact. Pupils: Pupils are equal, round, and reactive to light. Cardiovascular: Rate and Rhythm: Normal rate and regular rhythm. Heart sounds: Normal heart sounds. Pulmonary: Effort: Pulmonary effort is normal. No accessory muscle usage or respiratory distress. Breath sounds: Normal breath sounds. Neurological: Mental Status: He is alert and oriented to person, place, and time. Psychiatric: Mood and Affect: Mood normal. Behavior: Behavior normal. ASSESSMENT/PLAN Leena was seen today for hospital follow up. Diagnoses and all orders for this visit: Routine screening for STI (sexually transmitted infection) (Primary) - Chlamydia/N. Gonorrhoeae RNA, TMA, Urogenitial - HIV-1/2 Antigen and Antibodies, Fourth Generation, with Reflexes; Future - Syphilis Screen; Future Cardiomyopathy Echo Cards referral placed but on hold d/t pt having HSN only at present Echo requested from [facility] previously and EKG received back, does not appear echo was done, this would have been in 2020/2021. Sickle cell disease without crisis (CMS/HCC) (HCC) Increase dose to 2k daily. Cont folic acid. Update labs in 2 weeks. Reviewed w/ pt importance of specialist follow-up, adherence to lab schedule, need to get insurance sorted as without active insurance unable to process referrals previously placed for hematology or cardiology. - hydroxyurea (Hydrea) 500 MG capsule; Take 4 capsules (2,000 mg total) by mouth Once per day. - CBC auto differential; Future - Comprehensive Metabolic Panel; Future - Transthoracic Echo (TTE) Complete; Future HDF Records, labs, recent test results reviewed summarized as in HPI in pharmacy note Need for hepatitis B screening test - Hepatitis B Core Antibody, Total; Future - Hepatitis B surface antigen, EIA; Future - Hepatitis B Surface Antibody, Qualitative; Future Follow Up: STF 6 weeks to ensure connection w/ specialists, repeat labs Medications Ordered Prior to Encounter[4] Venezuelan Translation: Margie PADGETT provided Venezuelan interpretation. [1] Patient Active Problem List Diagnosis Sickle cell crisis (CMS/HCC) (HCC) Cardiomyopathy (HCC) [2] History reviewed. No pertinent surgical history. [3] Family History Problem Relation Name Age of Onset Sickle cell anemia Other [4] Current Outpatient Medications on File Prior to Visit Medication Sig Dispense Refill folic acid (Folvite) 1 MG tablet TAKE 1 TABLET BY MOUTH EVERY DAY 90 tablet 3 melatonin 3 MG tablet Take 1 tablet (3 mg) by mouth if needed at bedtime for sleep. 90 tablet 1 morphine (MSIR) 15 MG tablet Take 1 tablet by mouth every 6 (six) hours if needed for pain. triamcinolone (Kenalog) 0.1 % cream APPLY TO THE AFFECTED AREA(S) TWICE DAILY IN THE MORNING AND ATBEDTIME NEEDED 30 g 2 [DISCONTINUED] hydroxyurea (Hydrea) 500 MG capsule Take 3 capsules (1,500 mg total) by mouth Once per day. 270 capsule 3 [DISCONTINUED] Sodium Fluoride (PreviDent 5000 Plus) 1.1 % cream Apply 1 mg to teeth 3 times daily.1 g 3 No current facility-administered medications on file prior to visit. documented in this encounter Plan of Treatment Upcoming Encounters Date Type Department Care Team (Late st Contact Info) Description 06/08/2025 3:45 PM EST Office Visit [facility] [address] [place] [address] Amanda Harrison ANP [address] [place] [address] Scheduled Orders Name Type Priority Associated Diagnoses Orde r Schedule Chlamydia/N. Gonorrhoeae RNA, TMA, Urogenitial Microbiology Routine Routine screening for STI (sexually transmitted infection) Ordered: 04/19/2025 CBC auto differential Lab Routine Sickle cell disease without crisis (CMS/HCC) ([facility]) Expected: 04/19/2025 (Approximate), Expires: 04/19/2026 Comprehensive Metabolic Panel Lab Routine Sickle cell disease without crisis (CMS/HCC) (HCC) Expected: 04/19/2025 (Approximate), Expires: 04/19/2026 HIV-1/2 Antigen and Antibodies, Fourth Generation, with Reflexes Lab Routine Routine screening for STI (sexually transmitted infection) Expected: 04/19/2025 (Approximate), Expires: 04/19/2026 Syphilis Screen Lab Routine Routine screening for STI (sexually transmitted infection) Expected: 04/19/2025, Expires: 04/19/2026 Transthoracic Echo (TTE) Complete Echocardiography Routine Sickle cell disease without crisis (CMS/HCC) (HCC) Expected: 04/19/2025 (Approximate), Expires: 04/19/2027 Hepatitis B Core Antibody, Total Lab Routine Need for hepatitis B screening test Expected: 04/19/2025 (Approximate), Expires: 04/19/2026 Hepatitis B surface antigen, EIA Lab Routine Need for hepatitis B screening test Expected: 04/19/2025 (Approximate), Expires: 04/19/2026 Hepatitis B Surface Antibody, Qualitative Lab Routine Need for hepatitis B screening test Expected: 04/19/2025 (Approximate), Expires: 04/19/2026 documented as of this encounter Visit Diagnoses Diagnosis Routine screening for STI (sexually transmitted infection)- Primary Screening examination for venereal disease Sickle cell disease without crisis (CMS/HCC) (HCC) 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
[2025-04-19 18:35] LABS: CT PCR Urine NOT DETECTED (Not Detect.); NG PCR Urine NOT DETECTED (Not Detect.)
--- OUTSIDE RECORDS SUMMARY | 2025-04-19 20:08 | XMS_ITS | Encounter Summary ---
Author Organization [employer] Address [address] [facility] 7t [place] [address] Care Team Providers Care Pipe Line Inspector Name Role Phone Amanda Harrison Primary Care Provider [phone] Encounter Details Date Type Department Care Team (Late st Contact Info) Description 04/19/[address] [facility] [address] [place], [place] [phone] Amanda Harrison ANP [address] [place], [place] [phone] Social History Tobacco Use Types Packs/Day Years [...] t he electric, gas, oil or water Scout threatened to shut off services in your [...] on file documented as of this encounter Functional Status * Over the [...] PIPO-7 Total Score 0 04/19/2025 11:40 AM MICHAELAT Margie Wilkerson MA documented as of this encounter Plan of Treatment Upcoming Encounters Date Type Department Care Team (Late st Contact Info) Description 06/08/2025 3:45 PM EST Office Visit [facility] [address] [place] [address] Amanda Harrison ANP [address] [place] [address] documented as of this encounter Procedures Procedure Name Priority Date/Time Associated Diagnosis Comments CHLAMYDIA/TRICHOMON /NEISSERIA GONORRHOEAE, PCR, URINE Routine 04/19/2025 11:16 AM EDT documented in this encounter Results * Chlamydia/Trichomonas/Neisseria gonorrhoeae, PCR, Urine (04/19/2025 11:16 AM EDT) CT PCR, Urine NOT DETECTED Not Detect. [facility] Comment:A not detected test result does not exclude the possibilityof infection because test results can be affected byimproper specimen collection, concurrent antibiotic therapy,or the number of organisms in the specimen which may bebelow the sensitivity of the test. As with many diagnostictests, results from the Xpert CT/NG assay should beinterpreted in conjunction with other laboratory andclinical data available to the clinician.The Xpert CT/NG assay should not be used for the evaluationof suspected sexual abuse or for other medico-legalindications. Additional testing is recommended in anycircumstance when false positive or false negative resultscould lead to adverse medical, social or psychologicalconsequences. NG PCR, Urine NOT DETECTED Not Detect. [facility] Comment:A not detected test result does not exclude the possibilityof infection because test results can be affected byimproper specimen collection, concurrent antibiotic therapy,or the number of organisms in the specimen which may bebelow the sensitivity of the test. As with many diagnostictests, results from the Xpert CT/NG assay should beinterpreted in conjunction with other laboratory andclinical data available to the clinician.The Xpert CT/NG assay should not be used for the evaluationof suspected sexual abuse or for other medico-legalindications. Additional testing is recommended in anycircumstance when false positive or false negative resultscould lead to adverse medical, social or psychologicalconsequences. 04/19/2025 11:1 6 AM EDT 04/19/2025 4:13 PM EDT [facility] LAB URINE ORDERABLES Final Resul t [facility] [address] [place] [address] [phone] documented in this encounter Visit Diagnoses Not on filedocumented in this encounter Additional Health Concerns Assessment Noted Time PHQ-9 Depression Total Score: 4 09/09/19 25 2:17 PM EDT documented as of this encounter Care Teams Pipe Line Inspector Relationship Specialty Start Date End Date Amanda Harrison ANP [address] [place] [phone] PCP - General Family Medicine 04/11/23 documented as of this encounter
--- OUTSIDE RECORDS SUMMARY | 2025-04-19 20:08 | XMS_ITS | Encounter Summary ---
Author Organization [employer] Address [address] [facility] 7[address] [place] [address] Care Team Providers Care Supervisor Incising Name Role Phone Amanda Harrison Primary Care Provider [phone] Reason for Visit * Reason Onset Date Comments chart prep 04/18/2025 Encounter Details Date Type Department Care Team ([facility] st Contact Info) Description 04/18/2025 Telephone [facility] [address] [place], [place] [phone] Amanda Harrison ANP [address] [place], [place] [phone] chart prep Social History Tobacco Use Types Packs/Day Years [...] as of this encounter Miscellaneous Notes * Telephone Encounter - Margie Wilkerson MA - 04/18/2025 9:23 AM EDT Chart Prep Labs: done Images: done Referrals: complete Vaccines due: Covid, Flu, PCV20, Tdap, Hep B, MCV4, and HPV Screenings: not applicable Overdue care gaps: PIPO-7 and Disability screen documented in this encounter Plan of Treatment Upcoming Encounters Date Type Department Care Team (Late st Contact Info) Description 06/08/2025 3:45 PM EST Office Visit [facility] [address] [place] [phone] Amanda Harrison ANP [address] [place] [phone] documented as of this encounter Visit Diagnoses Not on filedocumented in this encounter Additional Health Concerns Assessment Noted Time PHQ-9 Depression Total Score: 4 09/09/19 25 2:17 PM EDT documented as of this encounter Care Teams Supervisor Incising Relationship Specialty Start Date End Date Amanda Harrison ANP [address] [place] [phone] PCP - General Family Medicine 04/11/23 documented as of this encounter
--- OUTSIDE RECORDS SUMMARY | 2025-04-19 20:08 | XMS_ITS | Clinical Summary ---
Author Organization [employer] Address [address] [facility] [facility] [address] [place] [address] Care Team Providers Care Packing Machine Tender Name Role Phone Lila Frausto Primary Care Provider [phone] Allergies No known active allergies Medications triamcinolone (Kenalog) 0.1 % creamIndication s:Rash APPLY TO THE AFFECTED AREA(S) TWICE DAILY IN THE MORNING AND AT BEDTIME NEEDED 30 g 2 07/08/19 25 Active folic acid (Folvite) 1 MG tabletIndicatio ns:Sickle cell disease without crisis (CMS/HCC) ([facility]) TAKE 1 TABLET BY MOUTH EVERY DAY 90 tablet 3 09/09/19 25 Active melatonin 3 MG tabletIndicatio ns:Insomnia, unspecified type Take 1 tablet (3 mg) by mouth if needed at bedtime for sleep. 90 tablet 1 09/09/19 25 Active morphine (MSIR) 15 MG tablet Take 1 tablet by mouth every 6 (six) hours if needed for pain. 04/05/20 25 Active hydroxyurea (Hydrea) 500 MG capsuleIndicati ons:Sickle cell disease without crisis (CMS/HCC) ([facility]) Take 4 capsules (2,000 mg total) by mouth Once per day. 360 capsule 1 04/19/20 25 Active Sodium Fluoride (PreviDent 5000 Plus) 1.1 % cream Apply 1 mg to teeth 3 times daily. 1 g 3 09/15/19 24 025 Discontinued(Me d list cleanup (will not trigger notification to Pharmacy)) hydroxyurea (Hydrea) 500 MG capsuleIndicati ons:Sickle cell disease without crisis (CMS/HCC) ([facility]) Take 3 capsules (1,500 mg total) by mouth Once per day. 270 capsule 3 01/06/20 25 025 Discontinued(Re order (will not trigger notification to Pharmacy)) Active Problems Problem Noted Date Diagnosed Date Cardiomyopathy 07/08/2023 Sickle cell crisis (CMS/HCC) 02/26/2023 Encounters Date Type Department Care Team Description 04/19/2025 10:30 AM EDT Office Visit [facility] [place] [address] Lila Frausto ANP Routine screening for STI (sexually transmitted infection) (Primary Dx); Sickle cell disease without crisis (CMS/HCC) (HCC); Need for hepatitis B screening test; Hospital discharge follow-up 04/19/2025 Orders Only [address] [address] Lila Frausto ANP 04/19/2025 Travel 04/18/[address] [address] Lila Frausto ANP chart prep 04/07/2025 Patient Outreach [facility] [address] [place], [place] [phone] Lila Frausto ANP Pre-visit Planning (HDF unscheduled, ) 04/05/2025 Results Follow-Up [address] [address] Lila Frausto ANP CBC auto differential, Basic Metabolic Panel, High Sensitivity Troponin I, High Sensitivity Troponin I 04/05/2025 Orders Only [address] [address] Lila Frausto ANP 04/05/2025 Orders Only GENERIC EXTERNAL DATA DEPARTMENT Provider, Generic External Data 02/09/2025 Patient Outreach [address] [address] Lila Frausto ANP Transition Of Care (Tcm) (HDF- Unscheduled -second call ) 2025 Patient Outreach [address] [address] Lila Frausto ANP Transition Of Care (Tcm) (The number you try to call is not reachable. ) 02/01/2025 Orders Only [facility] External Provider, [facility] 02/01/2025 Results Follow-Up [address] [address] Frausto, Lila, ANP Hold Green Gel, Hold Lavender - Possible Hematology, Comprehensive Metabolic Panel from Last 3 Months Family History Medical [...] Mass Index 25.34 04/19/2025 10:39 AM EDT Plan of Treatment Upcoming Encounters Date Type Department Care Team (Late st Contact Info) Description 06/08/2025 3:45 PM EST Office Visit [facility] [address] [place], [place] [phone] Lila Frausto, ANP [address] [place], [place] [phone] Health Maintenance Due Date Last Done Comments [...] 09/08/2025 09/08/2024 Depression Screening 09/08/2025 09/08/2024, 09/08/2024 Disability Screening 04/19/2026 04/19/2025 Tobacco Screening 04/19/2026 04/19/2025 Dental X-Ray: Full Mouth 09/15/2026 09/15/2023 Zoster [...] Procedure Name Priority Date/Time Associated Diagnosis Comments CHLAMYDIA/TRICHOMONAS/ NEISSERIA GONORRHOEAE, PCR, URINE Routine 04/19/2025 11:16 AM EDT XR CHEST 2 VIEWS Routine 04/05/2025 12:0 0 PM EDT HIGH SENSITIVITY TROPONIN I Routine 04/05/2025 11:07 AM EDT HIGH SENSITIVITY TROPONIN I Routine 04/05/2025 9:14 AM EDT BASIC METABOLIC PANEL Routine 04/05/2025 9:14 AM EDT CBC WITH AUTO DIFFERENTIAL Routine 04/05/2025 9:14 AM EDT XR KUB AND UPRIGHT 2 VIEWS Routine 02/03/2025 9:23 AM EDT HOLD LAVENDER - POSSIBLE HEMATOLOGY Routine 02/01/2025 9:50 AM EDT HOLD GREEN GEL Routine 02/01/2025 9:42 AM EDT COMPREHENSIVE METABOLIC PANEL Routine 02/01/2025 9:42 AM EDT HEPATITIS PANEL, GENERAL Routine 11/05/2023 2:49 PM [...] Recently Relevant to Health Maintenance Results * Chlamydia/Trichomonas/Neisseria gonorrhoeae, PCR, Urine (04/19/2025 11:16 AM EDT) Pathologist [facility] CT PCR, Urine NOT DETECTED Not Detect. [facility] Comment:A not detected test result [...] NG PCR, Urine NOT DETECTED Not Detect. [facility] Comment:A not detected test result [...] 6 AM EDT 04/19/2025 4:13 PM EDT us Lila Frausto ANP LAB URINE ORDERABLES Final Resul t Performing Organization Address City/State/[facility] Co de Phone Number [facility] [address] [place] [phone] * XR Chest 2 Views (04/05/2025 12:00 PM EDT) Anatomical Region Laterality Modality Chest Radiographic Susan ging 04/05/2025 12:0 0 PM EDT Narrative 04/05/2025 12:03 PM EDT [address] [address] XRay Report Signed Patient: Leena Campbell MR#: [id number] : 2000 Acct:[id number] Age/Sex: 25 / M ADM Date: 04/05/25 Loc: HO.ED Attending Dr: Ordering Physician: Demarcus Contreras MD Date of Service: 04/05/25 Procedure(s): XR chest 2V Accession Number(s): [id number] cc: LILA FRAUSTO TOOL CRIB MANAGER; Demarcus Contreras MD Reason for Exam: Sickle cell disease, chest pain, R/O infiltrate EXAMINATION: XR CHEST CLINICAL INFORMATION: Sickle cell disease, chest pain, R/O infiltrate COMPARISON: 09/01/2024. 06/22/2024. TECHNIQUE: 2 views of the chest were obtained. FINDINGS: There is mild cardiac enlargement. Mediastinal and hilar contours appear normal. The lungs are clear bilaterally. There is no pneumothorax or pleural effusion. There is no focal osseous or soft tissue abnormality. There is increased density of the osseous structures. XR/XR chest 2V IMPRESSION: No active pulmonary disease. Mild cardiac enlargement. Electronically signed by: Mesfin Buchanan MD 04/05/2025 12:00 PM EDT RP Dictated By: Mesfin Buchanan MD Signed By: <Electronically signed by Mesfin Buchanan MD in OV> 04/05/25 1200 DD/ 1200 TD/TT: 04/05/25 115 Developmental Mathematics Instructor: Procedure Note Donotparmjitinterpreter, Image - 04/05/[address] [address] XRay Report Signed Patient: Atul Campbell#: M [id number] : 2000Acct:[id number] Age/Sex: 25 / MADM Date: 04/05/25 Loc: HO.ED Attending Dr: Ordering Physician: Demarcus Contreras MD Date of Service: 04/05/25 Procedure(s): XR chest 2V Accession Number(s): [id number] cc: LILA FRAUSTO TOOL CRIB MANAGER; Demarcus Contreras MD Reason for Exam: Sickle cell disease, chest pain, R/O infiltrate EXAMINATION: XR CHEST CLINICAL INFORMATION: Sickle cell disease, chest pain, R/O infiltrate COMPARISON: 09/01/2024. 06/22/2024. TECHNIQUE: 2 views of the chest were obtained. FINDINGS: There is mild cardiac enlargement. Mediastinal and hilar contours appear normal. The lungs are clear bilaterally. There is no pneumothorax or pleural effusion. There is no focal osseous or soft tissue abnormality. There is increased density of the osseous structures. XR/XR chest 2V IMPRESSION: No active pulmonary disease. Mild cardiac enlargement. Electronically signed by: Mesfin Buchanan MD 04/05/2025 12:00 PM EDT Dictated By: Mesfin Buchanan MD Signed By: <Electronically signed by Mesfin Buchanan MD in OV> 04/05/25 1200 DD/ 99 TD/TT: 04/05/25 1157 Developmental Mathematics Instructor: [facility] External Provider IMG XR PROCEDURES Final Result * High Sensitivity Troponin I (04/05/2025 11:07 AM EDT) Only the most recent of2 resultswithin the time period is included. TROPONIN I HIGH SENSITIVITY 3.9 <3.5 - 35.0 ng/L [facility] Comment:The Aly high sens itivity Troponin-I results should beused in conjunction with other diagnostic information suchas ECG, clinical observations and information, and patientsymptoms to aid in the diagnosis of VA. 04/05/2025 11:0 7 AM EDT 04/05/2025 11:13 AM EDT us Generic External Data Provider LAB BLOOD ORDERAB LES Final Result [facility] [address] [place] [address] [phone] * (ABNORMAL) CBC auto differential (04/05/2025 9:14 AM EDT) [facility] White Blood Count 9.4 4.8 - 10.8 X10*3/uL [facility] Red Blood Count 2.80(L) 4.60 - 5.80 X10*6/uL [facility] Hemoglobin 10.0(L) 14.0 - 18.0 g/dl [facility] Hematocrit 27.7(L) 42.0 - 52.0 % [facility] Mean Corpuscular Volume 98.9(H) 80.0 - 98.0 fL [facility] Mean Corpuscular Hemoglobin 35.7(H) 27.0 - 33.0 pg [facility] Mean Corpuscular HGB Conc 36.1(H) 31.0 - 36.0 g/dl [facility] Red Cell Distribution Width 16.5(H) 11.0 - 16.0 % [facility] Platelet Count 307 160 - 400 X10*3/uL [facility] Mean Platelet Volume 9.7 9.4 - 12.4 fL [facility] Neutrophils Percent Auto 46.9 45 - 73 % [facility] Imm Gran Pct Auto 0.7(H) 0.0 - 0.4 % [facility] Lymphocytes Percent Auto 42.8(H) 20 - 40 % [facility] Monocytes Percent Auto 7.7 2 - 11 % [facility] Eosinophils Percent Auto 1.6 0 - 4 % [facility] Basophils Percent Auto 0.3 0 - 2 % [facility] NRBC Pct Auto 6.0(H) 0.0 - 0.2 /100WBC [facility] Neutrophils Absolute Auto 4.4 2.0 - 8.3 x10*3/uL [facility] Imm Gran Abs Auto 0.07(H) 0.00 - 0.03 X10*3/uL [facility] Lymphocytes Absolute Auto 4.0 1.2 - 4.9 X10*3/uL [facility] Monocytes Absolute Auto 0.7 0.1 - 1.2 X10*3/uL [facility] Eosinophils Absolute Auto 0.2 0.0 - 0.4 X10*3/uL [facility] Basophils Absolute Auto 0.0 0.0 - 0.2 X10*3/uL [facility] NRBC Abs Auto 0.570(H) 0.0 - 0.012 X10*3/uL [facility] 04/05/2025 9:14 AM EDT 04/05/2025 9:31 AM EDT us Generic External Data Provider LAB BLOOD ORDERAB LES Final Result [facility] [address] [place] [phone] * (ABNORMAL) Basic Metabolic Panel (04/05/2025 9:14 AM EDT) Sodium 144 135 - 145 mmol/L [facility] Potassium 3.9 3.3 - 5.1 mmol/L [facility] Chloride 108 96 - 108 mmol/L [facility] Carbon Dioxide 26 22 - 29 mmol/L [facility] Anion Gap 14 12 - 20 [facility] Urea Nitrogen (BUN) 6(L) 9 - 16 mg/dL [facility] Creatinine, Serum 0.60 0.5 - 1.4 mg/dL [facility] Creatinine Clr Calc Pharmacy 183.6 [facility] Comment:eGFR (calculated fro m the MDRD study equation) and eCrCl(calculated from the Cockcroft-Gault equation) are based ondifferent parameters and may not yield comparable results.If eCrCl result is absurd, please check patient'sheight/weight. Estimated Glomerular Filt Rate >60 [facility] Comment:Chronic Kidney Disea se: Estimated GFR < 60 mL/min/1.83v7Dcwgbh Kidney Disease: Estimated GFR < 15 mL/min/1.73m2 Glucose 86 60 - 115 mg/dL [facility] Calcium 9.3 8.4 - 10.2 mg/dL [facility] 04/05/2025 9:14 AM EDT 04/05/2025 9:31 AM EDT us Generic External Data Provider LAB BLOOD ORDERAB LES Final Result Performing Organization Address City/State/[facility] Co de Phone Number [facility] [address] [place] [phone] * XR KUB and Upright 2 Views (02/03/2025 9:23 AM EDT) Anatomical Region Laterality Modality Radiographic Susan ging 02/03/2025 9:23 AM EDT Narrative 02/03/2025 10:35 AM EDT [address] [address] XRay Report Signed Patient: Leena Campbell MR#: M [id number] : 2000 Acct:[id number] Age/Sex: 24 / M ADM Date: 02/01/25 Loc: [facility] 453-[address]: Dickson Gallego MD Ordering Physician: Dickson Gallego MD Date of Service: 02/03/25 Procedure(s): XR KUB Accession Number(s): [id number] cc: Dickson Gallego MD; LILA FRAUSTO NP [...] Ferny Borden MD 02/03/2025 10:32 AM EDT RP Dictated By: Ferny Hahn MD Signed By: <Electronically signed by Ferny Rosenberg MD in OV> 02/03/25 1032 DD/ 0923 TD/TT: 02/03/25 1020 Developmental Mathematics Instructor: Procedure Note Donotuseinterpreter, Image - 02/03/2025 [place] [address] XRay Report Signed Patient: Atul Campbell#: M [id number] : 2000Acct:[id number] Age/Sex: 24 / MADM Date: 02/01/25 Loc: [facility] 453-[address]: Dickson Gallego MD Ordering Physician: Dickson Gallego MD Date of Service: 02/03/25 Procedure(s): XR KUB Accession Number(s): [id number] cc: Dickson Gallego MD; LILA FRAUSTO NP [...] Ferny Borden MD 02/03/2025 10:32 AM EDT RP Dictated By: Ferny Hahn MD Signed By: <Electronically signed by Ferny Rosenberg MDin OV> 02/03/25 1032 DD/ 0923 TD/TT: 02/03/25 1020 Developmental Mathematics Instructor: [facility] External Provider IMG XR PROCEDURES Final Result * Hold Lavender - Possible Hematology (02/01/2025 9:50 AM EDT) Hold Lavender - Possible Hematololgy SEE NOTE [facility] Comment:Specimen will be hel d untested for 8 hours. Call Hematologyif testing is desired. 02/01/2025 9:50 AM EDT 02/01/2025 10:16 AM EDT Generic External Data Provider HISTORICAL/NON OR DERABLE LABS Final Result Performing Organization Address City/[facility]/ZIP Co de Phone Number [facility] [address] [place] [phone] [phone] * Hold Green Gel (02/01/2025 9:42 AM EDT) Hold Green Gel See Note [facility] Comment:Specimen held untest ed for 24 hours; Call to requestChemistry testing. 02/01/2025 9:42 AM EDT 02/01/2025 9:59 AM EDT Generic External Data Provider HISTORICAL/NON OR DERABLE LABS Final Result Performing Organization Address [facility] Co de Phone Number [facility] [address] [place] [phone] * (ABNORMAL) Comprehensive Metabolic Panel (02/01/2025 9:42 AM EDT) Sodium 139 135 - 145 mmol/L [facility] Potassium 4.1 3.3 - 5.1 mmol/L [facility] Comment:Slight Hemolysis.Int erpret result with caution. Chloride 107 96 - 108 mmol/L [facility] Carbon Dioxide 23 22 - 29 mmol/L [facility] Anion Gap 13 12 - 20 [facility] Urea Nitrogen (BUN) 12 9 - 16 mg/dL [facility] Creatinine, Serum 0.68 0.5 - 1.4 mg/dL [facility] Creatinine Clr Calc Pharmacy 164.8 [facility] Comment:eGFR (calculated fro m the MDRD study equation) and eCrCl(calculated from the Cockcroft-Gault equation) are based ondifferent parameters and may not yield comparable results.If eCrCl result is absurd, please check patient'sheight/weight. Estimated Glomerular Filt Rate >60 [facility] Comment:Chronic Kidney Disea se: Estimated GFR < 60 mL/min/1.11v2Dvrxox Kidney Disease: Estimated GFR < 15 mL/min/1.73m2 Glucose 123(H) 60 - 115 mg/dL [facility] Calcium 9.5 8.4 - 10.2 mg/dL [facility] Bilirubin, Total 1.8(H) 0.0 - 1.0 mg/dL [facility] Aspartate Amino Transferase 64(H) 5 - 37 U/L [facility] Comment:Slight Hemolysis.Int erpret result with caution. Alanine Aminotransferase 41(H) 0 - 40 U/L [facility] Total Protein 8.1(H) 6.5 - 8.0 g/dL [facility] Albumin Level 4.6 3.5 - 5.0 g/dL [facility] Alkaline Phosphatase 77 39 - 117 U/L [facility] 02/01/2025 9:42 AM EDT 02/01/2025 9:51 AM EDT us Generic External Data Provider LAB BLOOD ORDERAB LES Final Result [facility] [address] [place] [address] [phone] * Hepatitis A,B,C Profile (11/05/2023 2:49 PM EDT) Hepatitis A IgM Nonreactive Nonreactive [facility] Comment:IgM antibodies to PATEL V not detected; does not exclude earlyacute or recovered HAV infection. ~Hepatitis B Surface Antibody REACTIVE Nonreactive [facility] Comment:REACTIVE: > 11.99 mI U/mL Hepatitis B Core Antibody Nonreactive Nonreactive [facility] Hepatitis C Antibody Nonreactive Nonreactive [facility] Comment:Antibodies to HCV no t detected; does not exclude early acuteHCV infection. Hepatitis B Surface Ag Negative Negative [facility] Blood Venous blood specimen / Unknown 11/05/2023 2:49 PM EDT 11/05/2023 4:00 PM EDT us Lila Frausto [facility] LAB BLOOD ORDERABLES Final Resul t [facility] [address] [place] [phone] * HIV-1/2 Antigen and Antibodies, Fourth Generation, with Reflexes (11/05/2023 2:49 PM EDT) HIV AB/AG Nonreactive Nonreactive [facility] Comment:HIV-1 p24 Ag and/or HIV-1/HIV-2 Ab not detected.A test result that is nonreactive does not exclude thepossibility of exposure to or infection with HIV-1 and/orHIV-2. Nonreactive results in this assay for individualswith prior exposure to HIV-1 and/or HIV-2 may be due toantigen and antibody levels that are below the limit ofdetection of this assay.The Smule HIV Ag/Ab Combo assay result andsupplemental assay results should be interpreted inconjunction with the patient's clinical presentation,history and other laboratory results. If the results areinconsistent with clinical evidence, additional testing issuggested to confirm the result. Blood Venous blood specimen / Unknown 11/05/2023 2:49 PM EDT 11/05/2023 4:00 PM EDT us Lila CHEN LAB BLOOD ORDERABLES Final Resul t [facility] [address] [place] [address] [phone] from Last 3 Months or Most Recently Relevant to Health Maintenance Insurance [employer] [employer] [place] AD[place] Care Teams Packing Machine Tender Relationship Specialty Start Date End Date Lila Frausto ANP [address] [place] [address] PCP - General Family Medicine 04/11/23
--- OUTSIDE RECORDS SUMMARY | 2025-04-19 20:08 | XMS_ITS | Encounter Summary ---
Author Organization [employer] Address [address] [facility] 7t [place] [address] Care Team Providers Care Electrophysiology Scientist Name Role Phone Amanda Harrison Primary Care Provider [phone] Encounter Details Date Type Department Care Team (Latest Contact Info) Description 04/19/2025 Travel Social History Tobacco Use Types Packs/Day Years [...] your housing situation today? I have areli vickey 08/31/[address] you li [...] Description 06/08/2025 3:45 PM EST Office Visit [facility] [address] [place] [address] Amanda Harrison ANP [address] [place] [address] documented as of this encounter Visit Diagnoses Not on filedocumented in this encounter Additional Health Concerns Assessment Noted Time PHQ-9 Depression Total Score: 4 09/09/19 25 2:17 PM EDT documented as of this encounter Care Teams Electrophysiology Scientist Relationship Specialty Start Date End Date Amanda Harrison ANP [address] [place] [address] PCP - General Family Medicine 04/11/23 documented as of this encounter
--- OUTSIDE RECORDS SUMMARY | 2025-04-19 20:08 | XMS_ITS | Encounter Summary ---
Author Organization [employer] Address [address] [facility] 7t [place] [address] Care Team Providers Care Minister Of Religion Name Role Phone Amanda Harrison Primary Care Provider [phone] Encounter Details Date Type Department Care Team (Late st Contact Info) Description 04/05/2025 Results Follow-Up [facility] [address] [place], [place] [phone] Amanda Harrison ANP [address] [place] [address] CBC auto differential, Basic Metabolic Panel, High Sensitivity Troponin I, High Sensitivity Troponin I Social History Tobacco Use Types Packs/Day Years [...] Result Encounter Note - GUSTAVO Tao - 04/05/2025 4:42 PM EDT Renewed referral to cards and heme documented in this encounter Plan of Treatment Upcoming Encounters Date Type Department Care Team (Late st Contact Info) Description 06/08/2025 3:45 PM EST Office Visit [facility] [address] [place] [phone] Amanda Harrison ANP [address] [place] [address] documented as of this encounter Visit Diagnoses Not on filedocumented in this encounter Additional Health Concerns Assessment Noted Time PHQ-9 Depression Total Score: 4 09/09/19 25 2:17 PM EDT documented as of this encounter Care Teams Minister Of Religion Relationship Specialty Start Date End Date Amanda Harrison ANP [address] [place] [address] PCP - General Family Medicine 04/11/23 documented as of this encounter
--- OUTSIDE RECORDS SUMMARY | 2025-04-19 20:08 | XMS_ITS | Encounter Summary ---
Author Organization [employer] Address [address] [facility] 7t [place] [address] Care Team Providers Care Oyster Tonger Name Role Phone Amanda Harrison Primary Care Provider [phone] Reason for Visit * Reason Onset Date Comments Med Refill 08/26/2023 Encounter Details Date Type Department Care Team (Late st Contact Info) Description 08/26/2023 Refill [facility] [address] [place], [place] [phone] Amanda Harrison ANP [address] [place], [place] [phone] Sickle cell disease without crisis (CMS/HCC) Social [...] with others, in a hotel, in a detention, living outside on the street, on a [...] Industry Job Start Date Job End Date [employer] Not on file Not on file Not on file documented as of this encounter Plan of Treatment Upcoming Encounters Date Type Department Care Team (Late st Contact Info) Description 06/08/2025 3:45 PM EST Office Visit [facility] [address] [place] [phone] Amanda Harrison ANP [address] [place] [phone] documented as of this encounter Visit Diagnoses Diagnosis Sickle cell disease without crisis (CMS/HCC) (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
--- OUTSIDE RECORDS SUMMARY | 2025-04-19 20:08 | XMS_ITS | Encounter Summary ---
Author Organization [employer] Address [address] [facility] 7t [place] [address] Care Team Providers Care Gas Torch Brazier Name Role Phone Amanda Harrison Primary Care Provider [phone] Reason for Visit * Reason Onset Date Comments Med Refill 09/28/2023 Encounter Details Date Type Department Care Team (Late st Contact Info) Description 09/28/2023 Refill [facility] [address] [place], [place] [phone] Amanda Harrison ANP [address] [place] [address] Sickle cell disease without crisis (CMS/HCC) Social [...] Industry Job Start Date Job End Date [employer] Not on file Not on file Not on file documented as of this encounter Plan of Treatment Upcoming Encounters Date Type Department Care Team (Late st Contact Info) Description 06/08/2025 3:45 PM EST Office Visit [facility] [address] [place] [phone] Amanda Harrison ANP [address] [place] [phone] documented as of this encounter Visit Diagnoses Diagnosis Sickle cell disease without crisis (CMS/HCC) (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
== END 2025-04-19 16:13 | disposition home or self-care (01) ==
LOC: HO.HHCLNP 16:12
PROVIDERS: Visit Provider Nurse Practitioner Primary Care
DX: Z20.2 Contact with and (suspected) exposure to infections with a predominantly sexual mode of transmission (principal)
CPT/HCPCS: 87491; 87591

== ENCOUNTER 2025-06-18 04:49 | Emergency (ER) | payer OTHER, SELFPAY ==
--- NOTE | ~2025-06-18 | CT_ITS ---
CLINICAL HISTORY: Rectal pain, low back pain, eval for perirectal ab CT abdomen and pelvis with contrast Comparison: CT/SR - CT ABDOMEN PELVIS W IV CON - 09/01/2024 04:52 PM EDT Findings: The lung bases are clear. The liver, gallbladder, adrenal glands and pancreas are unremarkable. The spleen is shrunken and calcified. The bladder is distended. Kidneys and ureters are unremarkable. No bowel obstruction or free air. Normal appendix. No free fluid or abscess. The perirectal and perianal region also demonstrate no evidence of abscess. Osseous structures demonstrate no acute process. Impression: No acute process. Specifically, no perirectal or perianal abscess. The spleen is shrunken and calcified. This document has been electronically signed by: Miguel Osborne MD on 06/18/2025 09:51:36
--- NOTE | ~2025-06-18 | XR_ITS ---
CLINICAL HISTORY: chest pain 2 view chest x-ray Comparison: CR/SR - XR CHEST 2 VIEWS - 04/05/25 12:00 EDT CR/SR - XR CHEST 2V - 06/22/24 16:35 EST Findings: The lungs are mildly hyperaerated and clear. The heart size is enlarged. 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 No acute fracture is noted. IMPRESSION: 1. No acute findings. This document has been electronically signed by: Enrique Gray MD on 06/18/2025 07:50:52
[2025-06-18 05:07] VITALS: BP 146/86; BP 95/47; PULSE 55; PULSE 77; RESP 20; TEMP 36.8; O2SAT 100; O2SAT 99; BMI 23.9
--- NOTE | 2025-06-18 05:18 | PC.NURSE ---
pt mateo from home, hx of sickle cell anemia taking his prescribed morphine 5 mg PO at 0300, states this is not enough for his pain right now. back pain 04/01. respirations even and unlabored, pt calm and cooperative.
--- OUTSIDE RECORDS SUMMARY | 2025-06-18 06:03 | XMS_ITS | Encounter Summary ---
Author Organization [employer] Address [address] [facility] 7t [place] [address] Care Team Providers Care Software Quality Assurance Specialist Name Role Phone Amanda Harrison Primary Care Provider [phone] Encounter Details Date Type Department Care Team (Late st Contact Info) Description 04/21/2025 Results Follow-Up [facility] [address] [place], [place] [phone] Amanda Harrison ANP [address] [place] [address] Chlamydia/Trichomona s/Neisseria gonorrhoeae, PCR, Urine Social History Tobacco Use Types Packs/Day Years [...] Care Team (Late st Contact Info) Description 08/10/2025 3:15 PM EST Office Visit [facility] [address] [place] [address] Amanda Harrison ANP [address] [place] [address] 09/20/2025 8:00 AM EDT Office Visit [facility] ADULT DENTAL [address] [place] [address] Ryan, Ricarda [address] [place] [address] documented as of this encounter Visit Diagnoses Not on filedocumented in this encounter Additional Health Concerns Assessment Noted Time PHQ-9 Depression Total Score: 4 09/09/19 25 2:17 PM EDT documented as of this encounter Care Teams Software Quality Assurance Specialist Relationship Specialty Start Date End Date Amanda Harrison ANP [address] [place] [phone] PCP - General Family Medicine 04/11/23 documented as of this encounter
--- OUTSIDE RECORDS SUMMARY | 2025-06-18 06:03 | XMS_ITS | Clinical Summary ---
Author Organization [employer] Address 75 [facility] 7t [place] [address] Care Team Providers Care Payroll Tax Specialist Name Role Phone Lila Frausto Primary Care Provider [phone] Allergies No known active allergies Medications triamcinolone (Kenalog) 0.1 % creamIndications :Rash APPLY TO THE AFFECTED AREA(S) TWICE DAILY IN THE MORNING AND AT BEDTIME NEEDED 30 g 2 5 Active folic acid (Folvite) 1 MG tabletIndication s:Sickle cell disease without crisis (CMS/HCC) (HCC) TAKE 1 TABLET BY MOUTH EVERY DAY 90 tablet 3 5 Active melatonin 3 MG tabletIndication s:Insomnia, unspecified type Take 1 tablet (3 mg) by mouth if needed at bedtime for sleep. 90 tablet 1 5 Active morphine (MSIR) 15 MG tablet Take 1 tablet by mouth every 6 (six) hours if needed for pain. 5 Active hydroxyurea (Hydrea) 500 MG capsuleIndicatio ns:Sickle cell disease without crisis (CMS/HCC) (HCC) Take 4 capsules (2,000 mg total) by mouth Once per day. 360 capsule 1 5 Active Active Problems Problem Noted Date Diagnosed Date Cardiomyopathy 07/08/2023 Sickle cell crisis (CMS/HCC) 02/26/2023 Encounters Date Type Department Care Team Description 06/07/2025 Telephone [facility] [address] [place], [place] [phone] Shadia Lopez [place] 05/09/2025 Telephone [facility] [address] [place], [place] [phone] Lila Frausto ANP Nurse Triage 04/21/2025 Results Follow-Up [facility] [address] [place] [address] Lila Frausto ANP Chlamydia/Trichomon as/Neisseria gonorrhoeae, PCR, Urine 04/19/2025 10:30 AM EDT Office Visit [address] [address] Lila Frausto ANP Routine screening for STI (sexually transmitted infection) (Primary Dx); Sickle cell disease without crisis (CMS/HCC) (HCC); Need for hepatitis B screening test; Hospital discharge follow-up 04/19/2025 Orders Only [address] [address] Lila Frausto ANP 04/19/2025 Travel 04/18/[address] [address] Lila Frausto ANP chart prep 04/07/2025 Patient Outreach [facility] [address] [place], [place] [phone] Lila Frausto ANP Pre-visit Planning (HDF unscheduled, ) 04/05/2025 Results Follow-Up [address] [address] Lila Frausto ANP CBC auto differential, Basic Metabolic Panel, High Sensitivity Troponin I, High Sensitivity Troponin I 04/05/2025 Orders Only [address] [address] Lila Frausto ANP 04/05/2025 Orders Only GENERIC EXTERNAL DATA DEPARTMENT Provider, Generic External Data from Last 3 Months Family History Medical [...] Description 08/10/2025 3:15 PM EST Office Visit [facility] [address] [place] [phone] Lila Frausto, ANP [address] [place] [address] 09/20/2025 8:00 AM EDT Office Visit [facility] ADULT DENT[facility] [address] [place] [address] Russ Davisaris [address] [place] [address] Health Maintenance Due Date Last Done Comments Dental Prophylaxis 2001 HIB Vaccines (1 of 1 - Risk 1-dose series) 05/07/2002 Meningococcal Vaccine (1 - Risk 2-dose series) 2003 Meningococcal B Vaccine (1 o f 4 - Increased Risk) 2011 Family Planning (PISQ) [...] [employer]ings 09/15/2024 09/15/2023 COVID-19 Vaccine (1 - 2024-2 6 season) 2025 Influenza Vaccine (#1) 2025 SDOH [...] AUTO DIFFERENTIAL Routine 04/05/2025 9:14 AM EDT HEPATITIS PANEL, GENERAL Routine 11/05/2023 [...] CT PCR, Urine NOT DETECTED Not Detect. [facility] Comment:A not detected test result [...] NG PCR, Urine NOT DETECTED Not Detect. [facility] Comment:A not detected test result [...] 6 AM EDT 04/19/2025 4:13 PM EDT Critical access hospital LAB URINE ORDERABLES Final Resul t Performing Organization Address City/State/[facility] Co de Phone Number [facility] [address] [place] [phone] * XR Chest 2 Views (04/05/2025 12:00 PM EDT) Anatomical Region Laterality Modality Chest Radiographic Susan ging 04/05/2025 12:0 0 PM EDT Narrative 04/05/2025 12:03 PM EDT [address] [address] XRay Report Signed Patient: Leena Campbell MR#: [id number] : 2000 Acct:[id number] Age/Sex: 25 / M ADM Date: 04/05/25 Loc: HO.ED Attending Dr: Ordering Physician: Demarcus Contreras MD Date of Service: 04/05/25 Procedure(s): XR chest 2V Accession Number(s): [id number] cc: LILA FRAUSTO NP; Demarcus Contreras MD Reason for Exam: Sickle [...] OV> 04/05/25 1200 DD/ 1200 TD/TT: 04/05/25 1157 Hospital Clinic Assistant: Procedure Note Donotuseinterpreter, Image - 04/05/2025 [place] [address] XRay Report Signed Patient: Ricco CampbellKiara#: M [id number] : 2000Acct:[id number] Age/Sex: 25 / MADM Date: 04/05/25 Loc: .ED Attending Dr: Ordering Physician: Demarcus Contreras MD Date of Service: 04/05/25 Procedure(s): XR chest 2V Accession Number(s): [id number] cc: LILA FRAUSTO NP; Demarcus Contreras MD Reason for Exam: Sickle [...] OV> 04/05/25 1200 DD/ 1200 TD/TT: 04/05/25 1157 Hospital Clinic Assistant: [facility] External Provider IMG XR PROCEDURES Final Result * High Sensitivity Troponin I (04/05/2025 11:07 AM EDT) Only the most recent of2 resultswithin the time period is included. [facility] TROPONIN I HIGH SENSITIVITY 3.9 <3.5 - 35.0 ng/L [facility] Comment:The Aly high sens itivity Troponin-I results should beused in conjunction with other diagnostic information suchas ECG, clinical observations and information, and patientsymptoms to aid in the diagnosis of AR. 04/05/2025 11:0 7 AM EDT 04/05/2025 11:13 AM EDT Generic External Data Provider LAB BLOOD ORDERAB LES Final Result [facility] [address] [place] [phone] * (ABNORMAL) CBC auto differential (04/05/2025 9:14 AM EDT) [facility] White Blood Count 9.4 4.8 - 10.8 X10*3/uL [facility] Red Blood Count 2.80(L) 4.60 - 5.80 X10*6/uL [facility] Hemoglobin 10.0(L) 14.0 - 18.0 g/dl [facility] Hematocrit 27.7(L) 42.0 - 52.0 % [facility] Mean Corpuscular Volume 98.9(H) 80.0 - 98.0 fL [facility] Mean Corpuscular Hemoglobin 35.7(H) 27.0 - 33.0 pg [facility] Mean Corpuscular HGB Conc 36.1(H) 31.0 - 36.0 g/dl [facility] Red Cell Distribution Width 16.5(H) 11.0 - 16.0 % [facility] Platelet Count 307 160 - 400 X10*3/uL [facility] Mean Platelet Volume 9.7 9.4 - 12.4 fL [facility] Neutrophils Percent Auto 46.9 45 - 73 % [facility] Imm Gran Pct Auto 0.7(H) 0.0 - 0.4 % [facility] Lymphocytes Percent Auto 42.8(H) 20 - 40 % [facility] Monocytes Percent Auto 7.7 2 - 11 % [facility] Eosinophils Percent Auto 1.6 0 - 4 % [facility] Basophils Percent Auto 0.3 0 - 2 % [facility] NRBC Pct Auto 6.0(H) 0.0 - 0.2 /100WBC [facility] Neutrophils Absolute Auto 4.4 2.0 - 8.3 x10*3/uL [facility] Imm Gran Abs Auto 0.07(H) 0.00 - 0.03 X10*3/uL [facility] Lymphocytes Absolute Auto 4.0 1.2 - 4.9 X10*3/uL [facility] Monocytes Absolute Auto 0.7 0.1 - 1.2 X10*3/uL [facility] Eosinophils Absolute Auto 0.2 0.0 - 0.4 X10*3/uL [facility] Basophils Absolute Auto 0.0 0.0 - 0.2 X10*3/uL [facility] NRBC Abs Auto 0.570(H) 0.0 - 0.012 X10*3/uL [facility] 04/05/2025 9:14 AM EDT 04/05/2025 9:31 AM EDT us Generic External Data Provider LAB BLOOD ORDERAB LES Final Result [facility] [address] [place] [phone] [phone] * (ABNORMAL) Basic Metabolic Panel (04/05/2025 9:14 AM EDT) Sodium 144 135 - 145 mmol/L [facility] Potassium 3.9 3.3 - 5.1 mmol/L [facility] Chloride 108 96 - 108 mmol/L [facility] Carbon Dioxide 26 22 - 29 mmol/L [facility] Anion Gap 14 12 - 20 [facility] Urea Nitrogen (BUN) 6(L) 9 - 16 mg/dL [facility] Creatinine, Serum 0.60 0.5 - 1.4 mg/dL [facility] Creatinine Clr Calc Pharmacy 183.6 [facility] Comment:eGFR (calculated fro m the MDRD study equation) and eCrCl(calculated from the Cockcroft-Gault equation) are based ondifferent parameters and may not yield comparable results.If eCrCl result is absurd, please check patient'sheight/weight. Estimated Glomerular Filt Rate >60 [facility] Comment:Chronic Kidney Disea se: Estimated GFR < 60 mL/min/1.18q6Pvedhr Kidney Disease: Estimated GFR < 15 mL/min/1.73m2 Glucose 86 60 - 115 mg/dL [facility] Calcium 9.3 8.4 - 10.2 mg/dL [facility] 04/05/2025 9:14 AM EDT 04/05/2025 9:31 AM EDT us Generic External Data Provider LAB BLOOD ORDERAB LES Final Result [facility] [address] [place] [phone] * Hepatitis A,B,C Profile (11/05/2023 2:49 PM EDT) Hepatitis A IgM Nonreactive Nonreactive [facility] Comment:IgM antibodies to PATEL V not detected; does not exclude earlyacute or recovered HAV infection. ~Hepatitis B Surface Antibody REACTIVE Nonreactive [facility] Comment:REACTIVE: > 11.99 mI U/mL Hepatitis B Core Antibody Nonreactive Nonreactive [facility] Hepatitis C Antibody Nonreactive Nonreactive [facility] Comment:Antibodies to HCV no t detected; does not exclude early acuteHCV infection. Hepatitis B Surface Ag Negative Negative [facility] Blood Venous blood specimen / Unknown 11/05/2023 2:49 PM EDT 11/05/2023 4:00 PM EDT Critical access hospital LAB BLOOD ORDERABLES Final Resul t [facility] [address] [place] [phone] * HIV-1/2 Antigen and Antibodies, Fourth Generation, with Reflexes (11/05/2023 2:49 PM EDT) Pathologist [facility] HIV AB/AG Nonreactive Nonreactive [facility] Comment:HIV-1 p24 Ag and/or HIV-1/HIV-2 Ab not detected.A test result that is nonreactive does not exclude thepossibility of exposure to or infection with HIV-1 and/orHIV-2. Nonreactive results in this assay for individualswith prior exposure to HIV-1 and/or HIV-2 may be due toantigen and antibody levels that are below the limit ofdetection of this assay.The [employer] KCBX HIV Ag/Ab Combo assay result andsupplemental assay results should be interpreted inconjunction with the patient's clinical presentation,history and other laboratory results. If the results areinconsistent with clinical evidence, additional testing issuggested to confirm the result. Blood Venous blood specimen / Unknown 11/05/2023 2:49 PM EDT 11/05/2023 4:00 PM EDT Lila CHEN LAB BLOOD ORDERABLES Final Resul t [facility] [address] [place] [phone] [phone] from Last 3 Months or Most Recently Relevant to Health Maintenance Insurance [facility] MEDICAID STAND ADULT Care Teams Payroll Tax Specialist Relationship Specialty Start Date End Date Lila Frausto ANP [address] [place] [address] PCP - General Family Medicine 04/11/23
--- OUTSIDE RECORDS SUMMARY | 2025-06-18 06:03 | XMS_ITS | Encounter Summary ---
Author Organization [employer] Address [address] [facility] 7t [place] [address] Care Team Providers Care Line Out Man Name Role Phone Amanda Harrison Primary Care Provider [phone] Reason for Visit * Reason Onset Date Comments Med Refill 08/26/2023 Encounter Details Date Type Department Care Team (Late st Contact Info) Description 08/26/2023 Refill [facility] [address] [place], [place] [phone] Amanda Harrison ANP [address] [place], [place] [phone] Sickle cell disease without crisis (CMS/HCC) Social [...] with others, in a hotel, in a mcc, living outside on the street, on a [...] Industry Job Start Date Job End Date [employer] Not on file Not on file Not on file documented as of this encounter Plan of Treatment Upcoming Encounters Date Type Department Care Team (Late st Contact Info) Description 08/10/2025 3:15 PM EST Office Visit [facility] MED[facility]INE [address] [place] [phone] Amanda Harrison ANP [address] [place] [address] 09/20/2025 8:00 AM EDT Office Visit [facility] ADULT D[facility] [address] [place] [address] Ryan, Ricarda [address] [place] [address] documented as of this encounter Visit Diagnoses Diagnosis Sickle cell disease without crisis (CMS/HCC) (HCC) 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
--- OUTSIDE RECORDS SUMMARY | 2025-06-18 06:03 | XMS_ITS | Encounter Summary ---
Author Organization [employer] Address [address] [facility] [address]t [place] [address] Care Team Providers Care Gaming Associate Name Role Phone Amanda Harrison Primary Care Provider [phone] Reason for Visit * Reason Onset Date Comments Med Refill 09/28/2023 Encounter Details Date Type Department Care Team (Late st Contact Info) Description 09/28/2023 Refill [facility] [address] [place], [place] [phone] Amanda Harrison ANP [address] [place] [address] Sickle cell disease without crisis (CMS/HCC) Social [...] with others, in a hotel, in [place] [facility], living outside on the street, on a [...] Industry Job Start Date Job End Date [employer] Not on file Not on file Not on file documented as of this encounter Plan of Treatment Upcoming Encounters Date Type Department Care Team (Late st Contact Info) Description 08/10/2025 3:15 PM EST Office Visit [facility] [address] [place] [phone] Amanda Harrison ANP [address] [place] [address] 09/20/2025 8:00 AM EDT Office Visit [facility] AD[facility] [address] [place] [address] Ryan, Ricarda [address] [place] [address] documented as of this encounter Visit Diagnoses Diagnosis Sickle cell disease without crisis (CMS/HCC) (HCC) 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
[2025-06-18 06:07] LABS: Alanine Aminotransferase 18 U/L (0-40); Albumin Level 4.5 g/dL (3.5-5.0); Alkaline Phosphatase 66 U/L (39-117); Anion Gap 11 (12-20); Aspartate Amino Transferase 40 U/L (5-37); Blood Urea Nitrogen 10 mg/dL (9-16); Calcium 9.3 mg/dL (8.4-10.2); Carbon Dioxide 26 mmol/L (22-29); Chloride 106 mmol/L (96-108); Creatinine Clr Calc Pharmacy 186.7; Estimated Glomerular Filt Rate > 60; Potassium 4.3 mmol/L (3.3-5.1); Sodium 139 mmol/L (135-145); Total Protein 7.7 g/dL (6.5-8.0)
[2025-06-18 06:08] LABS: Hematocrit 28.5 % (42.0-52.0); Hemoglobin 10.4 g/dl (14.0-18.0); Mean Corpuscular HGB Conc 36.5 g/dl (31.0-36.0); Mean Corpuscular Hemoglobin 36.0 pg (27.0-33.0); Mean Corpuscular Volume 98.6 fL (80.0-98.0); NRBC Abs Auto 0.350 X10*3/uL (0.0-0.012); Platelet Count 310 X10*3/uL (160-400); Red Blood Count 2.89 X10*6/uL (4.60-5.80); Reticulocytes Absolute 0.215 X10*6/uL (0.026-0.095); White Blood Count 12.4 X10*3/uL (4.8-10.8)
[2025-06-18 06:11] LABS: NRBC Pct Auto 2.8 /100WBC (0.0-0.2)
[2025-06-18 06:35] LABS: Band Neutrophils Percent 2 % (3-5); Lymphocytes Absolute Manual 3.6 X10*3/uL (1.2-4.9); Lymphocytes Percent Manual 29 % (20-40); Monocytes Absolute Manual 0.2 X10*3/uL (0.1-1.2); Monocytes Percent Manual 2 % (2-11); Neutrophils Absolute Manual 8.6 X10*3/uL (2.0-8.3); Neutrophils Percent Manual 67 % (45-73)
[2025-06-18 06:36] LABS: RBC Morphology NORMAL; Sickle Cells 2+ (3-5) /OIF; Target Cells 1+ (5-14) /OIF
[2025-06-18 06:37] LABS: Polychromasia 1+ (0-2) /OIF; Spherocytes 1+ (0-2) /OIF
[2025-06-18] MEDS: Lactated Ringers 1,000 ML 999 ML IV (06:42)
[2025-06-18 07:03] LABS: Resp Syncy Virus RNA Qual PCR NEGATIVE (Negative); SARS COV2 PCR INHOUSE NEGATIVE (Negative)
[2025-06-18 07:35] VITALS: BP 134/50; PULSE 75; RESP 18; TEMP 36.9; O2SAT 98
--- NOTE | 2025-06-18 08:07 | ED.BACK ---
HPI - Back Pain/Injury General Chief Complaint: Back Pain/Injury Stated Complaint: BACK PAIN,SICKLE CELL DISEASE PER EMS Time Seen by Provider: 06/18/25 05:31 Source: patient, RN notes reviewed and old records reviewed Mode of arrival: ambulatory Limitations: language barrier History of Present Illness ED Provider: Dr. Juli Xie HPI Narrative: 25-year-old male with a history of sickle cell anemia presenting with low back pain that feels similar to previous episodes of sickle cell crisis. States that he has been sick since about 11:00 p.m. last night. Pain began in his low back and is nonradiating, unimproved after taking his 15 mg of morphine which is prescribed to him outpatient. States he has been taking his hydroxyurea and folic acid as prescribed. Otherwise denies fevers, cough or cold-type symptoms, chest pain, difficulty breathing, abdominal pain, loss of bowel or bladder control, dysuria or hematuria, testicular pain or swelling, known sick contacts or travel. Related Data Home Medications ?Medication ?Instructions ?Recorded ?Confirmed folic acid 1 mg tablet 1 mg DAILY 09/01/24 02/01/25 hydroxyurea 500 mg capsule 1,500 mg PO DAILY 09/01/24 02/01/25 ibuprofen 200 mg tablet 400 mg PO Q6H PRN Pain 02/01/25 02/01/25 Previous Rx's ?Medication ?Instructions ?Recorded hydromorphone 2 mg tablet 2 mg PO Q6H PRN pain (scale score 02/04/25 7-10) #10 tabs folic acid 1 mg tablet 1 mg PO DAILY 90 days #90 tabs 04/05/25 hydroxyurea 500 mg capsule (Hydrea) 1,500 mg (3 x 500 mg) PO DAILY 90 04/05/25 days #270 caps morphine 15 mg immediate release 15 mg PO Q6H PRN pain #14 tabs 04/05/25 tablet Allergies Allergy/AdvReac Type Severity Reaction Status Date / Time No Known Allergies Allergy Verified 06/18/25 05:09 Review of Systems Review of Systems: As per HPI, full review of systems performed and negative but for the above mentioned pertinent positives and negatives. [facility] Past Medical History Medical History Sickle cell anemia Social History Social History Household Members: Family Housing: House Do you presently have visiting nurse or other home services: No Alcohol intake: current Alcohol intake frequency: holidays/special occasions only Patient Tobacco Use Status: Never used Tobacco Second Hand Smoke Exposure: No Substance Use Type: Marijuana Advance Directives: No Advance Directives Information Provided: Yes service: No Physical Exam Exam: Exam: GENERAL: Ill-Appearing, appears uncomfortable. SKIN: Normal skin color for ethnicity, warm, dry, no rashes noted. HEENT: Normocephalic, atraumatic, no stridor, dry mucous membranes, dentition intact, EOMI, PERRLA. NECK: Soft, supple, full ROM, midline structures nontender, no step-offs, no deformities, no lymphadenopathy. CHEST: Heart regular tachycardia, no murmurs, symmetric chest rise and fall. PULMONARY: Clear to auscultation bilaterally, diminished at the bases, no labored breathing, no wheezes/rhales/rhonchi. ABDOMINAL: Soft, nondistended, nontender, positive bowel sounds in all quadrants. : Deferred. MUSCULOSKELETAL: Normal tone, full range of motion, no deformities, no peripheral edema. NEURO: Alert and oriented x3, CN II through XII intact, equal strength and sensation bilateral upper and lower extremities, no focal neurologic deficits. PSYCHIATRIC: Flat affect, fluid speech, good eye contact and appropriate demeanor. Vital Signs: Vital Signs: Last Vital Signs Temp 98.5 F 06/18/25 07:35 Pulse 75 06/18/25 07:35 Resp 18 06/18/25 07:35 BP 134/50 L 06/18/25 07:35 Pulse Ox 98 06/18/25 07:35 O2 Del Method Room Air 06/18/25 07:35 BMI result Body Mass Index 23.9 Medications Administered Discontinued Medications Generic Name Dose Route Start Last Admin Trade Name Freq PRN Reason Stop Dose Admin Hydromorphone HCl 1 mg 06/18/25 05:31 06/18/25 06:04 Hydromorphone Hcl 1 Mg/Ml Syringe IVPUSH 06/18/25 05:32 1 mg ONCE ONE Administration Protocol Lactated Ringer's 1,000 mls @ 999 mls/hr 06/18/25 06:31 06/18/25 06:42 Lr IV 06/18/25 07:31 999 mls/hr .Q1H1M ONE Administration Medical Decision Making Medical Decision Making [facility] Narrative: Patient presents today with a chief complaint of back pain in the setting of sickle cell disease. Differential diagnosis includes sickle cell crisis, constipation, musculoskeletal pain, osseous abnormality such as fracture or tumor, infection, spinal cord pathology such as cauda equina syndrome, ligamentous or disc pathology, vascular abnormalities, among many others. I reviewed the list of red flag features such as trauma, weight loss, abnormal neurological findings such as weakness, bowel or bladder incontinence, saddle paresthesia, as well as history of cancer, IV drug abuse, fever, to list a few. Based on history and physical examination, workup was initiated and results were reviewed. Patient medicated with Dilaudid for pain. Reports slight improvement. Workup is consistent with sickle cell crisis with elevated reticulocyte count and anemia. No evidence of infection. Plan for admission for further care and evaluation of sickle cell crisis and for further pain control. Differential Diagnosis Differential Diagnoses: The differential diagnosis associated with the presentation includes (as above) Admission/Observation Consideration of admission/observation: Escalation of care including admission/observation considered Consult Healthcare Provider Management of the patient was discussed with: Hospitalist Lab Data [facility] Lab Attestation statement: I reviewed the patient's lab results. 06/18/25 05:45 06/18/25 05:45 Labs: Lab Results 06/18/25 Range/Units 05:45 WBC 12.4 H (4.8-10.8) X10*3/uL RBC 2.89 L (4.60-5.80) X10*6/uL Hgb 10.4 L (14.0-18.0) g/dl Hct 28.5 L (42.0-52.0) % MCV 98.6 H (80.0-98.0) fL MCH 36.0 H (27.0-33.0) pg MCHC 36.5 H (31.0-36.0) g/dl RDW 15.4 (11.0-16.0) % Plt Count 310 (160-400) X10*3/uL MPV 9.8 (9.4-12.4) fL Immature Gran % (Auto) Cancelled Neut % (Auto) Cancelled Lymph % (Auto) Cancelled [place] % (Auto) Cancelled Eos % (Auto) Cancelled Baso % (Auto) Cancelled Lymph # (Auto) Cancelled [place] # (Auto) Cancelled Eos # (Auto) Cancelled Baso # (Auto) Cancelled Abs Immat Gran (auto) Cancelled Absolute Neuts (auto) Cancelled Absolute Nucleated RBC 0.350 H (0.0-0.012) X10*3/uL Nucleated RBC % (auto) 2.8 H (0.0-0.2) /100WBC Neutrophils % (Manual) 67 (45-73) % Band Neutrophils % 2 L (3-5) % Lymphocytes % (Manual) 29 (20-40) % Monocytes % (Manual) 2 (2-11) % Abs Neuts (Manual) 8.6 H (2.0-8.3) X10*3/uL Lymphocytes # (Manual) 3.6 (1.2-4.9) X10*3/uL Monocytes # (Manual) 0.2 (0.1-1.2) X10*3/uL Nucleated RBCs 7 H (0-0) /100WBC Platelet Estimate NORMAL (NORMAL) Plt Morphology Comment NORMAL RBC Morphology NORMAL Polychromasia 1+ (0-2) /OIF Spherocytes 1+ (0-2) /OIF Sickle Cells 2+ (3-5) /OIF Target Cells 1+ (5-14) /OIF [place] Bodies PRESENT Absolute Retic 0.215 H (0.026-0.095) X10*6/uL Percent Retic 7.4 H (0.5-1.8) % Immature Retic Fraction 40.8 H (2.3-13.4) % Retic Hgb Equivalent 35.8 H (30.0-35.0) pg Sodium 139 (135-145) mmol/L Potassium 4.3 (3.3-5.1) mmol/L Chloride 106 (96-108) mmol/L Carbon Dioxide 26 (22-29) mmol/L Anion Gap 11 L (12-20) BUN 10 (9-16) mg/dL Creatinine 0.59 (0.5-1.4) mg/dL Estim Creat Clear Calc 186.7 Estimated GFR > 60 Random Glucose 101 (60-115) mg/dL Calcium 9.3 (8.4-10.2) mg/dL Total Bilirubin 2.1 H (0.0-1.0) mg/dL AST 40 H (5-37) U/L ALT 18 (0-40) U/L Alkaline Phosphatase 66 (39-117) U/L Total Protein 7.7 (6.5-8.0) g/dL Albumin 4.5 (3.5-5.0) g/dL Independent Interpretation I performed an independent interpretation of an: Plain X-Ray Interpretation: My independent interpretation of the chest x-ray reveals no consolidations, pulmonary edema, pleural effusion, pneumothorax, obvious bony abnormalities. Radiology Impression Discussion of test interpretation with radiology: I have reviewed the radiologist's reading. External Record Review External record reviewed: Inpatient record Prescription Management I considered prescription management with: Pain Medication Chronic Conditions Patient?s care impacted by: Other (Sickle cell disease) Critical Care Time Critical Care Time Critical Care Time: Yes Total Critical Care Time: 35 Attestation: CRITICAL CARE TIME: 35 minutes of critical care time was spent in direct patient care at the bedside or in the immediate area with this patient. Critical care was necessary to treat or prevent imminent or life-threatening deterioration of the following conditions pain crisis due to sickle cell anemia crisis. This patient is high risk for decompensation and/or . This time was spent assessing and managing the patient, interpreting labs and imaging, coordinating care with other medical providers, gathering history from either the patient, their representatives, EMS or chart review, and discussing management with admitting team. Discharge Plan Discharge Clinical Impression: Sickle cell crisis, Low back pain Patient Disposition: Admitted As Inpatient Print Language: Cuban
[2025-06-18 08:26] VITALS: RESP 18
--- NOTE | 2025-06-18 08:28 | PM.IMHP ---
History of Present Illness Date of Service: 06/18/25 Attending physician on admission: Thao Díaz Chief Complaint: back pain PMFSH Medical History Sickle cell anemia Social History Household Members: Family Housing: House Do you presently have visiting nurse or other home services: No Alcohol intake: current Alcohol intake frequency: holidays/special occasions only Patient Tobacco Use Status: Never used Tobacco Second Hand Smoke Exposure: No Substance Use Type: Marijuana Advance Directives: No Advance Directives Information Provided: Yes service: No Meds Allergies Allergy/AdvReac Type Severity Reaction Status Date / Time No Known Allergies Allergy Verified 06/18/25 05:09 Home Medications ?Medication ?Instructions ?Recorded ?Confirmed ?Last Taken ?Type folic acid 1 mg tablet 1 mg DAILY 09/01/24 02/01/25 02/01/25 History hydroxyurea 500 mg capsule 1,500 mg PO DAILY 09/01/24 02/01/25 02/01/25 History ibuprofen 200 mg tablet 400 mg PO Q6H PRN Pain 02/01/25 02/01/25 02/01/25 History Physical Exam Vital Signs and Narrative: Vital Signs: Last Vital Signs Temp 98.5 F 06/18/25 07:35 Pulse 75 06/18/25 07:35 Resp 18 06/18/25 08:26 BP 134/50 L 06/18/25 07:35 Pulse Ox 98 06/18/25 07:35 O2 Del Method Room Air 06/18/25 07:35 BMI result Body Mass Index 23.9 Results Labs 06/18/25 05:45 06/18/25 05:45 Labs: Laboratory Results - last 24 hr 06/18/25 05:45 MCV 98.6 H MCH 36.0 H MCHC 36.5 H RDW 15.4 Plt Count 310 MPV 9.8 Immature Gran % (Auto) Cancelled Neut % (Auto) Cancelled Lymph % (Auto) Cancelled [place] % (Auto) Cancelled Eos % (Auto) Cancelled Baso % (Auto) Cancelled Lymph # (Auto) Cancelled [place] # (Auto) Cancelled Eos # (Auto) Cancelled Baso # (Auto) Cancelled Abs Immat Gran (auto) Cancelled Absolute Neuts (auto) Cancelled Absolute Nucleated RBC 0.350 H Nucleated RBC % (auto) 2.8 H Neutrophils % (Manual) 67 Band Neutrophils % 2 L Lymphocytes % (Manual) 29 Monocytes % (Manual) 2 Abs Neuts (Manual) 8.6 H Lymphocytes # (Manual) 3.6 Monocytes # (Manual) 0.2 Nucleated RBCs 7 H Platelet Estimate NORMAL Plt Morphology Comment NORMAL RBC Morphology NORMAL Polychromasia 1+ (0-2) Spherocytes 1+ (0-2) Sickle Cells 2+ (3-5) Target Cells 1+ (5-14) [place] Bodies PRESENT Absolute Retic 0.215 H Percent Retic 7.4 H Immature Retic Fraction 40.8 H Retic Hgb Equivalent 35.8 H Anion Gap 11 L Estim Creat Clear Calc 186.7 Estimated GFR > 60 Random Glucose 101 Calcium 9.3 Total Bilirubin 2.1 H AST 40 H ALT 18 Alkaline Phosphatase 66 Total Protein 7.7 Albumin 4.5 Quality VTE VTE Risk Level:: Medical - moderate - high VTE Device Contraindication: N/A - Device Ordered VTE Drug Contraindication: Treatment Not Indicated
[2025-06-18] MEDS: iohexoL 350 MG/ML 100 ML INFUS..BTL IV (08:58)
--- NOTE | 2025-06-18 09:32 | PHA.MEDREC ---
Pharmacy Consult ? Medication Reconciliation Pharmacy has completed the medication reconciliation. 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
[2025-06-18] MEDS: Lactated Ringers 1,000 ML 125 ML IVCONT (09:50)
[2025-06-18 12:49] VITALS: BP 139/79; PULSE 84; RESP 18; TEMP 36.8; O2SAT 97
== END 2025-06-18 12:49 | disposition home or self-care (01) ==
PROVIDERS: Emergency Provider Emergency Medicine; PCP Internal Medicine
DX: D57.00 Hb-SS disease with crisis, unspecified (principal); M54.50 Low back pain, unspecified
CPT/HCPCS: 36415; 71046; 74177; 80053; 85007; 85025; 85027; 85045; 87637; 96361; 96374; 96375; 99284; 99285; J1171; J7120; Q9967

== ENCOUNTER → 2025-06-18 06:57 | Outpatient (BNV) | payer OTHER, SELFPAY | PROVIDERS: Emergency Provider Emergency Medicine; PCP Internal Medicine; Visit Provider Radiology Diagnostic Radiology | DX: R10.9 Unspecified abdominal pain (principal); K62.89 Other specified diseases of anus and rectum; R07.9 Chest pain, unspecified | CPT/HCPCS: 71046; 74177 ==